=== PATIENT | female | born 1945 | race Caucasian/White ===

== ENCOUNTER → 2016-10-14 | Outpatient (CLI) | payer MEDICARE, OTHER ==
[2016-10-14 10:06] LABS: CHLORIDE,CL 105 mmol/L (98-110); SODIUM,NA 141 mmol/L (136-146)
== END ==
LOC: MW.CHFP 09:18
PROVIDERS: ATTEND Physician Assistant
DX: R10.11 Right upper quadrant pain (principal)
CPT/HCPCS: 36415; 80053; 85025; 85652; 99214

== ENCOUNTER → 2016-11-04 | Outpatient (CLI) | payer MEDICARE, OTHER | LOC: MW.CHFP 08:00 | PROVIDERS: ATTEND Emergency Medicine | DX: I10 Essential (primary) hypertension (principal); I73.9 Peripheral vascular disease, unspecified; F40.01 Agoraphobia with panic disorder; Z23 Encounter for immunization | CPT/HCPCS: 90732; 99214; G0009 ==

== ENCOUNTER → 2016-12-25 | Outpatient (CLI) | payer MEDICARE, OTHER ==
--- NOTE | 2016-12-25 16:50 | XA ---
Exam Date: 12/25/16 Patient's Age: 71 HEIGHT: 61.5 in. WEIGHT: 146.0 lbs. INDICATIONS: History of cancer, hysterectomy, osteopenic. FRACTURES: TREATMENTS: Allopurinol ASSESSMENT: The BMD measured at Femur Neck Mean is 0.643 g/cm2 with a T-score of -2.8. This patient is considered osteoporotic according to World Health Organization ( WHO) criteria. Fracture risk is high. Pharmacological treatment, if not already prescribed, should be started. A followup bone density test is recommended in one year to monitor response to therapy. The BMD measured at Femur Troch Mean is 0.645 g/cm2 with a T-score of -1.8 is considered moderately low. Fracture risk is moderate. Treatment is advised if there are other risk factors. RESULTS: Site Region Age Classification T-Score BMD AP Spine L2-L4 [age] Osteopenia -2.3 0.934 g/cm2 Dual Femur Neck Mean 71.2 Osteoporosis -2.8 0.643 g/cm2 Dual Femur Troch Mean 73.2 N/A -1.8 0.645 g/cm2 Dual Femur Total Mean 73.2 Osteopenia -2.0 0.750 g/cm2 World Health Organization - Criteria for post-menopausal, women: Normal: T-Score at or above -1 SD Osteopenia: T-Score between -1 and -2.5 SD Osteoporosis: T-Score at or below -2.5 SD RECOMMENDATION: Pharmacologic treatment recommendations & Initiate pharmacologic treatment: - In those with hip or vertebral (clinical or asymptomatic) fractures - In those with T -scores <-2.5 at the femoral neck, total hip, or lumbar spine by DXA - In postmenopausal women and men age 50 and older with low bone mass (T-score between -1.0 and -2.5, osteopenia) at the femoral neck, total hip, or lumbar spine by DXA and a 10-year hip fracture probability >3 % or a 10-year major osteoporosis-related fracture probability >20% based on the [place]-adapted WHO absolute fracture risk model (Fracture Risk Algorithm (FRAX); www. NOF.org and www.shef.ac.uk/FRAX) FOLLOW UP: People with diagnosed cases of osteoporosis or at high risk for fracture should have regular bone mineral density tests. For patients eligible for Medicare, routine testing is allowed once every 2 years. The testing frequency can be increased to 1 year for patients who have rapidly progressing disease, those who are reviewing or discontinuing medial therapy to restore bone mass, or have additional risk factors. People with diagnosed cases of osteoporosis or osteopenia should be regularly tested for bone mineral density. For patient eligible for Medicare, routine testing is allowed once every 2 years. The testing frequency can be increased to 1 year for patients who have rapidly progressing disease, or for those who are receiving medial therapy to restore bone mass. [facility] -- CHANA Trotter [phone] - FAX: [phone] CONNIE
--- NOTE | 2016-12-25 16:53 | MY ---
EXAMINATION: Bilateral digital mammography utilizing CAD. HISTORY: Screening exam. Comparison is made to previous studies dated 10/11/2015, 10/04/2014, 014.. FINDINGS: Bilateral fibroglandular densities. There is a two-view asymmetry which is slightly incre asing within the subareolar left breast posterior depth. Otherwise, no suspicious calcifications, m asses or architectural distortions. No pathologic appearing lymph nodes, no abnormal skin thickeni ng or nipple inversion. Other CAD highlighted regions appear normal at this time. IMPRESSION: BI-RADS category 0 - Incomplete study. Left breast diagnostic is needed for further ev aluation. THE FALSE-NEGATIVE RATE OF MAMMOGRAM IS APPROXIMATELY 10%. MANAGEMENT OF A PALPABLE ABNORMALITY MUST BE BASED UPON CLINICAL GROUNDS. SENSITIVITY FOR DETECTION OF ABNORMALITIES IN DENSE BREASTS IS LOW. NOTE: A letter will be sent to the patient regarding findings. [facility] -- [place] [phone] - FAX [phone]
== END ==
LOC: MW.MAM 12:57
PROVIDERS: ATTEND Obstetrics & Gynecology
DX: Z12.31 Encounter for screening mammogram for malignant neoplasm of breast (principal); N95.1 Menopausal and female climacteric states; M85.88 Other specified disorders of bone density and structure, other site
CPT/HCPCS: 77080; G0202

== ENCOUNTER 2017-12-12 13:23 | Emergency (ER) | payer MEDICARE, OTHER ==
--- NOTE | 2017-12-12 14:05 | EDM.PDOC ---
ED HPI GENERAL MEDICAL PROBLEM - General Chief Complaint: General Stated Complaint: WEAKNESS IN LEGS Time Seen by Provider: 12/12/17 14:02 Source of Information: Reports: Patient History Limitations: Reports: No Limitations - History of Present Illness INITIAL COMMENTS - FREE TEXT/NARRATIVE: HISTORY AND PHYSICAL: []72-year-old female presenting with weakness to her legs History of Present Illness: []Patient has history over the last year of having this weakness off and on She saw Dr. Colmenares 2 weeks ago for this concern. Review of Systems: As per history of present illness and below otherwise all systems reviewed and negative. Past medical history: As per history of present illness and as reviewed below otherwise noncontributory. Surgical history: As per history of present illness and as reviewed below otherwise noncontributory. Social history: No reported history of drug or alcohol abuse. Family history: As per history of present illness and as reviewed below otherwise noncontributory. Physical exam: Alert and oriented female answering questions appropriately in full sentences without any shortness of breath. HEENT: Atraumatic, normocehpalic, pupils reactive, negative for conjunctival pallor or scleral icterus, mucous membranes moist, throat clear, neck supple, nontender, trachea midline. Lungs: Clear to auscultation, breath sounds equal bilaterally, chest non tender. Heart: S1S2, regular, negative for clicks, rubs, or JVD. Abdomen: Soft, nondistended, nontender. Negative for masses or hepatossplenmegaly. Negative for costovertebral tenderness. Pelvis: Stable nontender. Genitourinary: Deferred. Rectal: Deferred Extremities: Atraumatic, negative for cords or calf pain. Weakness with trying to raise knees off the chair. Equal strength with flexion less strength with extension Neurovascular unremarkable. Neuro: Awake, alert, oriented. Cranial nerves II through XII unremarkable. Cerebellum unremarkable. Motor and sensory unremarkable throughout. Exam nonfocal. Discussed the results of testing with patient that given her reassurances all her questions answered verbalizes understanding Diagnostics: []Lumbosacral spine x-ray Thoracic spine x-ray Urinalysis Therapeutics: [] Impression: []Leg weakness Plan: []Discharged to home Follow-up with Dr. Colmenares Return to emergency room as needed Definitive disposition and diagnosis as appropriate pending reevaluation and review of above. - Related Data Allergies Allergy/AdvReac Type Severity Reaction Status Date / Time Penicillins Allergy Mild Cannot Verified 12/12/17 13:32 Remember Home Meds: Home Meds LORazepam 0.5 mg PO TID PRN 12/12/17 [History] Metoprolol Succinate [Toprol XL 50mg] 50 mg PO DAILY 12/12/17 [History] Past Medical History Cardiovascular History: Reports: Hypertension Psychiatric History: Reports: Anxiety Oncologic (Cancer) History: Reports: Breast - Infectious Disease History Infectious Disease History: Reports: Chicken Pox, Measles, Mumps - Past Surgical History Oncologic Surgical History: Reports: Biopsy of Breast, Lumpectomy Social & Family History - Family History Family Medical History: Noncontributory - Tobacco Use Smoking Status *Q: Never Smoker - Recreational Drug Use Recreational Drug Use: No ED ROS GENERAL - Review of Systems Review Of Systems: ROS reveals no pertinent complaints other than HPI. ED EXAM, GENERAL - Physical Exam Exam: See Below (see dictation) Course - Vital Signs Last Recorded V/S: Last Vital Signs Temp 36.9 C 12/12/17 13:34 Pulse 102 H 12/12/17 13:34 Resp 18 12/12/17 13:34 BP 193/82 H 12/12/17 13:34 Pulse Ox 92 L 12/12/17 13:34 - Orders/Labs/Meds Orders: Active Orders 24 hr Category Date Time Status Lumbar Spine 2 or 3V [CR] Stat Exams 12/12/17 14:01 Taken Thoracic Spine 3V [CR] Stat Exams 12/12/17 14:01 Taken UA W/MICROSCOPIC [URIN] Stat Lab 12/12/17 14:21 Ordered Labs: Laboratory Tests 12/12/17 12/12/17 12/12/17 Range/Units 14:21 15:15 15:15 WBC 10.74 (4.0-11.0) K/uL RBC 5.12 (4.30-5.90) M/uL Hgb 15.9 (12.0-16.0) g/dL Hct 45.8 (36.0-46.0) % MCV 89.5 (80.0-98.0) fL MCH 31.1 (27.0-32.0) pg MCHC 34.7 (31.0-37.0) g/dL RDW Std Deviation 43.5 (28.0-62.0) fl RDW Coeff of Bo 13 (11.0-15.0) % Plt Count 287 (150-400) K/uL MPV 10.00 (7.40-12.00) fL Neut % (Auto) 57.9 (48.0-80.0) % Lymph % (Auto) 33.1 (16.0-40.0) % [place] % (Auto) 7.4 (0.0-15.0) % Eos % (Auto) 1.3 (0.0-7.0) % Baso % (Auto) 0.3 (0.0-1.5) % Neut # (Auto) 6.2 H (1.4-5.7) K/uL Lymph # (Auto) 3.6 H (0.6-2.4) K/uL [place] # (Auto) 0.8 (0.0-0.8) K/uL Eos # (Auto) 0.1 (0.0-0.7) K/uL Baso # (Auto) 0.0 (0.0-0.1) K/uL Nucleated RBC % 0.0 /100WBC Nucleated RBCs # 0 K/uL Sodium 138 (136-145) mmol/L Potassium 3.8 (3.5-5.1) mmol/L Chloride 103 (98-107) mmol/L Carbon Dioxide 25.0 (21.0-32.0) mmol/L BUN 13 (7.0-18.0) mg/dL Creatinine 0.8 (0.6-1.0) mg/dL Est Cr Clr Drug Dosing 47.67 mL/min Estimated GFR (MDRD) > 60.0 ml/min Glucose 110 H (74-106) mg/dL Calcium 9.2 (8.5-10.1) mg/dL Magnesium 2.1 H (1.5-2.0) mg/dL Total Bilirubin 0.4 (0.2-1.0) mg/dL AST 25 (15-37) IU/L ALT 39 (14-63) IU/L Alkaline Phosphatase 84 (46-116) U/L Total Protein 7.7 (6.4-8.2) g/dL Albumin 3.8 (3.4-5.0) g/dL Globulin 3.9 H (2.0-3.5) g/dL Albumin/Globulin Ratio 1.0 L (1.3-2.8) Urine Color YELLOW Urine Appearance CLEAR Urine pH 5.0 (5.0-8.0) Ur Specific [place] >= 1.030 (1.001-1.035) Urine Protein NEGATIVE (NEGATIVE) mg/dL Urine Glucose (UA) NEGATIVE (NEGATIVE) mg/dL Urine Ketones TRACE H (NEGATIVE) mg/dL Urine Occult Blood TRACE-INTACT (NEGATIVE) Urine Nitrite NEGATIVE (NEGATIVE) Urine Bilirubin NEGATIVE (NEGATIVE) Urine Urobilinogen 0.2 (<2.0) EU/dL Ur Leukocyte Esterase NEGATIVE (NEGATIVE) Urine RBC 0-1 (0-2/HPF) Urine WBC 0-1 (0-5/HPF) Ur Epithelial Cells RARE (NONE-FEW) Urine Bacteria RARE (NEGATIVE) Departure - Departure Time of Disposition: 16:16 Disposition: Home, Self-Care 01 Condition: Good Clinical Impression: Weakness - Discharge Information Instructions: Weakness, Unpi-ny-Swng Forms: ED Department Discharge - My Orders Last 24 Hours: My Active Orders 12/12/17 14:01 Lumbar Spine 2 or 3V [CR] Stat Thoracic Spine 3V [CR] Stat 12/12/17 14:21 UA W/MICROSCOPIC [URIN] Stat - Assessment/Plan Last 24 Hours: My Active Orders 12/12/17 14:01 Lumbar Spine 2 or 3V [CR] Stat Thoracic Spine 3V [CR] Stat 12/12/17 14:21 UA W/MICROSCOPIC [URIN] Stat
[2017-12-12 15:41] LABS: CHLORIDE,CL 103 mmol/L (98-107); SODIUM,NA 138 mmol/L (136-145)
--- NOTE | 2017-12-14 14:11 | CR ---
EXAM DATE: 12/12/17 PATIENT'S AGE: 72 Patient: CHARMAINE SILVERIO Facility: [place], [place] Site . Site : 1945 Study: XRay Spine Lumbar [id number]/28/2018 3:10:16 PM Ordering Physician: Doctor Holloway Final Report: INDICATION: Weakness to legs TECHNIQUE: Lumbar spine radiograph 3 views COMPARISON: None FINDINGS: Bones: No acute fractures or aggressive bone lesions are identified. Alignment is normal. Moderate diffuse osteopenia is noted and likely due to osteoporosis, given the patient`s age. Discs: Prominent endplate osteophytes are present from L2-L5. Mild degenerative disc narrowing with vacuum phenomena seen at L5-S1. Moderate bilateral facet osteoarthritis is present at L4-5 and L5-S1. Soft tissues: Unremarkable. No radiopaque foreign bodies are seen. Calcification of the abdominal aorta noted. IMPRESSION: 1. No acute osseous injuries or abnormalities are noted. Dictated by Júnior Donis MD @ 12/12/2017 3:15:08 PM Dictated by: Júnior Donis MD @ 12/12/2017 15:15:11 (Electronic Signature) Report Signed by Proxy. CONNIE
--- NOTE | 2017-12-14 14:12 | CR ---
EXAM DATE: 12/12/17 PATIENT'S AGE: 72 Patient: CHARMAINE SILVERIO Facility: [place], [place] Site . Site : 1945 Study: XRay Spine Thoracic [id number]/28/2018 3:10:39 PM Ordering Physician: Doctor Holloway Final Report: INDICATION: Weakness to legs TECHNIQUE: Thoracic spine radiograph 3 views COMPARISON: None FINDINGS: Bones: No acute fractures or aggressive bone lesions are identified. Grade 1 retrolisthesis of C4-5 is noted with moderate to severe degenerative disc disease present at C5-6 and C6-7. Discs: Mild diffuse degenerative disc narrowing with endplate osteophytes are present in the mid and lower thoracic spine. The facet joints are unremarkable. Soft tissues: Unremarkable. No radiopaque foreign bodies are seen. IMPRESSION: 1. No acute osseous injuries or abnormalities are noted. 2. Grade 1 retrolisthesis of C4-5 is noted with moderate to severe degenerative disc disease present at C5-6 and C6-7. Dictated by: Júnior Donis MD @ 12/12/2017 15:17:16 (Electronic Signature) Report Signed by Proxy. CONNIE
== END 2017-12-12 16:37 | disposition home or self-care (01) ==
LOC: MW.ED 13:23
DX: R29.91 Unspecified symptoms and signs involving the musculoskeletal system (principal); I10 Essential (primary) hypertension; Z88.0 Allergy status to penicillin; Z79.899 Other long term (current) drug therapy
CPT/HCPCS: 36415; 72072; 72072-26; 72100; 72100-26; 80053; 81001; 83735; 85025; 99283; 99285

== ENCOUNTER 2018-10-17 10:33 | Emergency (ER) | payer MEDICARE, OTHER ==
--- NOTE | 2018-10-17 11:08 | EDM.PDOC ---
ED HPI GENERAL MEDICAL PROBLEM - General Chief Complaint: General Stated Complaint: FEELING OFF Time Seen by Provider: 10/17/18 10:48 Source of Information: Reports: Patient, Family History Limitations: Reports: No Limitations - History of Present Illness INITIAL COMMENTS - FREE TEXT/NARRATIVE: HISTORY AND PHYSICAL: History of present illness: Patient is a 73-year-old female who presents to the ED today with concerns of not being able to sleep and increased anxiety. Patient states she has a history of anxiety but over the past week she's noticed this has increased. She does see Diana El for medication management of this and has an appointment in a week with her. She states she is concerned that she wakes up at about 2 AM for the past 3 nights and cannot get back to sleep. She states that she "feels off" and is not really able to describe this. Patient's significant other expresses that over the past year he has noticed she's had increased anxiety. Denies any change in to her memory but states that the anxiety has changed over the past year. Patient states she was recently diagnosed with myasthenia gravis and states that she has had an increased anxiety over this. She does see Dr. Colmenares as her primary care provider. She denies fever, chills, shortness of breath, difficulties breathing, chest pain, headache, abdominal pain, burning with urination, diarrhea, constipation, dizziness, lightheadedness, syncope, any recent lifestyle changes, or all other GI, , cardiovascular, or respiratory concerns. Patient does have a history of anxiety and depression but denies any other health history at this time. Review of systems: As per history of present illness and below otherwise all systems reviewed and negative. Past medical history: As per history of present illness and as reviewed below otherwise noncontributory. Surgical history: As per history of present illness and as reviewed below otherwise noncontributory. Social history: See social history for further information Family history: As per history of present illness and as reviewed below otherwise noncontributory. Physical exam: General: Patient is alert, oriented, and in no acute distress. She is mildly anxious appearing pacing around the room. Nontoxic appearing. HEENT: Atraumatic, normocephalic, pupils equal and reactive bilaterally, negative for conjunctival pallor or scleral icterus, mucous membranes moist, TMs normal bilaterally, throat clear, neck supple, nontender, trachea midline. No drooling or trismus noted. No meningeal signs. No hot potato voice noted. Lungs: Clear to auscultation, breath sounds equal bilaterally, chest nontender. Heart: S1S2, regular rate and rhythm without overt murmur Abdomen: Soft, nondistended, nontender. Negative for masses or hepatosplenomegaly. Negative for costovertebral tenderness. Pelvis: Stable nontender. Genitourinary: Deferred. Rectal: Deferred. Skin: Intact, warm, dry. No lesions or rashes noted. Extremities: Atraumatic, moves all per self, negative for cords or calf pain. Neurovascular unremarkable. Neuro: Awake, alert, oriented. Cranial nerves II through XII unremarkable. Cerebellum unremarkable. Motor and sensory unremarkable throughout. Exam nonfocal. Notes: Exam today is unremarkable. Vitals are reassuring. On exam patient is anxious appearing and unable to sit for long periods of time. She currently has an appointment with her psychiatrist, Diana El scheduled in a week who manages her anxiety. We'll do lab work today and EKG to assess for other causes of her increase in anxiety and insomnia. Patient had a brain MRI with and without contrast on 09/10/2018 that showed no acute intracranial findings this was reviewed and followed up by Dr. Garrido. Labs today are unremarkable. EKG is unremarkable. Supportive care measures were reviewed and discussed. Voices understanding and is agreeable to plan of care. Discussed the importance to keep her follow-up with Diana El. She denies any further questions or concerns at this time. Diagnostics: CBC, CMP, TSH, UA, EKG Therapeutics: None Prescription: None Impression: 1. Insomnia 2. Anxiety with depression Plan: 1. Keep your appointment with Diana El for follow-up with your medications. Also, follow up with her primary care provider, Dr. Colmenares. 2. You can use your current medications as prescribed for insomnia and anxiety. 3. Return to the ED as needed and as discussed. Definitive disposition and diagnosis as appropriate pending reevaluation and review of above. - Related Data Allergies Allergy/AdvReac Type Severity Reaction Status Date / Time amoxicillin [From Augmentin] Allergy Rash Verified 10/17/18 10:46 clavulanic acid Allergy Rash Verified 10/17/18 10:46 [From Augmentin] escitalopram Allergy Blurred Verified 10/17/18 10:46 Vision Home Meds: Home Meds LORazepam 0.5 mg PO TID PRN 12/12/17 [History] Metoprolol Succinate [Toprol XL 50mg] 50 mg PO DAILY 12/12/17 [History] Past Medical History HEENT History: Reports: Other (See Below) Other HEENT History: wears glasses, top denture bottom partial Cardiovascular History: Reports: Hypertension, Other (See Below) Other Cardiovascular History: was told she had a murmur in the past Respiratory History: Reports: None Gastrointestinal History: Reports: Colon Polyp, GERD Genitourinary History: Reports: None [employer] History: Reports: Musculoskeletal History: Reports: None Neurological History: Reports: Other (See Below) Other Neuro History: recent diagnosis of myasthenia gravis Psychiatric History: Reports: Anxiety, Depression Endocrine/Metabolic History: Reports: Other (See Below) Hematologic History: Reports: Blood Transfusion(s) Other Hematologic History: blood transfusion as an Immunologic History: Reports: Other (See Below) Oncologic (Cancer) History: Reports: Breast Dermatologic History: Reports: None - Infectious Disease History Infectious Disease History: Reports: Chicken Pox, Measles, Mumps - Past Surgical History Head Surgeries/Procedures: Reports: None GI Surgical History: Reports: Appendectomy, Cholecystectomy, Colonoscopy, Hernia , Abdominal Female Surgical History: Reports: Breast Biopsy, D&C, Hysterectomy, Other ( See Below) Other Female Surgeries/Procedures: bladder surgery Endocrine Surgical History: Reports: Other (See Below) Other Endocrine Surgeries/Procedures: lymphnode removal, right axillary Oncologic Surgical History: Reports: Biopsy of Breast, Lumpectomy Social & Family History - Family History Family Medical History: Noncontributory - Tobacco Use Smoking Status *Q: Never Smoker - Recreational Drug Use Recreational Drug Use: No ED ROS GENERAL - Review of Systems Review Of Systems: ROS reveals no pertinent complaints other than HPI. ED EXAM, GENERAL - Physical Exam Exam: See Below (see dictation) Course - Vital Signs Last Recorded V/S: Last Vital Signs Temp 96.2 F 10/17/18 10:43 Pulse 76 10/17/18 12:20 Resp 18 10/17/18 12:20 BP 162/67 H 10/17/18 12:20 Pulse Ox 95 10/17/18 12:20 - Orders/Labs/Meds Orders: Active Orders 24 hr Category Date Time Status EKG 12 Lead [EKG Documentation Completion] [RC] STAT Care 10/17/18 10:56 Active Labs: Laboratory Tests 10/17/18 10/17/18 10/17/18 Range/Units 11:05 11:05 11:20 WBC 9.97 (4.0-11.0) K/uL RBC 5.21 (4.30-5.90) M/uL Hgb 16.0 (12.0-16.0) g/dL Hct 46.7 H (36.0-46.0) % MCV 89.6 (80.0-98.0) fL MCH 30.7 (27.0-32.0) pg MCHC 34.3 (31.0-37.0) g/dL RDW Std Deviation 44.4 (28.0-62.0) fl RDW Coeff of Bo 14 (11.0-15.0) % Plt Count 297 (150-400) K/uL MPV 10.00 (7.40-12.00) fL Neut % (Auto) 39.9 L (48.0-80.0) % Lymph % (Auto) 52.0 H (16.0-40.0) % [place] % (Auto) 6.5 (0.0-15.0) % Eos % (Auto) 1.1 (0.0-7.0) % Baso % (Auto) 0.5 (0.0-1.5) % Neut # (Auto) 4.0 (1.4-5.7) K/uL Lymph # (Auto) 5.2 H (0.6-2.4) K/uL [place] # (Auto) 0.7 (0.0-0.8) K/uL Eos # (Auto) 0.1 (0.0-0.7) K/uL Baso # (Auto) 0.1 (0.0-0.1) K/uL Nucleated RBC % 0.0 /100WBC Nucleated RBCs # 0 K/uL Sodium 139 (136-145) mmol/L Potassium 4.0 (3.5-5.1) mmol/L Chloride 104 (98-107) mmol/L Carbon Dioxide 24.6 (21.0-32.0) mmol/L BUN 11 (7.0-18.0) mg/dL Creatinine 0.7 (0.6-1.0) mg/dL Est Cr Clr Drug Dosing 52.40 mL/min Estimated GFR (MDRD) > 60.0 ml/min Glucose 117 H (74-106) mg/dL Calcium 9.2 (8.5-10.1) mg/dL Total Bilirubin 0.8 (0.2-1.0) mg/dL AST 20 (15-37) IU/L ALT 26 (14-63) IU/L Alkaline Phosphatase 80 (46-116) U/L Total Protein 7.3 (6.4-8.2) g/dL Albumin 3.6 (3.4-5.0) g/dL Globulin 3.7 (2.6-4.0) g/dL Albumin/Globulin Ratio 1.0 (0.9-1.6) TSH 3rd Generation 1.39 (0.36-3.74) uIU/mL Urine Color YELLOW Urine Appearance CLEAR Urine pH 5.5 (5.0-8.0) Ur Specific [place] <= 1.005 (1.001-1.035) Urine Protein NEGATIVE (NEGATIVE) mg/dL Urine Glucose (UA) NEGATIVE (NEGATIVE) mg/dL Urine Ketones NEGATIVE (NEGATIVE) mg/dL Urine Occult Blood TRACE-INTACT H (NEGATIVE) Urine Nitrite NEGATIVE (NEGATIVE) Urine Bilirubin NEGATIVE (NEGATIVE) Urine Urobilinogen 0.2 (<2.0) EU/dL Ur Leukocyte Esterase NEGATIVE (NEGATIVE) Urine RBC 0-2 (0-2/HPF) Urine WBC 0-2 (0-5/HPF) Ur Epithelial Cells RARE (NONE-FEW) Urine Bacteria RARE (NEGATIVE) Departure - Departure Time of Disposition: 11:50 Disposition: Home, Self-Care 01 Clinical Impression: Anxiety Insomnia Qualifiers: Insomnia type: unspecified Qualified Code(s): G47.00 - Insomnia, unspecified - Discharge Information Instructions: Generalized Anxiety Disorder, Adult, Insomnia Referrals: Rico Colmenares MD [Primary Care Provider] - Forms: ED Department Discharge Additional Instructions: The following information is given to patients seen in the emergency department who are being discharged to home. This information is to outline your options for follow-up care. We provide all patients seen in our emergency department with a follow-up referral. The need for follow-up, as well as the timing and circumstances, are variable depending upon the specifics of your emergency department visit. If you don't have a primary care physician on staff, we will provide you with a referral. We always advise you to contact your personal physician following an emergency department visit to inform them of the circumstance of the visit and for follow-up with them and/or the need for any referrals to a consulting specialist. The emergency department will also refer you to a specialist when appropriate. This referral assures that you have the opportunity for follow-up care with a specialist. All of these measure are taken in an effort to provide you with optimal care, which includes your follow-up. Under all circumstances we always encourage you to contact your private physician who remains a resource for coordinating your care. When calling for follow-up care, please make the office aware that this follow-up is from your recent emergency room visit. If for any reason you are refused follow-up, please contact the [facility] Emergency Department at and asked to speak to the emergency department charge nurse. [facility] [address] [place] [address] [place] [address] 1. Keep your appointment with Diana El for follow-up with your medications. Also, follow up with her primary care provider, Dr. Colmenares. 2. You can use your current medications as prescribed for insomnia and anxiety. 3. Return to the ED as needed and as discussed. - My Orders Last 24 Hours: My Active Orders 10/17/18 10:56 EKG 12 Lead [EKG Documentation Completion] [RC] STAT - Assessment/Plan Last 24 Hours: My Active Orders 10/17/18 10:56 EKG 12 Lead [EKG Documentation Completion] [RC] STAT
[2018-10-17 11:42] LABS: CHLORIDE,CL 104 mmol/L (98-107); SODIUM,NA 139 mmol/L (136-145)
== END 2018-10-17 12:20 | disposition home or self-care (01) ==
LOC: MW.ED 10:33
DX: G47.00 Insomnia, unspecified (principal); F41.8 Other specified anxiety disorders; I10 Essential (primary) hypertension; Z79.899 Other long term (current) drug therapy; Z88.1 Allergy status to other antibiotic agents; Z88.8 Allergy status to other drugs, medicaments and biological substances
CPT/HCPCS: 36415; 80053; 81001; 84443; 85025; 93005; 99283; 99283-25

== ENCOUNTER 2020-02-03 16:39 | Observation (INO) | payer MEDICARE, OTHER ==
--- NOTE | 2020-02-03 17:18 | EDM.PDOC ---
ED HPI GENERAL MEDICAL PROBLEM - General Chief Complaint: General Stated Complaint: FALL Time Seen by Provider: 02/03/20 16:41 Source of Information: Reports: Patient History Limitations: Reports: No Limitations - History of Present Illness INITIAL COMMENTS - FREE TEXT/NARRATIVE: HISTORY AND PHYSICAL: History of present illness: Patient is a 74-year-old female who presents to the emergency room after having fallen for unknown reason. She states she was walking using her cane when she suddenly just fell to the ground hitting her left ribs, left hand and her head. She denies any loss of consciousness. Prior to the fall she was asymptomatic and states "I am not sure why I fell... But I have been doing that more a lot lately". Patient denies any fever, chills, headache, change in vision, syncope or near syncope. Denies any chest pain, back pain, shortness of breath or cough. Denies any abdominal pain, nausea, vomiting, diarrhea, constipation or dysuria. Has not noted any blood in urine or stool. Patient has been eating and drinking appropriately. Review of systems: As per history of present illness and below otherwise all systems reviewed and negative. Past medical history: As per history of present illness and as reviewed below otherwise noncontributory. Surgical history: As per history of present illness and as reviewed below otherwise noncontributor y. Social history: See social history for further information Family history: As per history of present illness and as reviewed below otherwise noncontributory. Physical exam: General: Well-developed and well-nourished 74-year-old female. Alert and oriented. Nontoxic-appearing and in no acute distress. HEENT: Nontender with palpation, no obvious injury, no crepitus noted, normocephalic, pupils equal and reactive bilaterally, negative for conjunctival pallor or scleral icterus, mucous membranes moist, TMs normal bilaterally, throat clear, neck supple, nontender, trachea midline. No drooling or trismus noted. No meningeal signs. No hot potato voice noted. Lungs: Clear to auscultation, breath sounds equal bilaterally, pain with palpation to the left lateral lower chest wall. Heart: S1S2, regular rate and rhythm without overt murmur Abdomen: Soft, nondistended, nontender. Negative for masses or hepatosplenomegaly. Negative for costovertebral tenderness. Pelvis: Stable nontender. C-spine/Back: No pinpoint vertebral tenderness upon palpation. No crepitus, step-offs or obvious deformities. Patient is ambulatory into the emergency room without difficulty or deficit -she uses a 4 prong cane. Able to rock back on heels and walk on toes. Denies any urinary or fecal incontinence. Denies any numbness, tingling or saddle paresthesia. No concerns of serious infection, fracture or cord compression, or cauda equina syndrome. Deep tendon reflexes equal bilaterally. Skin: Bruising to left hand, near the 4-5th digits. Healing bruising noted to the left hip (states its from an old fall). Otherwise skin is intact, warm, dry. No lesions or rashes noted. Extremities: Bruising and tenderness to the left hand along the third through fifth digits. Moves all extremities per self without difficulty or deficits, negative for cords or calf pain. Neurovascular unremarkable. Neuro: Awake, alert, oriented. Cranial nerves II through XII unremarkable. Cerebellum unremarkable. Motor and sensory unremarkable throughout. Exam nonfocal. Notes: Hand x-ray shows diffuse degenerative changes with osteopenia. No acute findings are noted. No acute intracranial abnormalities are noted on the head CT. X-ray of the chest shows two definite rib fracture of the 4th and 5th ribs. Mild left midlung atelectasis. Lab work shows no significant findings. Discussed with patient about possible admission versus discharge with close follow-up, she would rather stay overnight for further evaluation and monitoring. Diagnostics: CBC, CMP, Troponin, EKG, CXR with Rib, Hand x-ray, Orthostatic vitals Therapeutics: SL Impression: Rib Fracture, left Unexplained fall Hand contusion, left Plan: Definitive disposition and diagnosis as appropriate pending reevaluation and review of above. left ribs Pain Score (Numeric/FACES): 4 - Related Data Allergies Allergy/AdvReac Type Severity Reaction Status Date / Time amoxicillin [From Augmentin] Allergy Rash Verified 02/03/20 20:23 clavulanic acid Allergy Rash Verified 02/03/20 20:23 [From Augmentin] escitalopram Allergy Blurred Verified 02/03/20 20:23 Vision mirtazapine Allergy Rash Verified 02/03/20 20:24 tape Allergy Rash Uncoded 02/03/20 20:23 Home Meds: Home Meds Metoprolol Succinate [Toprol XL 50mg] 50 mg PO DAILY 12/12/17 [History] Sertraline [Zoloft] 75 mg PO DAILY 02/03/20 [History] Past Medical History HEENT History: Reports: Other (See Below) Other HEENT History: wears glasses, top denture bottom partial Cardiovascular History: Reports: Hypertension, Other (See Below) Other Cardiovascular History: was told she had a murmur in the past Respiratory History: Reports: None Gastrointestinal History: Reports: Colon Polyp, GERD Genitourinary History: Reports: None [employer] History: Reports: Musculoskeletal History: Reports: None Neurological History: Reports: Other (See Below) Other Neuro History: recent diagnosis of myasthenia gravis Psychiatric History: Reports: Anxiety, Depression Endocrine/Metabolic History: Reports: Other (See Below) Hematologic History: Reports: Blood Transfusion(s) Other Hematologic History: blood transfusion as an infant Immunologic History: Reports: Other (See Below) Oncologic (Cancer) History: Reports: Breast Dermatologic History: Reports: None - Infectious Disease History Infectious Disease History: Reports: Chicken Pox, Measles, Mumps - Past Surgical History Head Surgeries/Procedures: Reports: None GI Surgical History: Reports: Appendectomy, Cholecystectomy, Colonoscopy, Hernia, Abdominal Female Surgical History: Reports: Breast Biopsy, D&C, Hysterectomy, Other (See Below) Other Female Surgeries/Procedures: bladder surgery Endocrine Surgical History: Reports: Other (See Below) Other Endocrine Surgeries/Procedures: lymphnode removal, right axillary Oncologic Surgical History: Reports: Biopsy of Breast, Lumpectomy Social & Family History - Family History Family Medical History: Noncontributory ED ROS GENERAL - Review of Systems Review Of Systems: Comprehensive ROS is negative, except as noted in HPI. ED EXAM, GENERAL - Physical Exam Exam: See Below (See dictation) Course - Vital Signs Last Recorded V/S: Last Vital Signs Temp 96.7 F L 02/03/20 17:05 Pulse 81 02/03/20 19:31 Resp 18 02/03/20 17:05 BP 146/58 H 02/03/20 19:31 Pulse Ox 90 L 02/03/20 19:31 - Orders/Labs/Meds Orders: Active Orders 24 hr Category Date Time Status Admission Status [Patient Status] [ADT] Stat ADT 02/03/20 18:22 Active Ambulate [RC] ASDIRECTED Care 02/03/20 18:56 Active Antiembolic Devices [RC] PER UNIT ROUTINE Care 02/03/20 19:01 Active EKG Documentation Completion [RC] STAT Care 02/03/20 17:06 Active Orthostatic Vital Signs [RC] ASDIRECTED Care 02/03/20 17:06 Active Oxygen Therapy [RC] PRN Care 02/03/20 18:56 Active Pulse Oximetry [RC] PRN Care 02/03/20 19:00 Active RT Aerosol Therapy [RC] ASDIRECTED Care 02/03/20 19:03 Active VTE/DVT Education [RC] PER UNIT ROUTINE Care 02/03/20 18:56 Active Vital Signs [RC] Q4H Care 02/03/20 18:56 Active PT Evaluation and Treatment [CONS] Routine Cons 02/03/20 18:56 Active Heart Healthy Diet [DIET] Diet 02/03/20 Dinner Active Acetaminophen [Tylenol] Med 02/03/20 18:56 Active 650 mg PO Q4H PRN Albuterol/Ipratropium [DuoNeb 3.0-0.5 MG/3 ML] Med 02/03/20 18:56 Active 3 ml NEB Q4HRRT PRN Metoprolol Succinate [Toprol XL] Med 02/04/20 09:00 Active 50 mg PO DAILY Sertraline [Zoloft] Med 02/04/20 09:00 Active 70 mg PO DAILY hydrALAZINE [Apresoline] Med 02/03/20 19:04 Active 20 mg IVPUSH Q4H PRN Sequential Compression Device [OM.PC] Per Unit Routine Oth 02/03/20 19:00 Ordered Medication Orders Acetaminophen (Tylenol) 650 mg PO Q4H PRN PRN Reason: Pain (Mild 1-3)/fever Albuterol/Ipratropium (Duoneb 3.0-0.5 Mg/3 Ml) 3 ml NEB Q4HRRT PRN PRN Reason: Shortness Of Breath/wheezing Hydralazine HCl (Apresoline) 20 mg IVPUSH Q4H PRN PRN Reason: Hypertension Metoprolol Succinate (Toprol Xl) 50 mg PO DAILY GAYLE Morphine Sulfate (Morphine) 1 mg IVPUSH Q4H PRN PRN Reason: Pain Sertraline HCl (Zoloft) 70 mg PO DAILY GAYLE Labs: Laboratory Tests 02/03/20 02/03/20 Range/Units 17:42 17:42 WBC 11.10 H (4.0-11.0) K/uL RBC 4.96 (4.30-5.90) M/uL Hgb 14.4 (12.0-16.0) g/dL Hct 44.9 (36.0-46.0) % MCV 90.5 (80.0-98.0) fL MCH 29.0 (27.0-32.0) pg MCHC 32.1 (31.0-37.0) g/dL RDW Std Deviation 45.3 (28.0-62.0) fl RDW Coeff of Bo 14 (11.0-15.0) % Plt Count 273 (150-400) K/uL MPV 9.70 (7.40-12.00) fL Neut % (Auto) 46.4 L (48.0-80.0) % Lymph % (Auto) 44.1 H (16.0-40.0) % [place] % (Auto) 6.8 (0.0-15.0) % Eos % (Auto) 2.2 (0.0-7.0) % Baso % (Auto) 0.5 (0.0-1.5) % Neut # (Auto) 5.2 (1.4-5.7) K/uL Lymph # (Auto) 4.9 H (0.6-2.4) K/uL [place] # (Auto) 0.8 (0.0-0.8) K/uL Eos # (Auto) 0.2 (0.0-0.7) K/uL Baso # (Auto) 0.1 (0.0-0.1) K/uL Nucleated RBC % 0.0 /100WBC Nucleated RBCs # 0 K/uL Sodium 135 L (136-145) mmol/L Potassium 4.0 (3.5-5.1) mmol/L Chloride 101 (98-107) mmol/L Carbon Dioxide 26.7 (21.0-32.0) mmol/L BUN 21 H (7.0-18.0) mg/dL Creatinine 0.8 (0.6-1.0) mg/dL Est Cr Clr Drug Dosing 45.14 mL/min Estimated GFR (MDRD) > 60.0 ml/min Glucose 118 H (74-106) mg/dL Calcium 8.2 L (8.5-10.1) mg/dL Total Bilirubin 0.3 (0.2-1.0) mg/dL AST 17 (15-37) IU/L ALT 18 (14-63) IU/L Alkaline Phosphatase 82 (46-116) U/L Troponin I < 0.050 (0.000-0.056) ng/mL Total Protein 7.4 (6.4-8.2) g/dL Albumin 3.7 (3.4-5.0) g/dL Globulin 3.7 (2.6-4.0) g/dL Albumin/Globulin Ratio 1.0 (0.9-1.6) Meds: Medications Generic Name Dose Route Start Last Admin Trade Name Freq PRN Reason Stop Dose Admin Acetaminophen 650 mg 02/03/20 18:56 Tylenol PO Q4H PRN Pain (Mild 1-3)/fever Albuterol/Ipratropium 3 ml 02/03/20 18:56 Duoneb 3.0-0.5 Mg/3 Ml NEB Q4HRRT PRN Shortness Of Breath/wheezing Hydralazine HCl 20 mg 02/03/20 19:04 Apresoline IVPUSH Q4H PRN Hypertension Metoprolol Succinate 50 mg 02/04/20 09:00 Toprol Xl PO DAILY GAYLE Morphine Sulfate 1 mg 02/03/20 19:22 Morphine IVPUSH Q4H PRN Pain Sertraline HCl 70 mg 02/04/20 09:00 Zoloft PO DAILY GALYE Discontinued Medications Generic Name Dose Route Start Last Admin Trade Name Freq PRN Reason Stop Dose Admin Lactated Ringer's 1,000 mls @ 125 mls/hr 02/03/20 19:00 Ringers, Lactated IV ASDIRECTED [facility] Tramadol HCl 50 mg 02/03/20 18:55 02/03/20 19:38 Ultram PO 02/03/20 18:56 50 mg ONETIME ONE Administration Departure - Departure Time of Disposition: 22:02 Disposition: Refer to Observation Clinical Impression: Ribs, multiple fractures Qualifiers: Encounter type: initial encounter Fracture type: closed Laterality: left Qualified Code(s): S22.42XA - Multiple fractures of ribs, left side, initial encounter for closed fracture Fall Qualifiers: Encounter type: initial encounter Qualified Code(s): W19.XXXA - Unspecified fall, initial encounter - Discharge Information Sepsis Event Note (ED) - Focused Exam Vital Signs: Vital Signs Temp Pulse Resp BP Pulse Ox 02/03/20 17:05 96.7 F L 80 18 183/73 H 93 L - My Orders Last 24 Hours: My Active Orders 02/03/20 17:06 EKG Documentation Completion [RC] STAT Orthostatic Vital Signs [RC] ASDIRECTED 02/03/20 18:22 Admission Status [Patient Status] [ADT] Stat - Assessment/Plan Last 24 Hours: My Active Orders 02/03/20 17:06 EKG Documentation Completion [RC] STAT Orthostatic Vital Signs [RC] ASDIRECTED 02/03/20 18:22 Admission Status [Patient Status] [ADT] Stat
--- NOTE | 2020-02-03 17:34 | CT ---
Head CT Technique: Multiple axial sections through the brain were obtained. Intravenous contrast was not utilized. Comparison: No prior intracranial imaging. Findings: Ventricles along with basal cisterns and sulci over the convexities are mildly prominent. Mild diminished density is noted within portions of the periventricular white matter which is most likely due to small vessel ischemic demyelination change. 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 No other abnormal parenchymal densities are seen. No evidence of intracranial hemorrhage. No midline shift or mass effect is seen. Bone window settings were reviewed. Visualized mastoid sinuses and visualized paranasal sinuses show nothing acute. No acute calvarial abnormality is appreciated. Impression: 1. Senescent change as noted above. 2. No acute intracranial abnormality is appreciated. Diagnostic code #2 Study was dictated in MDT
--- NOTE | 2020-02-03 17:50 | CR ---
Right hand: 3 views right hand were obtained. Comparison: No prior hand exam Mild joint space narrowing is scattered within the wrist. Chondrocalcinosis is noted within the triangular fibrocartilage. Soft tissue calcification is seen slightly proximal to the PIP joint within the third finger presumably dystrophic. Joint space narrowing is scattered throughout the MCP, DIP and PIP joints. Osteopenia is noted. No acute fracture, dislocation or other bony abnormality is seen. Impression: 1. Diffuse degenerative change as described above with osteopenia. 2. Nothing acute is appreciated on 3 view left hand exam. Diagnostic code #2 Study was dictated in MDT
--- NOTE | 2020-02-03 17:57 | CR ---
Chest and left ribs: Frontal view of the chest was obtained as well as 4 views left ribs. Comparison: Prior chest x-ray of 09/20/18 is available. Heart size at the upper limits of normal. Tortuous thoracic aorta is seen. Upper mediastinum is within normal limits. Slight atelectasis is seen within the left midlung. Minimally displaced fractures are seen within the left fourth and fifth ribs. Impression: 1. 2 definite rib fractures within the left fourth and fifth ribs. 2. Mild left midlung atelectasis. 3. No other acute finding is seen. Diagnostic code #3 Study was dictated in MDT
[2020-02-03 18:11] LABS: BLOOD UREA NITROGEN,BUN 21 mg/dL (7.0-18.0); CARBON DIOXIDE,CO2 26.7 mmol/L (21.0-32.0); CHLORIDE,CL 101 mmol/L (98-107); GLUCOSE RANDOM 118 mg/dL (74-106); SODIUM,NA 135 mmol/L (136-145)
[2020-02-03] MEDS ORDERED: traMADol 50 MG Tab PO ONE (18:55)
[2020-02-03] MEDS ORDERED: Albuterol/Ipratropium 3.0-0.5 MG/3 ML Neb Soln NEB PRN (18:56)
[2020-02-03] MEDS ORDERED: Acetaminophen 325 MG Tab PO PRN (18:56)
[2020-02-03] MEDS ORDERED: Lactated Ringers 1,000 ML IV SCH (19:00)
[2020-02-03] MEDS ORDERED: hydrALAZINE 20 MG/ML SDV IVPUSH PRN (19:04)
--- NOTE | 2020-02-03 19:17 | PCM.HP.2 ---
H&P History of Present Illness - General Date of Service: 02/03/20 Admit Problem/Dx: Admission Diagnosis/Problem Admission Diagnosis/Problem Fall - History of Present Illness Initial Comments - Free Text/Narative: Patient is a 74-year-old female with PMH of HTN, GERD, anxiety, depression, frequent falls for past few years being followed by neurology, who presents to the emergency room after having fallen. She states she was walking using her cane when she suddenly just fell to the ground hitting her left ribs, left hand and her head. She denies any loss of consciousness, chest pain, syncope, pre-syncope, palpitations, numbness, tingling, focal weakness. States she has been falling more often lately. Patient denies any fever, chills, headache, change in vision, Denies any chest pain, back pain, shortness of breath or cough. Denies any abdominal pain, nausea, vomiting, diarrhea, constipation or dysuria. Has not noted any blood in urine or stool. Patient has been eating and drinking appropriately. Patient states she has been worked up for Myasthenia Gravis in past which was negative, her PCP thinks she might have early signs of parkinsonian disease but its all tentative, nothing has been confirm yet. She follows with Dr Garrido on Outpatient basis. In the ER patient was found to have fractured left 4 and 5th rib. Patient was admitted for pain control for the fracture and ambulatory dysfunction. left ribs Pain Score (Numeric/FACES): 4 - Related Data Allergies/Adverse Reactions: Allergies Allergy/AdvReac Type Severity Reaction Status Date / Time amoxicillin [From Augmentin] Allergy Rash Verified 02/03/20 20:23 clavulanic acid Allergy Rash Verified 02/03/20 20:23 [From Augmentin] escitalopram Allergy Blurred Verified 02/03/20 20:23 Vision mirtazapine Allergy Rash Verified 02/03/20 20:24 tape Allergy Rash Uncoded 02/03/20 20:23 Home Medications: Home Meds Metoprolol Succinate [Toprol XL 50mg] 50 mg PO DAILY 12/12/17 [History] Sertraline [Zoloft] 75 mg PO DAILY 02/03/20 [History] Past Medical History HEENT History: Reports: Other (See Below) Other HEENT History: wears glasses, top denture bottom partial Cardiovascular History: Reports: Hypertension, Other (See Below) Other Cardiovascular History: was told she had a murmur in the past Respiratory History: Reports: None Gastrointestinal History: Reports: Colon Polyp, GERD Genitourinary History: Reports: None [employer] History: Reports: Musculoskeletal History: Reports: None Neurological History: Reports: Other (See Below) Other Neuro History: recent diagnosis of myasthenia gravis Psychiatric History: Reports: Anxiety, Depression Endocrine/Metabolic History: Reports: Other (See Below) Hematologic History: Reports: Blood Transfusion(s) Other Hematologic History: blood transfusion as an Immunologic History: Reports: Other (See Below) Oncologic (Cancer) History: Reports: Breast Dermatologic History: Reports: None - Infectious Disease History Infectious Disease History: Reports: Chicken Pox, Measles, Mumps - Past Surgical History Head Surgeries/Procedures: Reports: None GI Surgical History: Reports: Appendectomy, Cholecystectomy, Colonoscopy, Hernia, Abdominal Female Surgical History: Reports: Breast Biopsy, D&C, Hysterectomy, Other (See Below) Other Female Surgeries/Procedures: bladder surgery Endocrine Surgical History: Reports: Other (See Below) Other Endocrine Surgeries/Procedures: lymphnode removal, right axillary Oncologic Surgical History: Reports: Biopsy of Breast, Lumpectomy Social & Family History - Family History Family Medical History: Noncontributory - Tobacco Use Smoking Status *Q: Never Smoker - Recreational Drug Use Recreational Drug Use: No H&P Review of Systems - Review of Systems: Review Of Systems: See Below General: Denies: Fever, Chills, Malaise HEENT: Denies: Dysphasia, Ear Pain Pulmonary: Denies: Shortness of Breath, Wheezing, Pleuritic Chest Pain Cardiovascular: Denies: Chest Pain, Palpitations, Dyspnea on Exertion Gastrointestinal: Denies: Abdominal Pain, Anorexia, Black Stool Genitourinary: Denies: Dysuria, Frequency, Burning Musculoskeletal: Denies: Neck Pain, Shoulder Pain Skin: Denies: Cyanosis, Jaundice, Mottled Psychiatric: Denies: Confusion, Depression, Mood Lability Neurological: Denies: Confusion, Dizziness, Headache Hematologic/Lymphatic: Denies: Anemia, Easy Bleeding, Easy Bruising Immunologic: Denies: Anaphylaxis, Food Allergy, Environmental Allergy Exam - Exam Exam: See Below - Vital Signs Vital Signs: Last Vital Signs Temp 35.9 C L 02/03/20 17:05 Pulse 80 02/03/20 17:05 Resp 18 02/03/20 17:05 BP 183/73 H 02/03/20 17:05 Pulse Ox 93 L 02/03/20 17:05 Weight: 67.585 kg - Exam General: Alert, Oriented, Cooperative Neck: Supple, Trachea Midline Lungs: Clear to Auscultation, Normal Respiratory Effort Cardiovascular: Regular Rate, Regular Rhythm, Normal S1, Normal S2 Back Exam: Normal Inspection. No: CVA Tenderness (L), CVA Tenderness (R), Vertebral Tenderness Extremities: Normal Inspection, Normal Range of Motion, Non-Tender Neuro Extensive - Mental Status: Alert, Oriented x3, Normal Mood/Affect, Normal Cognition, Memory Intact. No: Disorientation to Person, Disorientation to Place, Inattentive, Memory Loss-Remote Events Neuro Extensive - Motor, Sensory, Reflexes: CN II-XII Intact, Normal Reflexes. No: Abnormal Reflexes, Hemeplagia (R), Hemeplagia (L), Pronator Drift (R), Pronator Drift (L) Physical Exam Comments:: left chest wall tenderness - Patient Data Lab Results Last 24 hrs: Laboratory Results - last 24 hr 02/03/20 02/03/20 Range/Units 17:42 17:42 WBC 11.10 H (4.0-11.0) K/uL RBC 4.96 (4.30-5.90) M/uL Hgb 14.4 (12.0-16.0) g/dL Hct 44.9 (36.0-46.0) % MCV 90.5 (80.0-98.0) fL MCH 29.0 (27.0-32.0) pg MCHC 32.1 (31.0-37.0) g/dL RDW Std Deviation 45.3 (28.0-62.0) fl RDW Coeff of Bo 14 (11.0-15.0) % Plt Count 273 (150-400) K/uL MPV 9.70 (7.40-12.00) fL Neut % (Auto) 46.4 L (48.0-80.0) % Lymph % (Auto) 44.1 H (16.0-40.0) % [place] % (Auto) 6.8 (0.0-15.0) % Eos % (Auto) 2.2 (0.0-7.0) % Baso % (Auto) 0.5 (0.0-1.5) % Neut # (Auto) 5.2 (1.4-5.7) K/uL Lymph # (Auto) 4.9 H (0.6-2.4) K/uL [place] # (Auto) 0.8 (0.0-0.8) K/uL Eos # (Auto) 0.2 (0.0-0.7) K/uL Baso # (Auto) 0.1 (0.0-0.1) K/uL Nucleated RBC % 0.0 /100WBC Nucleated RBCs # 0 K/uL Sodium 135 L (136-145) mmol/L Potassium 4.0 (3.5-5.1) mmol/L Chloride 101 (98-107) mmol/L Carbon Dioxide 26.7 (21.0-32.0) mmol/L BUN 21 H (7.0-18.0) mg/dL Creatinine 0.8 (0.6-1.0) mg/dL Est Cr Clr Drug Dosing 45.14 mL/min Estimated GFR (MDRD) > 60.0 ml/min Glucose 118 H (74-106) mg/dL Calcium 8.2 L (8.5-10.1) mg/dL Total Bilirubin 0.3 (0.2-1.0) mg/dL AST 17 (15-37) IU/L ALT 18 (14-63) IU/L Alkaline Phosphatase 82 (46-116) U/L Troponin I < 0.050 (0.000-0.056) ng/mL Total Protein 7.4 (6.4-8.2) g/dL Albumin 3.7 (3.4-5.0) g/dL Globulin 3.7 (2.6-4.0) g/dL Albumin/Globulin Ratio 1.0 (0.9-1.6) Result Diagrams: 02/03/20 17:42 02/03/20 17:42 Sepsis Event Note - Evaluation Sepsis Screening Result: No Definite Risk - Focused Exam Vital Signs: Vital Signs Temp Pulse Resp BP Pulse Ox 02/03/20 17:05 35.9 C L 80 18 183/73 H 93 L Date Exam was Performed: 02/03/20 Time Exam was Performed: 23:26 - Problem List (1) Fall SNOMED Code(s): 5325511, 713771369 ICD Code: W19.XXXA - UNSPECIFIED FALL, INITIAL ENCOUNTER Status: Acute Current Visit: Yes Qualifiers: Encounter type: initial encounter Qualified Code(s): W19.XXXA - Unspecified fall, initial encounter (2) Ribs, multiple fractures SNOMED Code(s): 1753025 ICD Code: S22.49XA - MULTIPLE FRACTURES OF RIBS, UNSP SIDE, INIT FOR CLOS FX Status: Acute Current Visit: Yes Qualifiers: Encounter type: initial encounter Fracture type: closed Laterality: left Qualified Code(s): S22.42XA - Multiple fractures of ribs, left side, initial encounter for closed fracture (3) Anxiety SNOMED Code(s): 38494709 ICD Code: F41.9 - ANXIETY DISORDER, UNSPECIFIED Status: Acute Current Visit: No (4) Insomnia SNOMED Code(s): 549534116 ICD Code: G47.00 - INSOMNIA, UNSPECIFIED Status: Acute Current Visit: No Qualifiers: Insomnia type: unspecified Qualified Code(s): G47.00 - Insomnia, unspecified (5) HTN (hypertension) SNOMED Code(s): 05700046 ICD Code: I10 - ESSENTIAL (PRIMARY) HYPERTENSION Status: Acute Current Visit: Yes Problem List Initiated/Reviewed/Updated: Yes Orders Last 24hrs: Active Orders 24 hr Category Date Time Status Admission Status [Patient Status] [ADT] Stat ADT 02/03/20 18:22 Active Ambulate [RC] ASDIRECTED Care 02/03/20 18:56 Active Antiembolic Devices [RC] PER UNIT ROUTINE Care 02/03/20 19:01 Active EKG Documentation Completion [RC] STAT Care 02/03/20 17:06 Active Orthostatic Vital Signs [RC] ASDIRECTED Care 02/03/20 17:06 Active Oxygen Therapy [RC] PRN Care 02/03/20 18:56 Active Pulse Oximetry [RC] PRN Care 02/03/20 19:00 Active RT Aerosol Therapy [RC] ASDIRECTED Care 02/03/20 19:03 Active VTE/DVT Education [RC] PER UNIT ROUTINE Care 02/03/20 18:56 Active Vital Signs [RC] Q4H Care 02/03/20 18:56 Active PT Evaluation and Treatment [CONS] Routine Cons 02/03/20 18:56 Active Heart Healthy Diet [DIET] Diet 02/03/20 Dinner Active CV Carotid Duplex Comp [US] Routine Exams 02/03/20 19:13 Ordered Echo Comp wo Cont [US] Routine Exams 02/03/20 19:12 Ordered TROPONIN I [CHEM] Routine Lab 02/03/20 21:00 Ordered UA W/MICROSCOPIC [URIN] Stat Lab 02/03/20 19:09 Ordered Acetaminophen [Tylenol] Med 02/03/20 18:56 Active 650 mg PO Q4H PRN Albuterol/Ipratropium [DuoNeb 3.0-0.5 MG/3 ML] Med 02/03/20 18:56 Active 3 ml NEB Q4HRRT PRN Metoprolol Succinate [Toprol XL] Med 02/04/20 09:00 Active 50 mg PO DAILY Sertraline [Zoloft] Med 02/04/20 09:00 Active 70 mg PO DAILY hydrALAZINE [Apresoline] Med 02/03/20 19:04 Active 20 mg IVPUSH Q4H PRN Sequential Compression Device [OM.PC] Per Unit Routine Oth 02/03/20 19:00 Ordered Medication Orders Acetaminophen (Tylenol) 650 mg PO Q4H PRN PRN Reason: Pain (Mild 1-3)/fever Albuterol/Ipratropium (Duoneb 3.0-0.5 Mg/3 Ml) 3 ml NEB Q4HRRT PRN PRN Reason: Shortness Of Breath/wheezing Hydralazine HCl (Apresoline) 20 mg IVPUSH Q4H PRN PRN Reason: Hypertension Metoprolol Succinate (Toprol Xl) 50 mg PO DAILY [facility] Sertraline HCl (Zoloft) 70 mg PO DAILY [facility] Assessment/Plan Comment:: 74 y/o F admitted for ambulatory dysfunction, multiple falls, fractured ribs Last MRI in 2019 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
[2020-02-03] MEDS ORDERED: Morphine 4 MG/ML Syringe IVPUSH PRN (19:22)
[2020-02-04] MEDS: Morphine 2 MG/ML Syringe IVPUSH PRN ×2 (05:03→09:36)
[2020-02-04 06:23] LABS: BLOOD UREA NITROGEN,BUN 18 mg/dL (7.0-18.0); CARBON DIOXIDE,CO2 28.6 mmol/L (21.0-32.0); CHLORIDE,CL 102 mmol/L (98-107); GLUCOSE RANDOM 107 mg/dL (74-106); SODIUM,NA 139 mmol/L (136-145)
[2020-02-04] MEDS ORDERED: Sertraline 50 MG Tab PO SCH (09:00)
[2020-02-04] MEDS ORDERED: Metoprolol Succinate 50 MG Tab.ER PO SCH (09:00)
[2020-02-04] MEDS ORDERED: oxyCODONE 5 MG Tab PO PRN (10:44)
[2020-02-04] MEDS ORDERED: Ketorolac 15 MG/ML SDV IVPUSH PRN (10:45)
[2020-02-04] MEDS ORDERED: cefTRIAXone 1 GM in Premix Bag 1 BAG IV ONE (10:47)
--- NOTE | 2020-02-04 11:45 | PCM.PN ---
- General Info Date of Service: 02/04/20 - Patient Data Vitals - Most Recent: Last Vital Signs Temp 98.2 F 02/04/20 08:00 Pulse 77 02/04/20 09:34 Resp 18 02/04/20 08:00 BP 145/64 H 02/04/20 09:34 Pulse Ox 95 02/04/20 08:00 Weight - Most Recent: 67.585 kg I&O - Last 24 Hours: Intake & Output 02/03/20 02/04/20 02/04/20 22:59 06:59 14:59 Intake Total 250 Output Total 1000 Balance -750 Lab Results Last 24 Hours: Laboratory Results - last 24 hr 02/03/20 02/03/20 02/03/20 Range/Units 17:42 17:42 21:02 WBC 11.10 H (4.0-11.0) K/uL RBC 4.96 (4.30-5.90) M/uL Hgb 14.4 (12.0-16.0) g/dL Hct 44.9 (36.0-46.0) % MCV 90.5 (80.0-98.0) fL MCH 29.0 (27.0-32.0) pg MCHC 32.1 (31.0-37.0) g/dL RDW Std Deviation 45.3 (28.0-62.0) fl RDW Coeff of Bo 14 (11.0-15.0) % Plt Count 273 (150-400) K/uL MPV 9.70 (7.40-12.00) fL Neut % (Auto) 46.4 L (48.0-80.0) % Lymph % (Auto) 44.1 H (16.0-40.0) % [place] % (Auto) 6.8 (0.0-15.0) % Eos % (Auto) 2.2 (0.0-7.0) % Baso % (Auto) 0.5 (0.0-1.5) % Neut # (Auto) 5.2 (1.4-5.7) K/uL Lymph # (Auto) 4.9 H (0.6-2.4) K/uL [place] # (Auto) 0.8 (0.0-0.8) K/uL Eos # (Auto) 0.2 (0.0-0.7) K/uL Baso # (Auto) 0.1 (0.0-0.1) K/uL Nucleated RBC % 0.0 /100WBC Nucleated RBCs # 0 K/uL Sodium 135 L (136-145) mmol/L Potassium 4.0 (3.5-5.1) mmol/L Chloride 101 (98-107) mmol/L Carbon Dioxide 26.7 (21.0-32.0) mmol/L BUN 21 H (7.0-18.0) mg/dL Creatinine 0.8 (0.6-1.0) mg/dL Est Cr Clr Drug Dosing 45.14 mL/min Estimated GFR (MDRD) > 60.0 ml/min Glucose 118 H (74-106) mg/dL Calcium 8.2 L (8.5-10.1) mg/dL Magnesium (1.8-2.4) mg/dL Total Bilirubin 0.3 (0.2-1.0) mg/dL AST 17 (15-37) IU/L ALT 18 (14-63) IU/L Alkaline Phosphatase 82 (46-116) U/L Troponin I < 0.050 <0.050 (0.000-0.056) ng/mL Total Protein 7.4 (6.4-8.2) g/dL Albumin 3.7 (3.4-5.0) g/dL Globulin 3.7 (2.6-4.0) g/dL Albumin/Globulin Ratio 1.0 (0.9-1.6) Urine Color Urine Appearance Urine pH (5.0-8.0) Ur Specific [place] (1.001-1.035) Urine Protein (NEGATIVE) mg/dL Urine Glucose (UA) (NEGATIVE) mg/dL Urine Ketones (NEGATIVE) mg/dL Urine Occult Blood (NEGATIVE) Urine Nitrite (NEGATIVE) Urine Bilirubin (NEGATIVE) Urine Urobilinogen (<2.0) EU/dL Ur Leukocyte Esterase (NEGATIVE) Urine RBC (0-2/HPF) Urine WBC (0-5/HPF) Ur Epithelial Cells (NONE-FEW) Urine Bacteria (NEGATIVE) 02/03/20 02/03/20 02/04/20 Range/Units 21:02 23:00 05:55 WBC 10.47 (4.0-11.0) K/uL RBC 4.72 (4.30-5.90) M/uL Hgb 13.6 (12.0-16.0) g/dL Hct 42.2 (36.0-46.0) % MCV 89.4 (80.0-98.0) fL MCH 28.8 (27.0-32.0) pg MCHC 32.2 (31.0-37.0) g/dL RDW Std Deviation 44.5 (28.0-62.0) fl RDW Coeff of Bo 14 (11.0-15.0) % Plt Count 237 (150-400) K/uL MPV 10.10 (7.40-12.00) fL Neut % (Auto) 58.2 (48.0-80.0) % Lymph % (Auto) 30.9 (16.0-40.0) % [place] % (Auto) 9.5 (0.0-15.0) % Eos % (Auto) 0.9 (0.0-7.0) % Baso % (Auto) 0.5 (0.0-1.5) % Neut # (Auto) 6.1 H (1.4-5.7) K/uL Lymph # (Auto) 3.2 H (0.6-2.4) K/uL [place] # (Auto) 1.0 H (0.0-0.8) K/uL Eos # (Auto) 0.1 (0.0-0.7) K/uL Baso # (Auto) 0.1 (0.0-0.1) K/uL Nucleated RBC % 0.0 /100WBC Nucleated RBCs # 0 K/uL Sodium (136-145) mmol/L Potassium (3.5-5.1) mmol/L Chloride (98-107) mmol/L Carbon Dioxide (21.0-32.0) mmol/L BUN (7.0-18.0) mg/dL Creatinine (0.6-1.0) mg/dL Est Cr Clr Drug Dosing mL/min Estimated GFR (MDRD) ml/min Glucose (74-106) mg/dL Calcium (8.5-10.1) mg/dL Magnesium 2.1 (1.8-2.4) mg/dL Total Bilirubin (0.2-1.0) mg/dL AST (15-37) IU/L ALT (14-63) IU/L Alkaline Phosphatase (46-116) U/L Troponin I (0.000-0.056) ng/mL Total Protein (6.4-8.2) g/dL Albumin (3.4-5.0) g/dL Globulin (2.6-4.0) g/dL Albumin/Globulin Ratio (0.9-1.6) Urine Color YELLOW Urine Appearance CLEAR Urine pH 5.5 (5.0-8.0) Ur Specific [place] 1.015 (1.001-1.035) Urine Protein NEGATIVE (NEGATIVE) mg/dL Urine Glucose (UA) NEGATIVE (NEGATIVE) mg/dL Urine Ketones NEGATIVE (NEGATIVE) mg/dL Urine Occult Blood SMALL H (NEGATIVE) Urine Nitrite NEGATIVE (NEGATIVE) Urine Bilirubin NEGATIVE (NEGATIVE) Urine Urobilinogen 0.2 (<2.0) EU/dL Ur Leukocyte Esterase TRACE H (NEGATIVE) Urine RBC 0-2 (0-2/HPF) Urine WBC 1-3 (0-5/HPF) Ur Epithelial Cells RARE (NONE-FEW) Urine Bacteria RARE (NEGATIVE) 02/04/20 Range/Units 05:55 WBC (4.0-11.0) K/uL RBC (4.30-5.90) M/uL Hgb (12.0-16.0) g/dL Hct (36.0-46.0) % MCV (80.0-98.0) fL MCH (27.0-32.0) pg MCHC (31.0-37.0) g/dL RDW Std Deviation (28.0-62.0) fl RDW Coeff of Bo (11.0-15.0) % Plt Count (150-400) K/uL MPV (7.40-12.00) fL Neut % (Auto) (48.0-80.0) % Lymph % (Auto) (16.0-40.0) % [place] % (Auto) (0.0-15.0) % Eos % (Auto) (0.0-7.0) % Baso % (Auto) (0.0-1.5) % Neut # (Auto) (1.4-5.7) K/uL Lymph # (Auto) (0.6-2.4) K/uL [place] # (Auto) (0.0-0.8) K/uL Eos # (Auto) (0.0-0.7) K/uL Baso # (Auto) (0.0-0.1) K/uL Nucleated RBC % /100WBC Nucleated RBCs # K/uL Sodium 139 (136-145) mmol/L Potassium 4.0 (3.5-5.1) mmol/L Chloride 102 (98-107) mmol/L Carbon Dioxide 28.6 (21.0-32.0) mmol/L BUN 18 (7.0-18.0) mg/dL Creatinine 0.8 (0.6-1.0) mg/dL Est Cr Clr Drug Dosing 46.23 mL/min Estimated GFR (MDRD) > 60.0 ml/min Glucose 107 H (74-106) mg/dL Calcium 8.5 (8.5-10.1) mg/dL Magnesium (1.8-2.4) mg/dL Total Bilirubin (0.2-1.0) mg/dL AST (15-37) IU/L ALT (14-63) IU/L Alkaline Phosphatase (46-116) U/L Troponin I (0.000-0.056) ng/mL Total Protein (6.4-8.2) g/dL Albumin (3.4-5.0) g/dL Globulin (2.6-4.0) g/dL Albumin/Globulin Ratio (0.9-1.6) Urine Color Urine Appearance Urine pH (5.0-8.0) Ur Specific [place] (1.001-1.035) Urine Protein (NEGATIVE) mg/dL Urine Glucose (UA) (NEGATIVE) mg/dL Urine Ketones (NEGATIVE) mg/dL Urine Occult Blood (NEGATIVE) Urine Nitrite (NEGATIVE) Urine Bilirubin (NEGATIVE) Urine Urobilinogen (<2.0) EU/dL Ur Leukocyte Esterase (NEGATIVE) Urine RBC (0-2/HPF) Urine WBC (0-5/HPF) Ur Epithelial Cells (NONE-FEW) Urine Bacteria (NEGATIVE) Med Orders - Current: Current Medications Acetaminophen (Tylenol) 650 mg PO Q4H PRN PRN Reason: Pain (Mild 1-3)/fever Albuterol/Ipratropium (Duoneb 3.0-0.5 Mg/3 Ml) 3 ml NEB Q4HRRT PRN PRN Reason: Shortness Of Breath/wheezing Hydralazine HCl (Apresoline) 20 mg IVPUSH Q4H PRN PRN Reason: Hypertension Ketorolac Tromethamine (Toradol) 15 mg IVPUSH Q6H PRN PRN Reason: Pain Stop: 02/09/20 10:45 Metoprolol Succinate (Toprol Xl) 50 mg PO DAILY [facility] Last Admin: 02/04/20 09:34 Dose: 50 mg Documented by: Oxycodone HCl (Oxycodone) 5 mg PO Q8H PRN PRN Reason: Pain Sertraline HCl (Zoloft) 70 mg PO DAILY [facility] Last Admin: 02/04/20 09:35 Dose: 70 mg Documented by: Discontinued Medications Lactated Ringer's (Ringers, Lactated) 1,000 mls @ 125 mls/hr IV ASDIRECTED [facility] Ceftriaxone Sodium/Dextrose 1 (gm/ Premix) 50 mls @ 100 mls/hr IV ONETIME ONE Stop: 02/04/20 11:16 Last Admin: 02/04/20 11:31 Dose: 100 mls/hr Documented by: Morphine Sulfate (Morphine) 1 mg IVPUSH Q4H PRN PRN Reason: Pain Last Admin: 02/04/20 00:23 Dose: 1 mg Documented by: Morphine Sulfate (Morphine) 1 mg IVPUSH Q4H PRN PRN Reason: Pain Last Admin: 02/04/20 09:36 Dose: 1 mg Documented by: Tramadol HCl (Ultram) 50 mg PO ONETIME ONE Stop: 02/03/20 18:56 Last Admin: 02/03/20 19:38 Dose: 50 mg Documented by: - Exam Quality Assessment: Supplemental Oxygen General: Alert, Oriented Lungs: Clear to Auscultation, Normal Respiratory Effort Cardiovascular: Regular Rate, Regular Rhythm GI/Abdominal Exam: Soft Sepsis Event Note - Evaluation Sepsis Screening Result: No Definite Risk - Focused Exam Vital Signs: Vital Signs Temp Pulse Pulse Resp BP BP Pulse Ox 02/04/20 09:34 77 145/64 H 02/04/20 08:00 98.2 F 77 18 145/64 H 95 02/04/20 04:00 98.7 F 79 19 131/62 95 02/04/20 00:41 95 02/04/20 00:00 98.8 F 85 18 123/65 90 L Date Exam was Performed: 02/04/20 Time Exam was Performed: 11:42 - Problem List Review Problem List Initiated/Reviewed/Updated: Yes - My Orders Last 24 Hours: My Active Orders 02/03/20 23:00 CULTURE URINE [RM] Stat 02/04/20 10:44 oxyCODONE 5 mg PO Q8H PRN 02/04/20 10:45 Ketorolac [Toradol] 15 mg IVPUSH Q6H PRN - Plan Plan:: 74 y/o F admitted for ambulatory dysfunction, multiple falls, fractured ribs Concern for UTI: ordered culture; 1 gram Rocephin; adjust per cultures 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
--- NOTE | 2020-02-04 15:00 | US ---
Carotid ultrasound: Duplex and color flow imaging was obtained of the carotid arteries. Comparison: No prior carotid imaging Plaque: Mild amount of scattered plaque is seen showing irregular surface margins. Right side: CCA has a peak systolic velocity of 0.83 m/sec. ICA has a peak systolic velocity of 0.76 m/sec and peak end-diastolic velocity of 0.24 m/sec. ECA has a peak systolic velocity of 0.78 m/sec. ICA/CCA ratio is 1.21. Vertebral artery has a peak systolic velocity of 0.43. Left side: CCA has a peak systolic velocity of 0.95 m/sec. ICA has a peak systolic velocity of 0.94 m/sec and peak end-diastolic velocity of 0.18 m/sec. ECA has a peak systolic velocity of 1.32 m/sec. ICA/CCA ratio is 0.99. Vertebral artery has a peak systolic velocity of 0.16. Impression: 1. Mild amount of scattered plaque showing irregular surface margins. 2. Velocity measurements within both internal carotid arteries correspond to stenosis in the range of 1-49%. Diagnostic code #2 Study was dictated in [facility]
--- NOTE | 2020-02-04 17:09 | PCM.DCSUM1 ---
Discharge Summary - Hospital Course Free Text/Narrative:: Patient is a 74-year-old female with a significant past medical history of hypertension, GERD, anxiety, depression and history of frequent falls followed by neurology; presented to the ED after having fallen. Patient at home had fallen hitting the ground: Hitting her left ribs, her left hand, and her head. Patient however denied any loss of consciousness, chest pain, syncope, presyncope, palpitations, numbness tingling focal weakness. Mentions she has been falling more all often lately. ER course: Chest x-ray significant for fractured left fourth and fifth rib. Patient was admitted for pain control and ambulatory dysfunction. Hospital course: Vitals stable. EKG stable. Head CT negative for acute intracranial bleed. Labs CBC and CMP unremarkable. UA positive however for trace esterase and trace blood. Urine sent for cultures. 1 dose of ceftriaxone given in the hospital. Patient will be discharged on ciprofloxacin 250 twice daily x5 days. Day of discharge patient worked with physical therapy; confident with patient's ambulation with walker. Advised patient to use four-point walker at home and to continue antibiotics for UTI. Imaging: Head CT negative Carotid ultrasound showed atherosclerotic plaque; however no major stenosis; oth erwise normal. Outpatient MRI prescription given. Echocardiogram could not be performed in inpatient setting; prescription provided to patient. Discussed benefits of incentive spirometry to help avoid pneumonia. Patient requesting discharge; patient was stable at discharge. Home medications: We will add on oxycodone for pain control, ciprofloxacin for UTI, albuterol for as needed wheezing, encourage incentive spirometry Advised to follow-up with PCP and outpatient surgery secondary to trauma code for patient. - Discharge Data Discharge Date: 02/04/20 Discharge Disposition: Home, Self-Care 01 Condition: Good - Referral to Home Health Primary Care Physician: Rico Colmenares MD - Patient Summary/Data Consults: Consultations 02/03/20 18:56 PT Evaluation and Treatment [CONS] Routine - Patient Instructions Diet: Heart Healthy Diet Notify Provider of: Fever, Increased Pain Other/Special Instructions: PLEASE USE A 4-POINT WALKER AT ALL TIMES TO AVOID FALLING. PLEASE USE YOUR INCENTIVE SPIROMETRY EVERY HOUR TO HELP KEEP YOUR LUNGS STRONG AND PREVENT PNEUMONIA. FOLLOW UP WITH YOUR PCP. AN OUTPATIENT ECHOCARDIOGRAM PRESCRIPTION WILL BE GIVEN TO YOU AT DISCHARGE; FOLLOW UP TO MAKE AN APPOINTMENT - Discharge Plan Prescriptions/Med Rec: Ciprofloxacin HCl [Cipro] 250 mg PO BID 5 Days #10 tablet oxyCODONE 5 mg PO BID PRN 5 Days #10 tablet PRN Reason: Pain Albuterol Sulfate [Proair Hfa] 8.5 gm IH Q8HR PRN 10 Days #1 hfa.aer.ad PRN Reason: Wheezing Home Medications: Home Meds Metoprolol Succinate [Toprol XL 50mg] 50 mg PO DAILY 12/12/17 [History] Sertraline [Zoloft] 75 mg PO DAILY 02/03/20 [History] Acetaminophen [Tylenol] 650 mg PO Q4H PRN tablet 02/04/20 [Rx] Albuterol Sulfate [Proair Hfa] 8.5 gm IH Q8HR PRN 10 Days #1 hfa.aer.ad 02/04/20 [Rx] Ciprofloxacin HCl [Cipro] 250 mg PO BID 5 Days #10 tablet 02/04/20 [Rx] oxyCODONE 5 mg PO BID PRN 5 Days #10 tablet 02/04/20 [Rx] Referrals: Rico Colmenares MD [Primary Care Provider] - ([facility] will call you to set up an appointment for your outpatient echocardiogram. ) - Discharge Summary/Plan Comment DC Time >30 min.: No - Patient Data Vitals - Most Recent: Last Vital Signs Temp 98.4 F 02/04/20 12:00 Pulse 72 02/04/20 12:00 Resp 18 02/04/20 12:00 BP 118/48 L 02/04/20 12:00 Pulse Ox 94 L 02/04/20 12:00 Weight - Most Recent: 67.585 kg I&O - Last 24 hours: Intake & Output 02/04/20 02/04/20 02/04/20 06:59 14:59 22:59 Intake Total 250 Output Total 1000 Balance -750 Lab Results - Last 24 hrs: Laboratory Results - last 24 hr 02/03/20 02/03/20 02/03/20 Range/Units 17:42 17:42 21:02 WBC 11.10 H (4.0-11.0) K/uL RBC 4.96 (4.30-5.90) M/uL Hgb 14.4 (12.0-16.0) g/dL Hct 44.9 (36.0-46.0) % MCV 90.5 (80.0-98.0) fL MCH 29.0 (27.0-32.0) pg MCHC 32.1 (31.0-37.0) g/dL RDW Std Deviation 45.3 (28.0-62.0) fl RDW Coeff of Bo 14 (11.0-15.0) % Plt Count 273 (150-400) K/uL MPV 9.70 (7.40-12.00) fL Neut % (Auto) 46.4 L (48.0-80.0) % Lymph % (Auto) 44.1 H (16.0-40.0) % Day % (Auto) 6.8 (0.0-15.0) % Eos % (Auto) 2.2 (0.0-7.0) % Baso % (Auto) 0.5 (0.0-1.5) % Neut # (Auto) 5.2 (1.4-5.7) K/uL Lymph # (Auto) 4.9 H (0.6-2.4) K/uL Day # (Auto) 0.8 (0.0-0.8) K/uL Eos # (Auto) 0.2 (0.0-0.7) K/uL Baso # (Auto) 0.1 (0.0-0.1) K/uL Nucleated RBC % 0.0 /100WBC Nucleated RBCs # 0 K/uL Sodium 135 L (136-145) mmol/L Potassium 4.0 (3.5-5.1) mmol/L Chloride 101 (98-107) mmol/L Carbon Dioxide 26.7 (21.0-32.0) mmol/L BUN 21 H (7.0-18.0) mg/dL Creatinine 0.8 (0.6-1.0) mg/dL Est Cr Clr Drug Dosing 45.14 mL/min Estimated GFR (MDRD) > 60.0 ml/min Glucose 118 H (74-106) mg/dL Calcium 8.2 L (8.5-10.1) mg/dL Magnesium (1.8-2.4) mg/dL Total Bilirubin 0.3 (0.2-1.0) mg/dL AST 17 (15-37) IU/L ALT 18 (14-63) IU/L Alkaline Phosphatase 82 (46-116) U/L Troponin I < 0.050 <0.050 (0.000-0.056) ng/mL Total Protein 7.4 (6.4-8.2) g/dL Albumin 3.7 (3.4-5.0) g/dL Globulin 3.7 (2.6-4.0) g/dL Albumin/Globulin Ratio 1.0 (0.9-1.6) Urine Color Urine Appearance Urine pH (5.0-8.0) Ur Specific [place] (1.001-1.035) Urine Protein (NEGATIVE) mg/dL Urine Glucose (UA) (NEGATIVE) mg/dL Urine Ketones (NEGATIVE) mg/dL Urine Occult Blood (NEGATIVE) Urine Nitrite (NEGATIVE) Urine Bilirubin (NEGATIVE) Urine Urobilinogen (<2.0) EU/dL Ur Leukocyte Esterase (NEGATIVE) Urine RBC (0-2/HPF) Urine WBC (0-5/HPF) Ur Epithelial Cells (NONE-FEW) Urine Bacteria (NEGATIVE) 02/03/20 02/03/20 02/04/20 Range/Units 21:02 23:00 05:55 WBC 10.47 (4.0-11.0) K/uL RBC 4.72 (4.30-5.90) M/uL Hgb 13.6 (12.0-16.0) g/dL Hct 42.2 (36.0-46.0) % MCV 89.4 (80.0-98.0) fL MCH 28.8 (27.0-32.0) pg MCHC 32.2 (31.0-37.0) g/dL RDW Std Deviation 44.5 (28.0-62.0) fl RDW Coeff of Bo 14 (11.0-15.0) % Plt Count 237 (150-400) K/uL MPV 10.10 (7.40-12.00) fL Neut % (Auto) 58.2 (48.0-80.0) % Lymph % (Auto) 30.9 (16.0-40.0) % Day % (Auto) 9.5 (0.0-15.0) % Eos % (Auto) 0.9 (0.0-7.0) % Baso % (Auto) 0.5 (0.0-1.5) % Neut # (Auto) 6.1 H (1.4-5.7) K/uL Lymph # (Auto) 3.2 H (0.6-2.4) K/uL Day # (Auto) 1.0 H (0.0-0.8) K/uL Eos # (Auto) 0.1 (0.0-0.7) K/uL Baso # (Auto) 0.1 (0.0-0.1) K/uL Nucleated RBC % 0.0 /100WBC Nucleated RBCs # 0 K/uL Sodium (136-145) mmol/L Potassium (3.5-5.1) mmol/L Chloride (98-107) mmol/L Carbon Dioxide (21.0-32.0) mmol/L BUN (7.0-18.0) mg/dL Creatinine (0.6-1.0) mg/dL Est Cr Clr Drug Dosing mL/min Estimated GFR (MDRD) ml/min Glucose (74-106) mg/dL Calcium (8.5-10.1) mg/dL Magnesium 2.1 (1.8-2.4) mg/dL Total Bilirubin (0.2-1.0) mg/dL AST (15-37) IU/L ALT (14-63) IU/L Alkaline Phosphatase (46-116) U/L Troponin I (0.000-0.056) ng/mL Total Protein (6.4-8.2) g/dL Albumin (3.4-5.0) g/dL Globulin (2.6-4.0) g/dL Albumin/Globulin Ratio (0.9-1.6) Urine Color YELLOW Urine Appearance CLEAR Urine pH 5.5 (5.0-8.0) Ur Specific [place] 1.015 (1.001-1.035) Urine Protein NEGATIVE (NEGATIVE) mg/dL Urine Glucose (UA) NEGATIVE (NEGATIVE) mg/dL Urine Ketones NEGATIVE (NEGATIVE) mg/dL Urine Occult Blood SMALL H (NEGATIVE) Urine Nitrite NEGATIVE (NEGATIVE) Urine Bilirubin NEGATIVE (NEGATIVE) Urine Urobilinogen 0.2 (<2.0) EU/dL Ur Leukocyte Esterase TRACE H (NEGATIVE) Urine RBC 0-2 (0-2/HPF) Urine WBC 1-3 (0-5/HPF) Ur Epithelial Cells RARE (NONE-FEW) Urine Bacteria RARE (NEGATIVE) 02/04/20 Range/Units 05:55 WBC (4.0-11.0) K/uL RBC (4.30-5.90) M/uL Hgb (12.0-16.0) g/dL Hct (36.0-46.0) % MCV (80.0-98.0) fL MCH (27.0-32.0) pg MCHC (31.0-37.0) g/dL RDW Std Deviation (28.0-62.0) fl RDW Coeff of Bo (11.0-15.0) % Plt Count (150-400) K/uL MPV (7.40-12.00) fL Neut % (Auto) (48.0-80.0) % Lymph % (Auto) (16.0-40.0) % Day % (Auto) (0.0-15.0) % Eos % (Auto) (0.0-7.0) % Baso % (Auto) (0.0-1.5) % Neut # (Auto) (1.4-5.7) K/uL Lymph # (Auto) (0.6-2.4) K/uL Day # (Auto) (0.0-0.8) K/uL Eos # (Auto) (0.0-0.7) K/uL Baso # (Auto) (0.0-0.1) K/uL Nucleated RBC % /100WBC Nucleated RBCs # K/uL Sodium 139 (136-145) mmol/L Potassium 4.0 (3.5-5.1) mmol/L Chloride 102 (98-107) mmol/L Carbon Dioxide 28.6 (21.0-32.0) mmol/L BUN 18 (7.0-18.0) mg/dL Creatinine 0.8 (0.6-1.0) mg/dL Est Cr Clr Drug Dosing 46.23 mL/min Estimated GFR (MDRD) > 60.0 ml/min Glucose 107 H (74-106) mg/dL Calcium 8.5 (8.5-10.1) mg/dL Magnesium (1.8-2.4) mg/dL Total Bilirubin (0.2-1.0) mg/dL AST (15-37) IU/L ALT (14-63) IU/L Alkaline Phosphatase (46-116) U/L Troponin I (0.000-0.056) ng/mL Total Protein (6.4-8.2) g/dL Albumin (3.4-5.0) g/dL Globulin (2.6-4.0) g/dL Albumin/Globulin Ratio (0.9-1.6) Urine Color Urine Appearance Urine pH (5.0-8.0) Ur Specific [place] (1.001-1.035) Urine Protein (NEGATIVE) mg/dL Urine Glucose (UA) (NEGATIVE) mg/dL Urine Ketones (NEGATIVE) mg/dL Urine Occult Blood (NEGATIVE) Urine Nitrite (NEGATIVE) Urine Bilirubin (NEGATIVE) Urine Urobilinogen (<2.0) EU/dL Ur Leukocyte Esterase (NEGATIVE) Urine RBC (0-2/HPF) Urine WBC (0-5/HPF) Ur Epithelial Cells (NONE-FEW) Urine Bacteria (NEGATIVE) Med Orders - Current: Current Medications Acetaminophen (Tylenol) 650 mg PO Q4H PRN PRN Reason: Pain (Mild 1-3)/fever Albuterol/Ipratropium (Duoneb 3.0-0.5 Mg/3 Ml) 3 ml NEB Q4HRRT PRN PRN Reason: Shortness Of Breath/wheezing Hydralazine HCl (Apresoline) 20 mg IVPUSH Q4H PRN PRN Reason: Hypertension Ketorolac Tromethamine (Toradol) 15 mg IVPUSH Q6H PRN PRN Reason: Pain Stop: 02/09/20 10:45 Metoprolol Succinate (Toprol Xl) 50 mg PO DAILY [facility] Last Admin: 02/04/20 09:34 Dose: 50 mg Documented by: Oxycodone HCl (Oxycodone) 5 mg PO Q8H PRN PRN Reason: Pain Last Admin: 02/04/20 14:50 Dose: 5 mg Documented by: Sertraline HCl (Zoloft) 70 mg PO DAILY [facility] Last Admin: 02/04/20 09:35 Dose: 70 mg Documented by: Discontinued Medications Lactated Ringer's (Ringers, Lactated) 1,000 mls @ 125 mls/hr IV ASDIRECTED [facility] Ceftriaxone Sodium/Dextrose 1 (gm/ Premix) 50 mls @ 100 mls/hr IV ONETIME ONE Stop: 02/04/20 11:16 Last Admin: 02/04/20 11:31 Dose: 100 mls/hr Documented by: Morphine Sulfate (Morphine) 1 mg IVPUSH Q4H PRN PRN Reason: Pain Last Admin: 02/04/20 00:23 Dose: 1 mg Documented by: Morphine Sulfate (Morphine) 1 mg IVPUSH Q4H PRN PRN Reason: Pain Last Admin: 02/04/20 09:36 Dose: 1 mg Documented by: Tramadol HCl (Ultram) 50 mg PO ONETIME ONE Stop: 02/03/20 18:56 Last Admin: 02/03/20 19:38 Dose: 50 mg Documented by:
== END 2020-02-04 06:55 | disposition home or self-care (01) ==
LOC: MW.ED 16:39 → MW.MS 19:08
PROVIDERS: ADMIT Student in an Organized Health Care Education/Training Program; ATTEND Student in an Organized Health Care Education/Training Program
DX: S22.42XA Multiple fractures of ribs, left side, initial encounter for closed fracture (principal); S60.222A Contusion of left hand, initial encounter; I10 Essential (primary) hypertension; F41.9 Anxiety disorder, unspecified; F32.9 Major depressive disorder, single episode, unspecified; G47.00 Insomnia, unspecified; R29.6 Repeated falls; K21.9 Gastro-esophageal reflux disease without esophagitis; Z88.0 Allergy status to penicillin; Z88.1 Allergy status to other antibiotic agents; Z88.8 Allergy status to other drugs, medicaments and biological substances; Z79.899 Other long term (current) drug therapy; W01.198A Fall on same level from slipping, tripping and stumbling with subsequent striking against other object, initial encounter; Y92.009 Unspecified place in unspecified non-institutional (private) residence as the place of occurrence of the external cause
CPT/HCPCS: 36415; 70450; 70450-26; 71101-26-LT; 71101-LT; 73130-26-LT; 73130-LT; 80048; 80053; 81001; 83735; 84484; 85025; 87086; 93005; 93880; 93880-26; 96374; 96375; 96376; 97161-GP; 99284; 99285-25; A9270-GY; G0378; J0696; J2270

== ENCOUNTER 2020-06-09 14:15 | Inpatient (IN) | payer MEDICARE, OTHER ==
[2020-06-09] MEDS ORDERED: Albuterol/Ipratropium 3.0-0.5 MG/3 ML Neb Soln NEB ONE (14:40)
--- NOTE | 2020-06-09 14:59 | EDM.PDOC ---
ED HPI GENERAL MEDICAL PROBLEM - General Chief Complaint: Respiratory Problem Stated Complaint: LOW OXYGEN LEVEL,PNEUMONIA Time Seen by Provider: 06/09/20 14:25 Source of Information: Reports: Patient, Family History Limitations: Reports: No Limitations - History of Present Illness INITIAL COMMENTS - FREE TEXT/NARRATIVE: /Presents with her daughter. Reports that she saw her primary care at the respiratory clinic yesterday 06/08/2020 for cough and shortness of breath. X- ray revealed pneumonia. Covid test pending. Labs within normal limits except potassium 3.0. Oxygen saturations and respiratory rates within normal limits. Was placed on potassium p.o. and Levaquin 500 daily which she has been taking. This morning she has had progressive shortness of breath along with cough. Her daughter was alarmed when her oxygen saturations were in the upper 70s and thus presents. She has been afebrile and without chest pain, nausea, vomiting, abdominal pain or dysuria. She has a history of Parkinson's disease, depression, obesity, GERD, heart murmur. She does not smoke. - Related Data Allergies Allergy/AdvReac Type Severity Reaction Status Date / Time amoxicillin [From Augmentin] Allergy Rash Verified 06/09/20 14:22 clavulanic acid Allergy Rash Verified 06/09/20 14:22 [From Augmentin] escitalopram Allergy Blurred Verified 06/09/20 14:22 Vision mirtazapine Allergy Rash Verified 06/09/20 14:22 tape Allergy Rash Uncoded 06/09/20 14:22 Home Meds: Home Meds Metoprolol Succinate [Toprol XL 50mg] 50 mg PO DAILY 12/12/17 [History] Sertraline [Zoloft] 75 mg PO DAILY 02/03/20 [History] Acetaminophen [Tylenol] 650 mg PO Q4H PRN tablet 02/04/20 [Rx] Albuterol Sulfate [Proair Hfa] 8.5 gm IH Q8HR PRN 10 Days #1 hfa.aer.ad 02/04/20 [Rx] Carbidopa/Levodopa [Carbidopa-Levo 25-100 MG ODT] 1 tab PO TID 06/09/20 [History] Levofloxacin 500 mg PO DAILY 06/09/20 [History] Potassium Chloride 20 meq PO DAILY 06/09/20 [History] Past Medical History HEENT History: Reports: Other (See Below) Other HEENT History: wears glasses, top denture bottom partial Cardiovascular History: Reports: Hypertension, Other (See Below) Other Cardiovascular History: was told she had a murmur in the past Respiratory History: Reports: None Gastrointestinal History: Reports: Colon Polyp, GERD Genitourinary History: Reports: None [employer]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: Musculoskeletal History: Reports: None Other Musculoskeletal History: Fx right ribs from recent fall Neurological History: Reports: Other (See Below) Other Neuro History: recent diagnosis of myasthenia gravis Psychiatric History: Reports: Anxiety, Depression Endocrine/Metabolic History: Reports: Other (See Below) Hematologic History: Reports: Blood Transfusion(s) Other Hematologic History: blood transfusion as an Immunologic History: Reports: Other (See Below) Oncologic (Cancer) History: Reports: Breast Dermatologic History: Reports: None - Infectious Disease History Infectious Disease History: Reports: Chicken Pox, Measles, Mumps - Past Surgical History Head Surgeries/Procedures: Reports: None GI Surgical History: Reports: Appendectomy, Cholecystectomy, Colonoscopy, Hernia, Abdominal Female Surgical History: Reports: Breast Biopsy, D&C, Hysterectomy, Other (See Below) Other Female Surgeries/Procedures: bladder surgery Endocrine Surgical History: Reports: Other (See Below) Other Endocrine Surgeries/Procedures: lymphnode removal, right axillary Oncologic Surgical History: Reports: Biopsy of Breast, Lumpectomy Social & Family History - Family History Family Medical History: Noncontributory - Tobacco Use Second Hand Smoke Exposure: No - Recreational Drug Use Recreational Drug Use: No ED ROS GENERAL - Review of Systems Review Of Systems: Comprehensive ROS is negative, except as noted in HPI. ED EXAM, GENERAL - Physical Exam Exam: See Below Exam Limited By: No Limitations General Appearance: Alert, No Apparent Distress Ears: Normal External Exam Nose: Normal Inspection Throat/Mouth: Normal Inspection Head: Atraumatic, Normocephalic Neck: Normal Inspection, Supple, Full Range of Motion Respiratory/Chest: Rhonchi (Left lower lobe), Other (Mildly tachypneic) Cardiovascular: Normal Peripheral Pulses, Regular Rate, Rhythm, No Edema, Tachycardia GI/Abdominal: Soft, No Distention Back Exam: Normal Inspection Extremities: Normal Inspection, Normal Range of Motion Neurological: Alert, Oriented Psychiatric: Normal Affect, Normal Mood Skin Exam: Warm, Dry, Intact, Normal Color, No Rash Lymphatic: No Adenopathy Course - Vital Signs Last Recorded V/S: Last Vital Signs Temp 36.8 C 06/09/20 14:23 Pulse 101 H 06/09/20 16:52 Resp 22 H 06/09/20 16:52 BP 152/58 H 06/09/20 16:52 Pulse Ox 94 L 06/09/20 16:52 - Orders/Labs/Meds Orders: Active Orders 24 hr Category Date Time Status EKG 12 Lead [EKG Documentation Completion] [RC] STAT Care 06/09/20 14:43 Ordered Oxygen Therapy, ED [RC] ASDIRECTED Care 06/09/20 14:45 Ordered CXR [Chest 1V Frontal] [CR] Stat Exams 06/09/20 16:53 Ordered CULTURE BLOOD [BC] Stat Lab 06/09/20 14:43 Ordered CULTURE BLOOD [BC] Stat Lab 06/09/20 14:43 Ordered URINALYSIS W/MICROSCOPIC [UA W/MICROSCOPIC] [URIN] Stat Lab 06/09/20 14:45 Ordered Blood Culture x2 Reflex Set [OM.PC] Stat Oth 06/09/20 14:42 Ordered Labs: Laboratory Tests 06/09/20 06/09/20 06/09/20 Range/Units 14:27 14:27 15:00 WBC 9.25 (4.0-11.0) K/uL RBC 4.78 (4.30-5.90) M/uL Hgb 14.2 (12.0-16.0) g/dL Hct 43.1 (36.0-46.0) % MCV 90.2 (80.0-98.0) fL MCH 29.7 (27.0-32.0) pg MCHC 32.9 (31.0-37.0) g/dL RDW Std Deviation 47.6 (28.0-62.0) fl RDW Coeff of Bo 14 (11.0-15.0) % Plt Count 268 (150-400) K/uL MPV 9.80 (7.40-12.00) fL Neut % (Auto) 70.8 (48.0-80.0) % Lymph % (Auto) 22.1 (16.0-40.0) % [place] % (Auto) 7.0 (0.0-15.0) % Eos % (Auto) 0.0 (0.0-7.0) % Baso % (Auto) 0.1 (0.0-1.5) % Neut # (Auto) 6.6 H (1.4-5.7) K/uL Lymph # (Auto) 2.0 (0.6-2.4) K/uL [place] # (Auto) 0.7 (0.0-0.8) K/uL Eos # (Auto) 0.0 (0.0-0.7) K/uL Baso # (Auto) 0.0 (0.0-0.1) K/uL Nucleated RBC % 0.0 /100WBC Nucleated RBCs # 0 K/uL Sodium 138 (136-145) mmol/L Potassium 3.4 L (3.5-5.1) mmol/L Chloride 100 (98-107) mmol/L Carbon Dioxide 27.7 (21.0-32.0) mmol/L BUN 18 (7.0-18.0) mg/dL Creatinine 0.7 (0.6-1.0) mg/dL Est Cr Clr Drug Dosing 51.59 mL/min Estimated GFR (MDRD) > 60.0 ml/min Glucose 137 H (74-106) mg/dL Calcium 8.7 (8.5-10.1) mg/dL Troponin I < 0.050 (0.000-0.056) ng/mL SARS-CoV-2 RNA (ODETTE) POSITIVE H (NEGATIVE) Meds: Medications Discontinued Medications Generic Name Dose Route Start Last Admin Trade Name Freq PRN Reason Stop Dose Admin Albuterol/Ipratropium 3 ml 06/09/20 14:40 06/09/20 14:52 Duoneb 3.0-0.5 Mg/3 Ml NEB 06/09/20 14:41 3 ml ONETIME ONE Administration - Re-Assessments/Exams Free Text/Narrative Re-Assessment/Exam: 06/09/20 16:57 Trial off oxygen: within 15 minutes the patient's O2sat decreased to the low 80%. NOS Discussion Dr. Joesluis Fritz, hospitalist. Discussion regarding history, clinical course, lab and x-ray findings. Patient will be admitted for hypoxemia related to COVID-19 pneumonia. Departure - Departure Time of Disposition: 17:02 Disposition: Admitted As Inpatient 64 Condition: Fair Clinical Impression: COVID-19, Hypoxemia Pneumonia Qualifiers: Pneumonia type: due to unspecified organism - Discharge Information *PRESCRIPTION DRUG MONITORING PROGRAM REVIEWED*: Not Applicable *COPY OF PRESCRIPTION DRUG MONITORING REPORT IN PATIENT ALEX: Not Applicable Referrals: Rico Colmenares MD [Primary Care Provider] - Forms: ED Department Discharge Sepsis Event Note (ED) - Evaluation Sepsis Screening Result: No Definite Risk - Focused Exam Vital Signs: Vital Signs Temp Pulse Resp BP Pulse Ox Pulse Ox 06/09/20 16:52 101 H 22 H 152/58 H 94 L 06/09/20 16:32 102 H 22 H 158/62 H 83 L 06/09/20 16:00 107 H 22 H 95 06/09/20 14:46 94 L 06/09/20 14:30 107 H 22 H 93 L 06/09/20 14:23 36.8 C 113 H 26 H 185/75 H 80 L - My Orders Last 24 Hours: My Active Orders 06/09/20 14:42 Blood Culture x2 Reflex Set [OM.PC] Stat 06/09/20 14:43 EKG 12 Lead [EKG Documentation Completion] [RC] STAT CULTURE BLOOD [BC] Stat CULTURE BLOOD [BC] Stat 06/09/20 14:45 Oxygen Therapy, ED [RC] ASDIRECTED URINALYSIS W/MICROSCOPIC [UA W/MICROSCOPIC] [URIN] Stat - Assessment/Plan Last 24 Hours: My Active Orders 06/09/20 14:42 Blood Culture x2 Reflex Set [OM.PC] Stat 06/09/20 14:43 EKG 12 Lead [EKG Documentation Completion] [RC] STAT CULTURE BLOOD [BC] Stat CULTURE BLOOD [BC] Stat 06/09/20 14:45 Oxygen Therapy, ED [RC] ASDIRECTED URINALYSIS W/MICROSCOPIC [UA W/MICROSCOPIC] [URIN] Stat
[2020-06-09 15:09] LABS: BLOOD UREA NITROGEN,BUN 18 mg/dL (7.0-18.0); CARBON DIOXIDE,CO2 27.7 mmol/L (21.0-32.0); CHLORIDE,CL 100 mmol/L (98-107); GLUCOSE RANDOM 137 mg/dL (74-106); POTASSIUM,K 3.4 mmol/L (3.5-5.1); SODIUM,NA 138 mmol/L (136-145)
--- NOTE | 2020-06-09 17:39 | CR ---
Indication: COVID positive with dyspnea. Technique: Chest 1 view Comparison: June 08, 2020. Findings/Impression: Cardiovascular and mediastinum: Heart size and vasculature are normal in caliber and appearance. Lungs and pleural space: Ill-defined infiltrates predominantly in the lower lobes bilaterally consistent with pneumonitis may have slightly worsened. No significant effusion and no pneumothorax. No other change from yesterday`s exam. Bones and soft tissues: No acute findings. Dictated by Kamron Gupta MD @ Jun 09 2020 5:36PM Signed by Dr. Kamron Gupta @ Jun 09 2020 5:37PM
[2020-06-09] MEDS ORDERED: Albuterol 6.7 GM Inhaler INH PRN (17:47)
[2020-06-09] MEDS ORDERED: Acetaminophen 325 MG Tab PO PRN (17:47)
--- NOTE | 2020-06-09 17:57 | PCM.HP.2 ---
H&P History of Present Illness - General Date of Service: 06/09/20 Admit Problem/Dx: Admission Diagnosis/Problem Admission Diagnosis/Problem Pneumonia - History of Present Illness Initial Comments - Free Text/Narative: 74 yo female with pmh of parkinson's who presented with several day history of fevers, malaise, cough and shortness of breath. She was seen in the ED yesterday and treated for a pneumonia. She presents to the ED again today with worsening symptoms. She tested positive for COVID today. - Related Data Allergies/Adverse Reactions: Allergies Allergy/AdvReac Type Severity Reaction Status Date / Time amoxicillin [From Augmentin] Allergy Rash Verified 06/09/20 20:55 clavulanic acid Allergy Rash Verified 06/09/20 20:55 [From Augmentin] escitalopram Allergy Blurred Verified 06/09/20 20:55 Vision mirtazapine Allergy Rash Verified 06/09/20 20:55 tape Allergy Rash Uncoded 06/09/20 20:55 Home Medications: Home Meds Metoprolol Succinate [Toprol XL 50mg] 50 mg PO DAILY 12/12/17 [History] Sertraline [Zoloft] 100 mg PO DAILY 02/03/20 [History] Acetaminophen [Tylenol] 650 mg PO Q4H PRN tablet 02/04/20 [Rx] Carbidopa/Levodopa [Carbidopa-Levo 25-100 MG ODT] 1 tab PO TID 06/09/20 [History] Fluorometholone [Fluorometholone 0.1% Ophth Susp] 1 drop EYERT TID 06/09/20 [History] Levofloxacin 500 mg PO DAILY 06/09/20 [History] Potassium Chloride 20 meq PO DAILY 06/09/20 [History] Past Medical History HEENT History: Reports: Other (See Below) Other HEENT History: wears glasses, top denture bottom partial Cardiovascular History: Reports: Hypertension, Other (See Below) Other Cardiovascular History: was told she had a murmur in the past Respiratory History: Reports: None Gastrointestinal History: Reports: Colon Polyp, GERD Genitourinary History: Reports: None [employer] History: Reports: Musculoskeletal History: Reports: None Other Musculoskeletal History: Fx right ribs from recent fall Neurological History: Reports: Other (See Below) Other Neuro History: recent diagnosis of myasthenia gravis Psychiatric History: Reports: Anxiety, Depression Endocrine/Metabolic History: Reports: Other (See Below) Hematologic History: Reports: Blood Transfusion(s) Other Hematologic History: blood transfusion as an infant Immunologic History: Reports: Other (See Below) Oncologic (Cancer) History: Reports: Breast Dermatologic History: Reports: None - Infectious Disease History Infectious Disease History: Reports: Chicken Pox, Measles, Mumps - Past Surgical History Head Surgeries/Procedures: Reports: None GI Surgical History: Reports: Appendectomy, Cholecystectomy, Colonoscopy, Hernia, Abdominal Female Surgical History: Reports: Breast Biopsy, D&C, Hysterectomy, Other (See Below) Other Female Surgeries/Procedures: bladder surgery Endocrine Surgical History: Reports: Other (See Below) Other Endocrine Surgeries/Procedures: lymphnode removal, right axillary Oncologic Surgical History: Reports: Biopsy of Breast, Lumpectomy Social & Family History - Family History Family Medical History: Noncontributory - Tobacco Use Second Hand Smoke Exposure: No - Recreational Drug Use Recreational Drug Use: No H&P Review of Systems - Review of Systems: Review Of Systems: Comprehensive ROS is negative, except as noted in HPI. Exam - Exam Exam: See Below - Vital Signs Vital Signs: Last Vital Signs Temp 36.8 C 06/09/20 14:23 Pulse 101 H 06/09/20 16:52 Resp 22 H 06/09/20 16:52 BP 152/58 H 06/09/20 16:52 Pulse Ox 94 L 06/09/20 16:52 Weight: 49.895 kg - Exam General: Alert, Oriented HEENT: Mucosa Moist & [place] Lungs: Clear to Auscultation, Normal Respiratory Effort Cardiovascular: Regular Rate, Regular Rhythm GI/Abdominal Exam: Soft, Non-Tender, No Distention Extremities: Non-Tender, No Pedal Edema Skin: Warm, Dry, Intact - Patient Data Lab Results Last 24 hrs: Laboratory Results - last 24 hr 06/09/20 06/09/20 06/09/20 Range/Units 14:27 14:27 15:00 WBC 9.25 (4.0-11.0) K/uL RBC 4.78 (4.30-5.90) M/uL Hgb 14.2 (12.0-16.0) g/dL Hct 43.1 (36.0-46.0) % MCV 90.2 (80.0-98.0) fL MCH 29.7 (27.0-32.0) pg MCHC 32.9 (31.0-37.0) g/dL RDW Std Deviation 47.6 (28.0-62.0) fl RDW Coeff of Bo 14 (11.0-15.0) % Plt Count 268 (150-400) K/uL MPV 9.80 (7.40-12.00) fL Neut % (Auto) 70.8 (48.0-80.0) % Lymph % (Auto) 22.1 (16.0-40.0) % [place] % (Auto) 7.0 (0.0-15.0) % Eos % (Auto) 0.0 (0.0-7.0) % Baso % (Auto) 0.1 (0.0-1.5) % Neut # (Auto) 6.6 H (1.4-5.7) K/uL Lymph # (Auto) 2.0 (0.6-2.4) K/uL [place] # (Auto) 0.7 (0.0-0.8) K/uL Eos # (Auto) 0.0 (0.0-0.7) K/uL Baso # (Auto) 0.0 (0.0-0.1) K/uL Nucleated RBC % 0.0 /100WBC Nucleated RBCs # 0 K/uL Sodium 138 (136-145) mmol/L Potassium 3.4 L (3.5-5.1) mmol/L Chloride 100 (98-107) mmol/L Carbon Dioxide 27.7 (21.0-32.0) mmol/L BUN 18 (7.0-18.0) mg/dL Creatinine 0.7 (0.6-1.0) mg/dL Est Cr Clr Drug Dosing 51.59 mL/min Estimated GFR (MDRD) > 60.0 ml/min Glucose 137 H (74-106) mg/dL Calcium 8.7 (8.5-10.1) mg/dL Troponin I < 0.050 (0.000-0.056) ng/mL SARS-CoV-2 RNA (ODETTE) POSITIVE H (NEGATIVE) Result Diagrams: 06/10/20 06:03 06/10/20 06:03 Chay Results Last 24 hrs: Microbiology 06/09/20 15:12 Anaerobic Blood Culture - Final Blood - Venous - Lab Draw Sepsis Event Note - Evaluation Sepsis Screening Result: No Definite Risk - Focused Exam Vital Signs: Vital Signs Temp Pulse Resp BP Pulse Ox Pulse Ox 06/09/20 16:52 101 H 22 H 152/58 H 94 L 06/09/20 16:32 102 H 22 H 158/62 H 83 L 06/09/20 16:00 107 H 22 H 95 06/09/20 14:46 94 L 06/09/20 14:30 107 H 22 H 93 L 06/09/20 14:23 36.8 C 113 H 26 H 185/75 H 80 L Problem List Initiated/Reviewed/Updated: Yes Orders Last 24hrs: Active Orders 24 hr Category Date Time Status Patient Status [ADT] Stat ADT 06/09/20 16:59 Active Antiembolic Devices [RC] PER UNIT ROUTINE Care 06/09/20 17:50 Ordered EKG 12 Lead [EKG Documentation Completion] [RC] STAT Care 06/09/20 14:43 Active Oxygen Therapy [RC] PRN Care 06/09/20 17:49 Ordered Oxygen Therapy, ED [RC] ASDIRECTED Care 06/09/20 14:45 Active RT Post Treatment Assessment [RC] Click to Edit Care 06/09/20 17:48 Ordered RT Pre-Treatment Assessment [RC] Click to Edit Care 06/09/20 17:48 Ordered Up ad Vivi [RC] ASDIRECTED Care 06/09/20 17:49 Ordered VTE/DVT Education [RC] PER UNIT ROUTINE Care 06/09/20 17:49 Ordered Vital Signs [RC] Q4H Care 06/09/20 17:49 Ordered Regular Diet [DIET] Diet 06/09/20 Breakfast Ordered CBC WITH AUTO DIFF [HEME] AM Lab 06/10/20 05:11 Ordered CBC WITH AUTO DIFF [HEME] AM Lab 06/11/20 05:11 Ordered COMPREHENSIVE METABOLIC PN,CMP [CHEM] AM Lab 06/10/20 05:11 Ordered COMPREHENSIVE METABOLIC PN,CMP [CHEM] AM Lab 06/11/20 05:11 Ordered CULTURE BLOOD [BC] Stat Lab 06/09/20 14:27 Received CULTURE BLOOD [BC] Stat Lab 06/09/20 15:12 Results URINALYSIS W/MICROSCOPIC [UA W/MICROSCOPIC] [URIN] Stat Lab 06/09/20 14:45 Ordered Acetaminophen [TylenoL] Med 06/09/20 17:47 Ordered 650 mg PO Q4H PRN Albuterol [Proventil HFA] Med 06/09/20 17:47 Ordered 8.5 gm INH Q8HR PRN Carbidopa/Levodopa [Carbidopa-Levo 25-100 MG ODT] Med 06/09/20 22:00 Ordered 1 tab PO TID Enoxaparin [Lovenox] Med 06/09/20 18:00 Ordered 40 mg SUBCUT Q24H Metoprolol Succinate [Toprol XL] Med 06/10/20 09:00 Ordered 50 mg PO DAILY Remdesivir (Eua) [Remdesivir (EUA)] 100 mg Med 06/10/20 18:00 Ordered Sodium Chloride 0.9% [Normal Saline] 100 ml IV Q24H Sertraline [Zoloft] Med 06/10/20 09:00 Ordered 75 mg PO DAILY dexAMETHasone [Dexamethasone] Med 06/09/20 18:00 Ordered 6 mg IVPUSH Q24H levoFLOXacin [Levaquin] Med 06/10/20 09:00 Ordered 500 mg PO DAILY Blood Culture x2 Reflex Set [OM.PC] Stat Oth 06/09/20 14:42 Ordered Sequential Compression Device [OM.PC] Per Unit Routine Oth 06/09/20 17:49 Ordered Resuscitation Status Routine Resus Stat 06/09/20 17:49 Ordered Medication Orders Acetaminophen (Tylenol) 650 mg PO Q4H PRN PRN Reason: Pain (Mild 1-3)/fever Albuterol (Proventil Hfa) 8.5 gm INH Q8HR PRN PRN Reason: Wheezing Dexamethasone (Dexamethasone) 6 mg IVPUSH Q24H [facility] Enoxaparin Sodium (Lovenox) 40 mg SUBCUT Q24H [facility] Remdesivir 100 mg/ Sodium (Chloride) 100 mls @ 100 mls/hr IV Q24H [facility] Stop: 06/13/20 18:59 Levofloxacin (Levaquin) 500 mg PO DAILY [facility] Metoprolol Succinate (Toprol Xl) 50 mg PO DAILY [facility] Non-Formulary Medication (Carbidopa/Levodopa [Carbidopa-Levo 25-100 Mg Odt]) 1 tab PO TID [facility] Sertraline HCl (Zoloft) 75 mg PO DAILY [facility] Assessment/Plan Comment:: 74 yo female admitted for COVID-19. We will treat with Remdesivir, dexamethasone, and supplemental oxygen. Patient was given fact sheet on Remdesivir FDA EUA. Patient was explained risk vs benefit of remdesivir and consented to its use.
[2020-06-09] MEDS: Dexamethasone 10 MG/ML SDV IVPUSH SCH (18:45)
[2020-06-09] MEDS: Enoxaparin 40 MG/0.4 ML Syringe SUBCUT SCH (18:47)
[2020-06-09] MEDS: LEVODOPA PO SCH (23:02)
[2020-06-09] MEDS: [UNRECOGNIZED DRUG - OTHER] PO SCH (23:02)
[2020-06-09] MEDS: CARBIDOPA PO SCH (23:02)
[2020-06-10 06:35] LABS: BLOOD UREA NITROGEN,BUN 18 mg/dL (7.0-18.0); CARBON DIOXIDE,CO2 28.2 mmol/L (21.0-32.0); CHLORIDE,CL 103 mmol/L (98-107); GLUCOSE RANDOM 140 mg/dL (74-106); POTASSIUM,K 3.3 mmol/L (3.5-5.1); SODIUM,NA 140 mmol/L (136-145)
[2020-06-10] MEDS ORDERED: Carbidopa/Levodopa 25-100 MG Tab PO SCH (08:32)
[2020-06-10] MEDS: Metoprolol Succinate 50 MG Tab.ER PO SCH (08:52)
[2020-06-10] MEDS: Carbidopa/Levodopa 25-100 MG Tab PO SCH ×3 (08:52→21:55)
[2020-06-10] MEDS: Levofloxacin 500 MG Tab PO SCH (08:52)
[2020-06-10] MEDS: Sertraline 50 MG Tab PO SCH (08:53)
[2020-06-10] MEDS: FLUOROMETHOLONE 0.1% EYERT SCH ×3 (09:59→22:02)
[2020-06-10] MEDS ORDERED: Potassium Chloride 20 MEQ Tab.ER PO ONE (10:34)
--- NOTE | 2020-06-10 10:42 | PCM.PN ---
- General Info Date of Service: 06/10/20 - Review of Systems Systems Review Comment:: feels short of breath when walking to bathroom and at rest, denies any fevers, chest pain, diarrhea. - Patient Data Vitals - Most Recent: Last Vital Signs Temp 36.6 C 06/10/20 09:04 Pulse 85 06/10/20 09:04 Resp 20 06/10/20 10:01 BP 135/60 06/10/20 09:04 Pulse Ox 92 L 06/10/20 10:01 Weight - Most Recent: 49.895 kg I&O - Last 24 Hours: Intake & Output 06/09/20 06/10/20 06/10/20 22:59 06:59 14:59 Intake Total 150 Output Total 350 Balance -200 Lab Results Last 24 Hours: Laboratory Results - last 24 hr 06/09/20 06/09/20 06/09/20 Range/Units 14:27 14:27 15:00 WBC 9.25 (4.0-11.0) K/uL RBC 4.78 (4.30-5.90) M/uL Hgb 14.2 (12.0-16.0) g/dL Hct 43.1 (36.0-46.0) % MCV 90.2 (80.0-98.0) fL MCH 29.7 (27.0-32.0) pg MCHC 32.9 (31.0-37.0) g/dL RDW Std Deviation 47.6 (28.0-62.0) fl RDW Coeff of Bo 14 (11.0-15.0) % Plt Count 268 (150-400) K/uL MPV 9.80 (7.40-12.00) fL Neut % (Auto) 70.8 (48.0-80.0) % Lymph % (Auto) 22.1 (16.0-40.0) % [place] % (Auto) 7.0 (0.0-15.0) % Eos % (Auto) 0.0 (0.0-7.0) % Baso % (Auto) 0.1 (0.0-1.5) % Neut # (Auto) 6.6 H (1.4-5.7) K/uL Lymph # (Auto) 2.0 (0.6-2.4) K/uL [place] # (Auto) 0.7 (0.0-0.8) K/uL Eos # (Auto) 0.0 (0.0-0.7) K/uL Baso # (Auto) 0.0 (0.0-0.1) K/uL Nucleated RBC % 0.0 /100WBC Nucleated RBCs # 0 K/uL Sodium 138 (136-145) mmol/L Potassium 3.4 L (3.5-5.1) mmol/L Chloride 100 (98-107) mmol/L Carbon Dioxide 27.7 (21.0-32.0) mmol/L BUN 18 (7.0-18.0) mg/dL Creatinine 0.7 (0.6-1.0) mg/dL Est Cr Clr Drug Dosing 51.59 mL/min Estimated GFR (MDRD) > 60.0 ml/min Glucose 137 H (74-106) mg/dL Calcium 8.7 (8.5-10.1) mg/dL Total Bilirubin (0.2-1.0) mg/dL AST (15-37) IU/L ALT (14-63) IU/L Alkaline Phosphatase (46-116) U/L Troponin I < 0.050 (0.000-0.056) ng/mL Total Protein (6.4-8.2) g/dL Albumin (3.4-5.0) g/dL Globulin (2.6-4.0) g/dL Albumin/Globulin Ratio (0.9-1.6) Urine Color Urine Appearance Urine pH (5.0-8.0) Ur Specific [place] (1.001-1.035) Urine Protein (NEGATIVE) mg/dL Urine Glucose (UA) (NEGATIVE) mg/dL Urine Ketones (NEGATIVE) mg/dL Urine Occult Blood (NEGATIVE) Urine Nitrite (NEGATIVE) Urine Bilirubin (NEGATIVE) Urine Urobilinogen (<2.0) EU/dL Ur Leukocyte Esterase (NEGATIVE) Urine RBC (0-2/HPF) Urine WBC (0-5/HPF) Ur Epithelial Cells (NONE-FEW) Urine Bacteria (NEGATIVE) Urine Mucus (NONE-MOD) SARS-CoV-2 RNA (ODETTE) POSITIVE H (NEGATIVE) 06/09/20 06/10/20 06/10/20 Range/Units 17:50 06:03 06:03 WBC 5.66 (4.0-11.0) K/uL RBC 4.63 (4.30-5.90) M/uL Hgb 13.5 (12.0-16.0) g/dL Hct 42.1 (36.0-46.0) % MCV 90.9 (80.0-98.0) fL MCH 29.2 (27.0-32.0) pg MCHC 32.1 (31.0-37.0) g/dL RDW Std Deviation 48.7 (28.0-62.0) fl RDW Coeff of Bo 15 (11.0-15.0) % Plt Count 265 (150-400) K/uL MPV 10.10 (7.40-12.00) fL Neut % (Auto) 71.7 (48.0-80.0) % Lymph % (Auto) 24.2 (16.0-40.0) % [place] % (Auto) 4.1 (0.0-15.0) % Eos % (Auto) 0.0 (0.0-7.0) % Baso % (Auto) 0.0 (0.0-1.5) % Neut # (Auto) 4.1 (1.4-5.7) K/uL Lymph # (Auto) 1.4 (0.6-2.4) K/uL [place] # (Auto) 0.2 (0.0-0.8) K/uL Eos # (Auto) 0.0 (0.0-0.7) K/uL Baso # (Auto) 0.0 (0.0-0.1) K/uL Nucleated RBC % 0.0 /100WBC Nucleated RBCs # 0 K/uL Sodium 140 (136-145) mmol/L Potassium 3.3 L (3.5-5.1) mmol/L Chloride 103 (98-107) mmol/L Carbon Dioxide 28.2 (21.0-32.0) mmol/L BUN 18 (7.0-18.0) mg/dL Creatinine 0.7 (0.6-1.0) mg/dL Est Cr Clr Drug Dosing 52.83 mL/min Estimated GFR (MDRD) > 60.0 ml/min Glucose 140 H (74-106) mg/dL Calcium 8.3 L (8.5-10.1) mg/dL Total Bilirubin 0.5 (0.2-1.0) mg/dL AST 22 (15-37) IU/L ALT 14 (14-63) IU/L Alkaline Phosphatase 78 (46-116) U/L Troponin I (0.000-0.056) ng/mL Total Protein 6.8 (6.4-8.2) g/dL Albumin 2.8 L (3.4-5.0) g/dL Globulin 4.0 (2.6-4.0) g/dL Albumin/Globulin Ratio 0.7 L (0.9-1.6) Urine Color YELLOW Urine Appearance SLT CLOUDY Urine pH 5.5 (5.0-8.0) Ur Specific [place] >= 1.030 (1.001-1.035) Urine Protein 100 H (NEGATIVE) mg/dL Urine Glucose (UA) NEGATIVE (NEGATIVE) mg/dL Urine Ketones 15 H (NEGATIVE) mg/dL Urine Occult Blood TRACE-INTACT H (NEGATIVE) Urine Nitrite NEGATIVE (NEGATIVE) Urine Bilirubin NEGATIVE (NEGATIVE) Urine Urobilinogen 0.2 (<2.0) EU/dL Ur Leukocyte Esterase NEGATIVE (NEGATIVE) Urine RBC 0-2 (0-2/HPF) Urine WBC 0-3 (0-5/HPF) Ur Epithelial Cells FEW (NONE-FEW) Urine Bacteria FEW (NEGATIVE) Urine Mucus LIGHT (NONE-MOD) SARS-CoV-2 RNA (ODETTE) (NEGATIVE) Chay Results Last 24 Hours: Microbiology 06/09/20 15:12 Anaerobic Blood Culture - Final Blood - Venous - Lab Draw Med Orders - Current: Current Medications Acetaminophen (Tylenol) 650 mg PO Q4H PRN PRN Reason: Pain (Mild 1-3)/fever Albuterol (Proventil Hfa) 8.5 gm INH Q8HR PRN PRN Reason: Wheezing Carbidopa/Levodopa (Sinemet 25-100 Mg) 1 tab PO TID [facility] Last Admin: 06/10/20 08:52 Dose: 1 tab Documented by: Dexamethasone (Dexamethasone) 6 mg IVPUSH Q24H [facility] Last Admin: 06/09/20 18:45 Dose: 6 mg Documented by: Enoxaparin Sodium (Lovenox) 40 mg SUBCUT Q24H [facility] Last Admin: 06/09/20 18:47 Dose: 40 mg Documented by: Remdesivir 100 mg/ Sodium (Chloride) 100 mls @ 100 mls/hr IV Q24H [facility] Stop: 06/13/20 18:59 Levofloxacin (Levaquin) 500 mg PO DAILY [facility] Last Admin: 06/10/20 08:52 Dose: 500 mg Documented by: Metoprolol Succinate (Toprol Xl) 50 mg PO DAILY [facility] Last Admin: 06/10/20 08:52 Dose: 50 mg Documented by: Fluorometholone 0.1% Ophth Soln 10 Ml Bottle 1 each EYERT TID [facility] Last Admin: 06/10/20 09:59 Dose: 1 each Documented by: Potassium Chloride (Klor-Con M20) 40 meq PO ONETIME ONE Stop: 06/10/20 10:35 Sertraline HCl (Zoloft) 75 mg PO DAILY [facility] Last Admin: 06/10/20 08:53 Dose: 75 mg Documented by: Discontinued Medications Albuterol/Ipratropium (Duoneb 3.0-0.5 Mg/3 Ml) 3 ml NEB ONETIME ONE Stop: 06/09/20 14:41 Last Admin: 06/09/20 14:52 Dose: 3 ml Documented by: Remdesivir 200 mg/ Sodium (Chloride) 250 mls @ 250 mls/hr IV ONETIME ONE Stop: 06/09/20 17:50 Last Admin: 06/09/20 20:09 Dose: 250 mls/hr Documented by: Non-Formulary Medication (Carbidopa/Levodopa [Carbidopa-Levo 25-100 Mg Odt]) 1 tab PO TID [facility] Last Admin: 06/09/20 23:02 Dose: Not Given Documented by: - Exam General: Alert, Oriented Lungs: Clear to Auscultation, Normal Respiratory Effort Cardiovascular: Regular Rate, Regular Rhythm GI/Abdominal Exam: Soft, Non-Tender, No Distention Neurological: No New Focal Deficit Sepsis Event Note - Evaluation Sepsis Screening Result: No Definite Risk - Focused Exam Vital Signs: Vital Signs Temp Pulse Pulse Resp BP BP Pulse Ox 06/10/20 10:01 20 92 L 06/10/20 09:04 36.6 C 85 20 135/60 89 L 06/10/20 08:52 85 135/60 06/10/20 04:00 36.4 C 14 168/72 H 92 L 06/09/20 23:55 35.9 C L 72 16 137/61 92 L - Problem List Review Problem List Initiated/Reviewed/Updated: Yes - My Orders Last 24 Hours: My Active Orders 06/09/20 17:47 Acetaminophen [TylenoL] 650 mg PO Q4H PRN Albuterol [Proventil HFA] 8.5 gm INH Q8HR PRN 06/09/20 17:48 RT Post Treatment Assessment [RC] Click to Edit RT Pre-Treatment Assessment [RC] Click to Edit 06/09/20 17:49 Oxygen Therapy [RC] PRN Up ad Vivi [RC] ASDIRECTED VTE/DVT Education [RC] PER UNIT ROUTINE Vital Signs [RC] Q4H Sequential Compression Device [OM.PC] Per Unit Routine Resuscitation Status Routine 06/09/20 17:50 Antiembolic Devices [RC] PER UNIT ROUTINE 06/09/20 18:00 Enoxaparin [Lovenox] 40 mg SUBCUT Q24H dexAMETHasone [Dexamethasone] 6 mg IVPUSH Q24H 06/10/20 09:00 Carbidopa/Levodopa [Sinemet 25-100 mg] 1 tab PO TID Metoprolol Succinate [Toprol XL] 50 mg PO DAILY Patient's Own Medication [Ptom] 1 each EYERT TID Sertraline [Zoloft] 75 mg PO DAILY levoFLOXacin [Levaquin] 500 mg PO DAILY 06/10/20 10:33 ABO/RH TYPE [BBK] Routine FRESH FROZEN PLASMA [BBK] Routine INR,PT,PROTHROMBIN TIME [COAG] Routine PTT,PARTIAL THROMBOPLSTIN TIME [COAG] Routine Transfuse Fresh Frozen Plasma [COMM] Routine 06/10/20 10:34 Potassium Chloride [Klor-Con M20] 40 meq PO ONETIME ONE 06/10/20 18:00 Remdesivir (Eua) [Remdesivir (EUA)] 100 mg Sodium Chloride 0.9% [Normal Saline] 100 ml IV Q24H 06/11/20 05:11 CBC WITH AUTO DIFF [HEME] AM COMPREHENSIVE METABOLIC PN,CMP [CHEM] AM - Plan Plan:: 74 yo female admitted for COVID-19 and acute hypoxic respiratory failure. Oxygen requirement is increasing. Now on 7 liters HFNC Continue remdesivir, dexamethasone, levaquin and ppx lovenox I gave patient fact sheet on convalescent plasma and explained its EUA. The benefit and risks were explained including risk of making infection worse or susceptible to reinfection were explained. She has conseneted to ccp use.
[2020-06-10] MEDS: LEVODOPA PO SCH (11:01)
[2020-06-10] MEDS: [UNRECOGNIZED DRUG - OTHER] PO SCH (11:01)
[2020-06-10] MEDS: CARBIDOPA PO SCH (11:01)
[2020-06-10] MEDS: REMDESIVIR (EUA) 100 MG in Sodium Chloride 0.9% 100 ML IV SCH (18:34)
[2020-06-10] MEDS: Enoxaparin 40 MG/0.4 ML Syringe SUBCUT SCH (18:35)
[2020-06-10] MEDS: Dexamethasone 10 MG/ML SDV IVPUSH SCH (18:35)
[2020-06-11] MEDS: Carbidopa/Levodopa 25-100 MG Tab PO SCH ×3 (05:43→21:42)
[2020-06-11] MEDS: FLUOROMETHOLONE 0.1% EYERT SCH ×3 (05:43→21:42)
[2020-06-11 06:35] LABS: BLOOD UREA NITROGEN,BUN 26 mg/dL (7.0-18.0); CARBON DIOXIDE,CO2 28.1 mmol/L (21.0-32.0); CHLORIDE,CL 106 mmol/L (98-107); GLUCOSE RANDOM 119 mg/dL (74-106); SODIUM,NA 140 mmol/L (136-145)
--- NOTE | 2020-06-11 09:05 | PCM.PN ---
- General Info Date of Service: 06/11/20 Subjective Update: Reports cough and shortness of breath has improved a bit. She is having bowel movements and tolerating oral diet. - Patient Data Vitals - Most Recent: Last Vital Signs Temp 36.4 C 06/11/20 04:00 Pulse 64 06/11/20 04:00 Resp 16 06/11/20 04:00 BP 150/67 H 06/11/20 04:00 Pulse Ox 95 06/11/20 04:00 Weight - Most Recent: 49.895 kg I&O - Last 24 Hours: Intake & Output 06/10/20 06/11/20 06/11/20 22:59 06:59 14:59 Intake Total 791 100 Output Total 450 200 Balance 341 -100 Lab Results Last 24 Hours: Laboratory Results - last 24 hr 06/10/20 06/10/20 06/11/20 Range/Units 11:25 11:25 05:43 WBC 7.46 (4.0-11.0) K/uL RBC 4.47 (4.30-5.90) M/uL Hgb 13.2 (12.0-16.0) g/dL Hct 40.9 (36.0-46.0) % MCV 91.5 (80.0-98.0) fL MCH 29.5 (27.0-32.0) pg MCHC 32.3 (31.0-37.0) g/dL RDW Std Deviation 48.8 (28.0-62.0) fl RDW Coeff of Bo 15 (11.0-15.0) % Plt Count 344 (150-400) K/uL MPV 10.10 (7.40-12.00) fL Neut % (Auto) 70.7 (48.0-80.0) % Lymph % (Auto) 20.5 (16.0-40.0) % Noble % (Auto) 8.8 (0.0-15.0) % Eos % (Auto) 0.0 (0.0-7.0) % Baso % (Auto) 0.0 (0.0-1.5) % Neut # (Auto) 5.3 (1.4-5.7) K/uL Lymph # (Auto) 1.5 (0.6-2.4) K/uL Noble # (Auto) 0.7 (0.0-0.8) K/uL Eos # (Auto) 0.0 (0.0-0.7) K/uL Baso # (Auto) 0.0 (0.0-0.1) K/uL Nucleated RBC % 0.0 /100WBC Nucleated RBCs # 0 K/uL INR 1.07 APTT 28.4 (18.6-31.3) SEC Sodium (136-145) mmol/L Potassium (3.5-5.1) mmol/L Chloride (98-107) mmol/L Carbon Dioxide (21.0-32.0) mmol/L BUN (7.0-18.0) mg/dL Creatinine (0.6-1.0) mg/dL Est Cr Clr Drug Dosing mL/min Estimated GFR (MDRD) ml/min Glucose (74-106) mg/dL Calcium (8.5-10.1) mg/dL Total Bilirubin (0.2-1.0) mg/dL AST (15-37) IU/L ALT (14-63) IU/L Alkaline Phosphatase (46-116) U/L Total Protein (6.4-8.2) g/dL Albumin (3.4-5.0) g/dL Globulin (2.6-4.0) g/dL Albumin/Globulin Ratio (0.9-1.6) Blood Type A POSITIVE 06/11/20 Range/Units 05:43 WBC (4.0-11.0) K/uL RBC (4.30-5.90) M/uL Hgb (12.0-16.0) g/dL Hct (36.0-46.0) % MCV (80.0-98.0) fL MCH (27.0-32.0) pg MCHC (31.0-37.0) g/dL RDW Std Deviation (28.0-62.0) fl RDW Coeff of Bo (11.0-15.0) % Plt Count (150-400) K/uL MPV (7.40-12.00) fL Neut % (Auto) (48.0-80.0) % Lymph % (Auto) (16.0-40.0) % Noble % (Auto) (0.0-15.0) % Eos % (Auto) (0.0-7.0) % Baso % (Auto) (0.0-1.5) % Neut # (Auto) (1.4-5.7) K/uL Lymph # (Auto) (0.6-2.4) K/uL Noble # (Auto) (0.0-0.8) K/uL Eos # (Auto) (0.0-0.7) K/uL Baso # (Auto) (0.0-0.1) K/uL Nucleated RBC % /100WBC Nucleated RBCs # K/uL INR APTT (18.6-31.3) SEC Sodium 140 (136-145) mmol/L Potassium 4.0 (3.5-5.1) mmol/L Chloride 106 (98-107) mmol/L Carbon Dioxide 28.1 (21.0-32.0) mmol/L BUN 26 H (7.0-18.0) mg/dL Creatinine 0.6 (0.6-1.0) mg/dL Est Cr Clr Drug Dosing 61.64 mL/min Estimated GFR (MDRD) > 60.0 ml/min Glucose 119 H (74-106) mg/dL Calcium 8.4 L (8.5-10.1) mg/dL Total Bilirubin 0.5 (0.2-1.0) mg/dL AST 21 (15-37) IU/L ALT 16 (14-63) IU/L Alkaline Phosphatase 73 (46-116) U/L Total Protein 6.5 (6.4-8.2) g/dL Albumin 2.7 L (3.4-5.0) g/dL Globulin 3.8 (2.6-4.0) g/dL Albumin/Globulin Ratio 0.7 L (0.9-1.6) Blood Type Chay Results Last 24 Hours: Microbiology 06/09/20 15:12 Aerobic Blood Culture - Preliminary Blood - Venous - Lab Draw NO GROWTH AFTER 1 DAY Anaerobic Blood Culture - Final 06/09/20 14:27 Aerobic Blood Culture - Preliminary Blood - Venous NO GROWTH AFTER 1 DAY Anaerobic Blood Culture - Preliminary NO GROWTH AFTER 1 DAY Med Orders - Current: Current Medications Acetaminophen (Tylenol) 650 mg PO Q4H PRN PRN Reason: Pain (Mild 1-3)/fever Albuterol (Proventil Hfa) 8.5 gm INH Q8HR PRN PRN Reason: Wheezing Carbidopa/Levodopa (Sinemet 25-100 Mg) 1 tab PO TID [facility] Last Admin: 06/11/20 05:43 Dose: 1 tab Documented by: Dexamethasone (Dexamethasone) 6 mg IVPUSH Q24H [facility] Last Admin: 06/10/20 18:35 Dose: 6 mg Documented by: Enoxaparin Sodium (Lovenox) 40 mg SUBCUT Q24H [facility] Last Admin: 06/10/20 18:35 Dose: 40 mg Documented by: Remdesivir 100 mg/ Sodium (Chloride) 100 mls @ 100 mls/hr IV Q24H [facility] Stop: 06/13/20 18:59 Last Admin: 06/10/20 18:34 Dose: 100 mls/hr Documented by: Levofloxacin (Levaquin) 500 mg PO DAILY [facility] Last Admin: 06/10/20 08:52 Dose: 500 mg Documented by: Metoprolol Succinate (Toprol Xl) 50 mg PO DAILY [facility] Last Admin: 06/10/20 08:52 Dose: 50 mg Documented by: Fluorometholone 0.1% Ophth Soln 10 Ml Bottle 1 each EYERT TID [facility] Last Admin: 06/11/20 05:43 Dose: 1 each Documented by: Sertraline HCl (Zoloft) 75 mg PO DAILY [facility] Last Admin: 06/10/20 08:53 Dose: 75 mg Documented by: Discontinued Medications Albuterol/Ipratropium (Duoneb 3.0-0.5 Mg/3 Ml) 3 ml NEB ONETIME ONE Stop: 06/09/20 14:41 Last Admin: 06/09/20 14:52 Dose: 3 ml Documented by: Remdesivir 200 mg/ Sodium (Chloride) 250 mls @ 250 mls/hr IV ONETIME ONE Stop: 06/09/20 17:50 Last Admin: 06/09/20 20:09 Dose: 250 mls/hr Documented by: Non-Formulary Medication (Carbidopa/Levodopa [Carbidopa-Levo 25-100 Mg Odt]) 1 tab PO TID [facility] Last Admin: 06/10/20 11:01 Dose: Not Given Documented by: Potassium Chloride (Klor-Con M20) 40 meq PO ONETIME ONE Stop: 06/10/20 10:35 Last Admin: 10/25/20 11:46 Dose: 40 meq Documented by: - Exam General: Alert, Oriented, Cooperative, No Acute Distress Lungs: Clear to Auscultation, Normal Respiratory Effort Cardiovascular: Regular Rate, Regular Rhythm GI/Abdominal Exam: Normal Bowel Sounds, Soft, Non-Tender, No Distention Extremities: Normal Inspection, No Pedal Edema Sepsis Event Note - Evaluation Sepsis Screening Result: No Definite Risk - Focused Exam Vital Signs: Vital Signs Temp Pulse Resp BP Pulse Ox 06/11/20 04:00 36.4 C 64 16 150/67 H 95 06/11/20 00:00 35.8 C L 68 14 131/58 L 95 - Problem List & Annotations (1) Hypoxemia SNOMED Code(s): 919062346 Code(s): R09.02 - HYPOXEMIA Status: Acute Current Visit: Yes (2) COVID-19 SNOMED Code(s): 072806838 Code(s): U07.1 - COVID-19 Status: Acute Current Visit: Yes (3) Parkinson disease SNOMED Code(s): 47786959 Code(s): G20 - PARKINSON'S DISEASE Status: Acute Current Visit: Yes (4) HTN (hypertension) SNOMED Code(s): 15470723 Code(s): I10 - ESSENTIAL (PRIMARY) HYPERTENSION Status: Acute Current Visit: No - Problem List Review Problem List Initiated/Reviewed/Updated: No - Plan Plan:: Assessment and Plan: 1. Acute hypoxic respiratory failure secondary to COVID19: - Continue supplemental oxygen PRN. Patient currently on 6 L. Continue treatment with Remdesivir, dexamethasone, levaquin and albuterol prn. Patient received 1 unit of convalescent plasma. Will transfuse 2nd unit of convalescent plasma today. - Patient given fact sheets on convalescent plasma and remdesivir and explained their EUA. Benefits and risks were explained to patient and she consented for treatment. 2. DVT prophylaxis: - Lovenox 40 mg subcut qd. 3. Past medical history of HTN and Parkinson's disease: - Will continue home medications.
[2020-06-11] MEDS: Levofloxacin 500 MG Tab PO SCH (09:32)
[2020-06-11] MEDS: Pantoprazole 40 MG Tab.CR PO SCH (09:32)
[2020-06-11] MEDS: Metoprolol Succinate 50 MG Tab.ER PO SCH (09:32)
[2020-06-11] MEDS: Sertraline 50 MG Tab PO SCH (09:33)
[2020-06-11] MEDS: Dexamethasone 10 MG/ML SDV IVPUSH SCH (17:50)
[2020-06-11] MEDS: Enoxaparin 40 MG/0.4 ML Syringe SUBCUT SCH (17:51)
[2020-06-11] MEDS: REMDESIVIR (EUA) 100 MG in Sodium Chloride 0.9% 100 ML IV SCH (17:52)
[2020-06-11] MEDS: Albuterol HFA 18 Gm Inhaler INH PRN (21:59)
[2020-06-12] MEDS: Carbidopa/Levodopa 25-100 MG Tab PO SCH ×3 (05:34→21:59)
[2020-06-12] MEDS: FLUOROMETHOLONE 0.1% EYERT SCH ×3 (05:35→22:00)
[2020-06-12 07:22] LABS: BLOOD UREA NITROGEN,BUN 23 mg/dL (7.0-18.0); CARBON DIOXIDE,CO2 25.8 mmol/L (21.0-32.0); CHLORIDE,CL 104 mmol/L (98-107); GLUCOSE RANDOM 110 mg/dL (74-106); POTASSIUM,K 4.4 mmol/L (3.5-5.1); SODIUM,NA 139 mmol/L (136-145)
[2020-06-12] MEDS: Sertraline 50 MG Tab PO SCH (09:12)
[2020-06-12] MEDS: Pantoprazole 40 MG Tab.CR PO SCH (09:12)
[2020-06-12] MEDS: Metoprolol Succinate 50 MG Tab.ER PO SCH (09:13)
[2020-06-12] MEDS: Levofloxacin 500 MG Tab PO SCH (09:14)
--- NOTE | 2020-06-12 16:53 | PCM.PN ---
<Jai Perkins - Last Filed: 06/12/20 16:51> - General Info Date of Service: 06/12/20 Subjective Update: Reports shortness of breath improved. Still complains of mild cough. Has been ambulating. - Patient Data Vitals - Most Recent: Last Vital Signs Temp 36.3 C 06/12/20 16:04 Pulse 65 06/12/20 16:04 Resp 20 06/12/20 16:04 BP 127/51 L 06/12/20 16:04 Pulse Ox 91 L 06/12/20 16:04 Weight - Most Recent: 49.895 kg I&O - Last 24 Hours: Intake & Output 06/12/20 06/12/20 06/12/20 06:59 14:59 22:59 Intake Total 300 440 Output Total 300 700 Balance 0 -260 Lab Results Last 24 Hours: Laboratory Results - last 24 hr 06/12/20 06/12/20 Range/Units 06:42 06:42 WBC 6.43 (4.0-11.0) K/uL RBC 4.42 (4.30-5.90) M/uL Hgb 12.9 (12.0-16.0) g/dL Hct 40.5 (36.0-46.0) % MCV 91.6 (80.0-98.0) fL MCH 29.2 (27.0-32.0) pg MCHC 31.9 (31.0-37.0) g/dL RDW Std Deviation 49.2 (28.0-62.0) fl RDW Coeff of Bo 14 (11.0-15.0) % Plt Count 354 (150-400) K/uL MPV 10.10 (7.40-12.00) fL Neut % (Auto) 65.1 (48.0-80.0) % Lymph % (Auto) 23.3 (16.0-40.0) % Hill % (Auto) 11.4 (0.0-15.0) % Eos % (Auto) 0.0 (0.0-7.0) % Baso % (Auto) 0.2 (0.0-1.5) % Neut # (Auto) 4.2 (1.4-5.7) K/uL Lymph # (Auto) 1.5 (0.6-2.4) K/uL Hill # (Auto) 0.7 (0.0-0.8) K/uL Eos # (Auto) 0.0 (0.0-0.7) K/uL Baso # (Auto) 0.0 (0.0-0.1) K/uL Nucleated RBC % 0.0 /100WBC Nucleated RBCs # 0 K/uL Sodium 139 (136-145) mmol/L Potassium 4.4 (3.5-5.1) mmol/L Chloride 104 (98-107) mmol/L Carbon Dioxide 25.8 (21.0-32.0) mmol/L BUN 23 H (7.0-18.0) mg/dL Creatinine 0.5 L (0.6-1.0) mg/dL Est Cr Clr Drug Dosing 73.97 mL/min Estimated GFR (MDRD) > 60.0 ml/min Glucose 110 H (74-106) mg/dL Calcium 8.1 L (8.5-10.1) mg/dL Total Bilirubin 0.4 (0.2-1.0) mg/dL AST 20 (15-37) IU/L ALT 8 L (14-63) IU/L Alkaline Phosphatase 70 (46-116) U/L Total Protein 5.6 L (6.4-8.2) g/dL Albumin 2.4 L (3.4-5.0) g/dL Globulin 3.2 (2.6-4.0) g/dL Albumin/Globulin Ratio 0.8 L (0.9-1.6) Chay Results Last 24 Hours: Microbiology 06/09/20 15:12 Aerobic Blood Culture - Preliminary Blood - Venous - Lab Draw NO GROWTH AFTER 3 DAYS Anaerobic Blood Culture - Final 06/09/20 14:27 Aerobic Blood Culture - Preliminary Blood - Venous NO GROWTH AFTER 3 DAYS Anaerobic Blood Culture - Preliminary NO GROWTH AFTER 3 DAYS Med Orders - Current: Current Medications Acetaminophen (Tylenol) 650 mg PO Q4H PRN PRN Reason: Pain (Mild 1-3)/fever Albuterol (Ventolin Hfa) 8.5 gm INH Q8H PRN PRN Reason: Wheezing Last Admin: 06/11/20 21:59 Dose: 1 puff Documented by: Carbidopa/Levodopa (Sinemet 25-100 Mg) 1 tab PO TID [facility] Last Admin: 06/12/20 14:12 Dose: 1 tab Documented by: Dexamethasone (Dexamethasone) 6 mg IVPUSH Q24H [facility] Last Admin: 06/11/20 17:50 Dose: 6 mg Documented by: Enoxaparin Sodium (Lovenox) 40 mg SUBCUT Q24H [facility] Last Admin: 06/11/20 17:51 Dose: 40 mg Documented by: Remdesivir 100 mg/ Sodium (Chloride) 100 mls @ 100 mls/hr IV Q24H [facility] Stop: 06/13/20 18:59 Last Admin: 06/11/20 17:52 Dose: 100 mls/hr Documented by: Levofloxacin (Levaquin) 500 mg PO DAILY [facility] Last Admin: 06/12/20 09:14 Dose: 500 mg Documented by: Metoprolol Succinate (Toprol Xl) 50 mg PO DAILY [facility] Last Admin: 06/12/20 09:13 Dose: 50 mg Documented by: Pantoprazole Sodium (Protonix) 40 mg PO DAILY [facility] Last Admin: 06/12/20 09:12 Dose: 40 mg Documented by: Fluorometholone 0.1% Ophth Soln 10 Ml Bottle 1 each EYERT TID [facility] Last Admin: 06/12/20 14:12 Dose: 1 each Documented by: Sertraline HCl (Zoloft) 75 mg PO DAILY [facility] Last Admin: 06/12/20 09:12 Dose: 75 mg Documented by: Discontinued Medications Albuterol (Proventil Hfa) 8.5 gm INH Q8HR PRN PRN Reason: Wheezing Albuterol/Ipratropium (Duoneb 3.0-0.5 Mg/3 Ml) 3 ml NEB ONETIME ONE Stop: 06/09/20 14:41 Last Admin: 06/09/20 14:52 Dose: 3 ml Documented by: Remdesivir 200 mg/ Sodium (Chloride) 250 mls @ 250 mls/hr IV ONETIME ONE Stop: 06/09/20 17:50 Last Admin: 06/09/20 20:09 Dose: 250 mls/hr Documented by: Non-Formulary Medication (Carbidopa/Levodopa [Carbidopa-Levo 25-100 Mg Odt]) 1 tab PO TID [facility] Last Admin: 06/10/20 11:01 Dose: Not Given Documented by: Potassium Chloride (Klor-Con M20) 40 meq PO ONETIME ONE Stop: 06/10/20 10:35 Last Admin: 06/10/20 11:46 Dose: 40 meq Documented by: - Exam General: Alert, Oriented, Cooperative, No Acute Distress Lungs: Clear to Auscultation, Normal Respiratory Effort Cardiovascular: Regular Rate, Regular Rhythm GI/Abdominal Exam: Normal Bowel Sounds, Soft, Non-Tender, No Distention Extremities: Normal Inspection, No Pedal Edema Sepsis Event Note - Evaluation Sepsis Screening Result: No Definite Risk - Focused Exam Vital Signs: Vital Signs Temp Pulse Pulse Resp BP BP Pulse Ox 06/12/20 16:04 36.3 C 65 20 127/51 L 91 L 06/12/20 11:44 36.4 C 68 20 148/57 H 92 L 06/12/20 09:13 66 135/48 L 06/12/20 08:58 36.7 C 66 20 135/48 L 92 L 06/12/20 07:00 Pulse Ox 06/12/20 16:04 06/12/20 11:44 06/12/20 09:13 06/12/20 08:58 06/12/20 07:00 98 - Problem List & Annotations (1) Hypoxemia SNOMED Code(s): 309002702 Code(s): R09.02 - HYPOXEMIA Status: Acute Current Visit: Yes (2) COVID-19 SNOMED Code(s): 468577952 Code(s): U07.1 - COVID-19 Status: Acute Current Visit: Yes (3) Parkinson disease SNOMED Code(s): 54235257 Code(s): G20 - PARKINSON'S DISEASE Status: Acute Current Visit: Yes (4) HTN (hypertension) SNOMED Code(s): 96502515 Code(s): I10 - ESSENTIAL (PRIMARY) HYPERTENSION Status: Acute Current Visit: No - Problem List Review Problem List Initiated/Reviewed/Updated: Yes - Plan Plan:: Assessment and Plan: 1. Acute hypoxic respiratory failure secondary to COVID19: - Patient on 4 L of oxygen this AM. Continue supplemental oxygen PRN. Continue treatment with Remdesivir, dexamethasone, levaquin and albuterol prn. Patient has received 2 units of convalescent plasma. - Patient given fact sheets on convalescent plasma and remdesivir and explained their EUA. Benefits and risks were explained to patient and she consented for treatment. 2. DVT prophylaxis: - Lovenox 40 mg subcut qd. 3. Past medical history of HTN and Parkinson's disease: - Will continue home medications. <OzzyOmarwayne - Last Filed: 06/14/20 12:58> - Patient Data Vitals - Most Recent: Last Vital Signs Temp 36.3 C 06/14/20 12:24 Pulse 69 06/14/20 12:24 Resp 16 06/14/20 12:24 BP 109/50 L 06/14/20 12:24 Pulse Ox 93 L 06/14/20 12:24 I&O - Last 24 Hours: Intake & Output 06/13/20 06/14/20 06/14/20 22:59 06:59 14:59 Intake Total 360 100 Output Total 800 325 Balance -440 -225 Lab Results Last 24 Hours: Laboratory Results - last 24 hr 06/14/20 06/14/20 Range/Units 06:40 06:40 WBC 7.03 (4.0-11.0) K/uL RBC 4.65 (4.30-5.90) M/uL Hgb 13.6 (12.0-16.0) g/dL Hct 42.0 (36.0-46.0) % MCV 90.3 (80.0-98.0) fL MCH 29.2 (27.0-32.0) pg MCHC 32.4 (31.0-37.0) g/dL RDW Std Deviation 46.8 (28.0-62.0) fl RDW Coeff of Bo 14 (11.0-15.0) % Plt Count 407 H (150-400) K/uL MPV 10.10 (7.40-12.00) fL Neut % (Auto) 62.9 (48.0-80.0) % Lymph % (Auto) 29.2 (16.0-40.0) % Hill % (Auto) 7.8 (0.0-15.0) % Eos % (Auto) 0.1 (0.0-7.0) % Baso % (Auto) 0.0 (0.0-1.5) % Neut # (Auto) 4.4 (1.4-5.7) K/uL Lymph # (Auto) 2.1 (0.6-2.4) K/uL Hill # (Auto) 0.6 (0.0-0.8) K/uL Eos # (Auto) 0.0 (0.0-0.7) K/uL Baso # (Auto) 0.0 (0.0-0.1) K/uL Nucleated RBC % 0.0 /100WBC Nucleated RBCs # 0 K/uL Sodium 137 (136-145) mmol/L Potassium 4.2 (3.5-5.1) mmol/L Chloride 103 (98-107) mmol/L Carbon Dioxide 28.2 (21.0-32.0) mmol/L BUN 22 H (7.0-18.0) mg/dL Creatinine 0.6 (0.6-1.0) mg/dL Est Cr Clr Drug Dosing 61.64 mL/min Estimated GFR (MDRD) > 60.0 ml/min Glucose 107 H (74-106) mg/dL Calcium 8.3 L (8.5-10.1) mg/dL Total Bilirubin 0.5 (0.2-1.0) mg/dL AST 14 L (15-37) IU/L ALT 14 (14-63) IU/L Alkaline Phosphatase 71 (46-116) U/L Total Protein 6.1 L (6.4-8.2) g/dL Albumin 2.5 L (3.4-5.0) g/dL Globulin 3.6 (2.6-4.0) g/dL Albumin/Globulin Ratio 0.7 L (0.9-1.6) Chay Results Last 24 Hours: Microbiology 06/09/20 15:12 Aerobic Blood Culture - Preliminary Blood - Venous - Lab Draw NO GROWTH AFTER 4 DAYS Anaerobic Blood Culture - Final 06/09/20 14:27 Aerobic Blood Culture - Preliminary Blood - Venous NO GROWTH AFTER 4 DAYS Anaerobic Blood Culture - Preliminary NO GROWTH AFTER 4 DAYS Med Orders - Current: Current Medications Acetaminophen (Tylenol) 650 mg PO Q4H PRN PRN Reason: Pain (Mild 1-3)/fever Albuterol (Ventolin Hfa) 8.5 gm INH Q8H PRN PRN Reason: Wheezing Last Admin: 06/13/20 05:48 Dose: 1 puff Documented by: Carbidopa/Levodopa (Sinemet 25-100 Mg) 1 tab PO TID [facility] Last Admin: 06/14/20 06:32 Dose: 1 tab Documented by: Dexamethasone (Dexamethasone) 6 mg PO DAILY@1800 [facility] Enoxaparin Sodium (Lovenox) 40 mg SUBCUT Q24H [facility] Last Admin: 06/13/20 18:08 Dose: 40 mg Documented by: Levofloxacin (Levaquin) 500 mg PO DAILY [facility] Last Admin: 06/14/20 09:28 Dose: 500 mg Documented by: Metoprolol Succinate (Toprol Xl) 50 mg PO DAILY [facility] Last Admin: 06/14/20 09:29 Dose: 50 mg Documented by: Pantoprazole Sodium (Protonix) 40 mg PO DAILY [facility] Last Admin: 06/14/20 09:28 Dose: 40 mg Documented by: Fluorometholone 0.1% Ophth Soln 10 Ml Bottle 1 each EYERT TID [facility] Last Admin: 06/14/20 06:32 Dose: 1 each Documented by: Sertraline HCl (Zoloft) 75 mg PO DAILY [facility] Last Admin: 06/14/20 09:28 Dose: 75 mg Documented by: Discontinued Medications Albuterol (Proventil Hfa) 8.5 gm INH Q8HR PRN PRN Reason: Wheezing Albuterol/Ipratropium (Duoneb 3.0-0.5 Mg/3 Ml) 3 ml NEB ONETIME ONE Stop: 06/09/20 14:41 Last Admin: 06/09/20 14:52 Dose: 3 ml Documented by: Dexamethasone (Dexamethasone) 6 mg IVPUSH Q24H [facility] Last Admin: 06/13/20 17:46 Dose: 6 mg Documented by: Remdesivir 100 mg/ Sodium (Chloride) 100 mls @ 100 mls/hr IV Q24H [facility] Stop: 06/13/20 18:59 Last Admin: 06/13/20 17:44 Dose: 100 mls/hr Documented by: Remdesivir 200 mg/ Sodium (Chloride) 250 mls @ 250 mls/hr IV ONETIME ONE Stop: 06/09/20 17:50 Last Admin: 06/09/20 20:09 Dose: 250 mls/hr Documented by: Non-Formulary Medication (Carbidopa/Levodopa [Carbidopa-Levo 25-100 Mg Odt]) 1 tab PO TID [facility] Last Admin: 06/10/20 11:01 Dose: Not Given Documented by: Potassium Chloride (Klor-Con M20) 40 meq PO ONETIME ONE Stop: 06/10/20 10:35 Last Admin: 06/10/20 11:46 Dose: 40 meq Documented by: Sepsis Event Note - Focused Exam Vital Signs: Vital Signs Temp Pulse Pulse Resp BP BP Pulse Ox 06/14/20 12:24 36.3 C 69 16 109/50 L 93 L 06/14/20 09:29 64 137/64 06/14/20 09:21 36.6 C 64 18 137/64 95 06/14/20 07:00 06/14/20 03:35 36.6 C 60 14 133/63 95 Pulse Ox 06/14/20 12:24 06/14/20 09:29 06/14/20 09:21 06/14/20 07:00 95 06/14/20 03:35 - My Orders Last 24 Hours: My Active Orders 06/14/20 18:00 dexAMETHasone 6 mg PO DAILY@1800 - Plan Plan:: I have seen and evaluated the patient and agree with the residents note unless specified in my note
[2020-06-12] MEDS: Dexamethasone 10 MG/ML SDV IVPUSH SCH (17:26)
[2020-06-12] MEDS: Enoxaparin 40 MG/0.4 ML Syringe SUBCUT SCH (17:26)
[2020-06-12] MEDS: REMDESIVIR (EUA) 100 MG in Sodium Chloride 0.9% 100 ML IV SCH (17:30)
[2020-06-13] MEDS: Carbidopa/Levodopa 25-100 MG Tab PO SCH ×3 (05:31→22:16)
[2020-06-13] MEDS: FLUOROMETHOLONE 0.1% EYERT SCH ×3 (05:31→22:16)
[2020-06-13] MEDS: Albuterol HFA 18 Gm Inhaler INH PRN (05:48)
[2020-06-13 07:08] LABS: BLOOD UREA NITROGEN,BUN 21 mg/dL (7.0-18.0); CHLORIDE,CL 102 mmol/L (98-107); GLUCOSE RANDOM 115 mg/dL (74-106); POTASSIUM,K 4.4 mmol/L (3.5-5.1); SODIUM,NA 136 mmol/L (136-145)
[2020-06-13] MEDS: Levofloxacin 500 MG Tab PO SCH (08:25)
[2020-06-13] MEDS: Metoprolol Succinate 50 MG Tab.ER PO SCH (08:25)
[2020-06-13] MEDS: Pantoprazole 40 MG Tab.CR PO SCH (08:26)
[2020-06-13] MEDS: Sertraline 50 MG Tab PO SCH (08:26)
--- NOTE | 2020-06-13 08:32 | PCM.SN.2 ---
#1 Interpretation EKG Date: 06/09/20 Time: 14:30 Rhythm: Other (Sinus tachycardia) Rate (Beats/Min): 106 [place]: Normal P-Wave: Present QRS: Normal (QRS <120 m[address]) [address]-T: Normal EKG Interpretation Comments: Suboptimal tracing - significant wandering baseline limits interpretation. No obvious acute ischemic pattern. This ECG was presented for my interpretation retrospectively by the hospital HIM/medical records department, and was not presented for my review in real-time by the treating mid-level provider.
--- NOTE | 2020-06-13 14:14 | PCM.PN ---
<Jai Perkins - Last Filed: 06/13/20 14:13> - General Info Date of Service: 06/13/20 Subjective Update: Patient on 3.5 L this morning. Reports SOB improved and minimal cough. - Patient Data Vitals - Most Recent: Last Vital Signs Temp 36.1 C 06/13/20 11:51 Pulse 68 06/13/20 11:51 Resp 18 06/13/20 11:51 BP 120/50 L 06/13/20 11:51 Pulse Ox 92 L 06/13/20 11:51 Weight - Most Recent: 49.895 kg I&O - Last 24 Hours: Intake & Output 06/12/20 06/13/20 06/13/20 22:59 06:59 14:59 Intake Total 540 500 Output Total 700 400 Balance -160 100 Lab Results Last 24 Hours: Laboratory Results - last 24 hr 06/13/20 06/13/20 Range/Units 05:55 05:55 WBC 7.07 (4.0-11.0) K/uL RBC 4.76 (4.30-5.90) M/uL Hgb 13.9 (12.0-16.0) g/dL Hct 43.3 (36.0-46.0) % MCV 91.0 (80.0-98.0) fL MCH 29.2 (27.0-32.0) pg MCHC 32.1 (31.0-37.0) g/dL RDW Std Deviation 47.4 (28.0-62.0) fl RDW Coeff of Bo 14 (11.0-15.0) % Plt Count 419 H (150-400) K/uL MPV 10.20 (7.40-12.00) fL Neut % (Auto) 56.9 (48.0-80.0) % Lymph % (Auto) 33.2 (16.0-40.0) % [place] % (Auto) 9.8 (0.0-15.0) % Eos % (Auto) 0.0 (0.0-7.0) % Baso % (Auto) 0.1 (0.0-1.5) % Neut # (Auto) 4.0 (1.4-5.7) K/uL Lymph # (Auto) 2.4 (0.6-2.4) K/uL [place] # (Auto) 0.7 (0.0-0.8) K/uL Eos # (Auto) 0.0 (0.0-0.7) K/uL Baso # (Auto) 0.0 (0.0-0.1) K/uL Nucleated RBC % 0.0 /100WBC Nucleated RBCs # 0 K/uL Sodium 136 (136-145) mmol/L Potassium 4.4 (3.5-5.1) mmol/L Chloride 102 (98-107) mmol/L Carbon Dioxide 29.0 (21.0-32.0) mmol/L BUN 21 H (7.0-18.0) mg/dL Creatinine 0.6 (0.6-1.0) mg/dL Est Cr Clr Drug Dosing 61.64 mL/min Estimated GFR (MDRD) > 60.0 ml/min Glucose 115 H (74-106) mg/dL Calcium 8.2 L (8.5-10.1) mg/dL Total Bilirubin 0.5 (0.2-1.0) mg/dL AST 16 (15-37) IU/L ALT 14 (14-63) IU/L Alkaline Phosphatase 75 (46-116) U/L Total Protein 6.3 L (6.4-8.2) g/dL Albumin 2.7 L (3.4-5.0) g/dL Globulin 3.6 (2.6-4.0) g/dL Albumin/Globulin Ratio 0.8 L (0.9-1.6) Chay Results Last 24 Hours: Microbiology 06/09/20 15:12 Aerobic Blood Culture - Preliminary Blood - Venous - Lab Draw NO GROWTH AFTER 3 DAYS Anaerobic Blood Culture - Final 06/09/20 14:27 Aerobic Blood Culture - Preliminary Blood - Venous NO GROWTH AFTER 3 DAYS Anaerobic Blood Culture - Preliminary NO GROWTH AFTER 3 DAYS Med Orders - Current: Current Medications Acetaminophen (Tylenol) 650 mg PO Q4H PRN PRN Reason: Pain (Mild 1-3)/fever Albuterol (Ventolin Hfa) 8.5 gm INH Q8H PRN PRN Reason: Wheezing Last Admin: 06/13/20 05:48 Dose: 1 puff Documented by: Carbidopa/Levodopa (Sinemet 25-100 Mg) 1 tab PO TID [facility] Last Admin: 06/13/20 13:54 Dose: 1 tab Documented by: Dexamethasone (Dexamethasone) 6 mg IVPUSH Q24H [facility] Last Admin: 06/12/20 17:26 Dose: 6 mg Documented by: Enoxaparin Sodium (Lovenox) 40 mg SUBCUT Q24H [facility] Last Admin: 06/12/20 17:26 Dose: 40 mg Documented by: Remdesivir 100 mg/ Sodium (Chloride) 100 mls @ 100 mls/hr IV Q24H [facility] Stop: 06/13/20 18:59 Last Admin: 06/12/20 17:30 Dose: 100 mls/hr Documented by: Levofloxacin (Levaquin) 500 mg PO DAILY [facility] Last Admin: 06/13/20 08:25 Dose: 500 mg Documented by: Metoprolol Succinate (Toprol Xl) 50 mg PO DAILY [facility] Last Admin: 06/13/20 08:25 Dose: 50 mg Documented by: Pantoprazole Sodium (Protonix) 40 mg PO DAILY [facility] Last Admin: 06/13/20 08:26 Dose: 40 mg Documented by: Fluorometholone 0.1% Ophth Soln 10 Ml Bottle 1 each EYERT TID [facility] Last Admin: 06/13/20 13:54 Dose: 1 each Documented by: Sertraline HCl (Zoloft) 75 mg PO DAILY [facility] Last Admin: 06/13/20 08:26 Dose: 75 mg Documented by: Discontinued Medications Albuterol (Proventil Hfa) 8.5 gm INH Q8HR PRN PRN Reason: Wheezing Albuterol/Ipratropium (Duoneb 3.0-0.5 Mg/3 Ml) 3 ml NEB ONETIME ONE Stop: 06/09/20 14:41 Last Admin: 06/09/20 14:52 Dose: 3 ml Documented by: Remdesivir 200 mg/ Sodium (Chloride) 250 mls @ 250 mls/hr IV ONETIME ONE Stop: 06/09/20 17:50 Last Admin: 06/09/20 20:09 Dose: 250 mls/hr Documented by: Non-Formulary Medication (Carbidopa/Levodopa [Carbidopa-Levo 25-100 Mg Odt]) 1 tab PO TID [facility] Last Admin: 06/10/20 11:01 Dose: Not Given Documented by: Potassium Chloride (Klor-Con M20) 40 meq PO ONETIME ONE Stop: 06/10/20 10:35 Last Admin: 06/10/20 11:46 Dose: 40 meq Documented by: - Exam General: Alert, Oriented, Cooperative, No Acute Distress Lungs: Clear to Auscultation, Normal Respiratory Effort Cardiovascular: Regular Rate, Regular Rhythm GI/Abdominal Exam: Normal Bowel Sounds, Soft, Non-Tender, No Distention Extremities: Normal Inspection, No Pedal Edema Sepsis Event Note - Evaluation Sepsis Screening Result: No Definite Risk - Focused Exam Vital Signs: Vital Signs Temp Pulse Pulse Resp BP BP Pulse Ox 06/13/20 11:51 36.1 C 68 18 120/50 L 92 L 06/13/20 08:25 65 147/62 H 06/13/20 08:22 36.2 C 65 19 147/62 H 94 L 06/13/20 03:09 36.1 C 60 18 134/50 L 95 - Problem List & Annotations (1) Hypoxemia SNOMED Code(s): 722579939 Code(s): R09.02 - HYPOXEMIA Status: Acute Current Visit: Yes (2) COVID-19 SNOMED Code(s): 872516985 Code(s): U07.1 - COVID-19 Status: Acute Current Visit: Yes (3) Parkinson disease SNOMED Code(s): 47493107 Code(s): G20 - PARKINSON'S DISEASE Status: Acute Current Visit: Yes (4) HTN (hypertension) SNOMED Code(s): 21864776 Code(s): I10 - ESSENTIAL (PRIMARY) HYPERTENSION Status: Acute Current Visit: No - Problem List Review Problem List Initiated/Reviewed/Updated: Yes - My Orders Last 24 Hours: My Active Orders 06/14/20 05:11 CBC WITH AUTO DIFF [HEME] AM CMP [COMPREHENSIVE METABOLIC PN,CMP] [CHEM] AM - Plan Plan:: Assessment and Plan: 1. Acute hypoxic respiratory failure secondary to COVID19: - Patient on 3.5 L of oxygen this AM, will continue to wean oxygen. Continue treatment with Remdesivir, dexamethasone, levaquin and albuterol prn. Patient has received 2 units of convalescent plasma. - Patient given fact sheets on convalescent plasma and remdesivir and explained their EUA. Benefits and risks were explained to patient and she consented for treatment. 2. DVT prophylaxis: - Lovenox 40 mg subcut qd. 3. Past medical history of HTN and Parkinson's disease: - Will continue home medications. <Promise Preciado - Last Filed: 06/14/20 13:22> - Patient Data Vitals - Most Recent: Last Vital Signs Temp 36.3 C 06/14/20 12:24 Pulse 69 06/14/20 12:24 Resp 16 06/14/20 12:24 BP 109/50 L 06/14/20 12:24 Pulse Ox 93 L 06/14/20 12:24 I&O - Last 24 Hours: Intake & Output 06/13/20 06/14/20 06/14/20 22:59 06:59 14:59 Intake Total 360 100 Output Total 800 325 Balance -440 -225 Lab Results Last 24 Hours: Laboratory Results - last 24 hr 06/14/20 06/14/20 Range/Units 06:40 06:40 WBC 7.03 (4.0-11.0) K/uL RBC 4.65 (4.30-5.90) M/uL Hgb 13.6 (12.0-16.0) g/dL Hct 42.0 (36.0-46.0) % MCV 90.3 (80.0-98.0) fL MCH 29.2 (27.0-32.0) pg MCHC 32.4 (31.0-37.0) g/dL RDW Std Deviation 46.8 (28.0-62.0) fl RDW Coeff of Bo 14 (11.0-15.0) % Plt Count 407 H (150-400) K/uL MPV 10.10 (7.40-12.00) fL Neut % (Auto) 62.9 (48.0-80.0) % Lymph % (Auto) 29.2 (16.0-40.0) % [place] % (Auto) 7.8 (0.0-15.0) % Eos % (Auto) 0.1 (0.0-7.0) % Baso % (Auto) 0.0 (0.0-1.5) % Neut # (Auto) 4.4 (1.4-5.7) K/uL Lymph # (Auto) 2.1 (0.6-2.4) K/uL [place] # (Auto) 0.6 (0.0-0.8) K/uL Eos # (Auto) 0.0 (0.0-0.7) K/uL Baso # (Auto) 0.0 (0.0-0.1) K/uL Nucleated RBC % 0.0 /100WBC Nucleated RBCs # 0 K/uL Sodium 137 (136-145) mmol/L Potassium 4.2 (3.5-5.1) mmol/L Chloride 103 (98-107) mmol/L Carbon Dioxide 28.2 (21.0-32.0) mmol/L BUN 22 H (7.0-18.0) mg/dL Creatinine 0.6 (0.6-1.0) mg/dL Est Cr Clr Drug Dosing 61.64 mL/min Estimated GFR (MDRD) > 60.0 ml/min Glucose 107 H (74-106) mg/dL Calcium 8.3 L (8.5-10.1) mg/dL Total Bilirubin 0.5 (0.2-1.0) mg/dL AST 14 L (15-37) IU/L ALT 14 (14-63) IU/L Alkaline Phosphatase 71 (46-116) U/L Total Protein 6.1 L (6.4-8.2) g/dL Albumin 2.5 L (3.4-5.0) g/dL Globulin 3.6 (2.6-4.0) g/dL Albumin/Globulin Ratio 0.7 L (0.9-1.6) Chay Results Last 24 Hours: Microbiology 06/09/20 15:12 Aerobic Blood Culture - Preliminary Blood - Venous - Lab Draw NO GROWTH AFTER 4 DAYS Anaerobic Blood Culture - Final 06/09/20 14:27 Aerobic Blood Culture - Preliminary Blood - Venous NO GROWTH AFTER 4 DAYS Anaerobic Blood Culture - Preliminary NO GROWTH AFTER 4 DAYS Med Orders - Current: Current Medications Acetaminophen (Tylenol) 650 mg PO Q4H PRN PRN Reason: Pain (Mild 1-3)/fever Albuterol (Ventolin Hfa) 8.5 gm INH Q8H PRN PRN Reason: Wheezing Last Admin: 06/13/20 05:48 Dose: 1 puff Documented by: Carbidopa/Levodopa (Sinemet 25-100 Mg) 1 tab PO TID [facility] Last Admin: 06/14/20 06:32 Dose: 1 tab Documented by: Dexamethasone (Dexamethasone) 6 mg PO DAILY@1800 [facility] Enoxaparin Sodium (Lovenox) 40 mg SUBCUT Q24H [facility] Last Admin: 06/13/20 18:08 Dose: 40 mg Documented by: Levofloxacin (Levaquin) 500 mg PO DAILY [facility] Last Admin: 06/14/20 09:28 Dose: 500 mg Documented by: Metoprolol Succinate (Toprol Xl) 50 mg PO DAILY [facility] Last Admin: 06/14/20 09:29 Dose: 50 mg Documented by: Pantoprazole Sodium (Protonix) 40 mg PO DAILY [facility] Last Admin: 06/14/20 09:28 Dose: 40 mg Documented by: Fluorometholone 0.1% Ophth Soln 10 Ml Bottle 1 each EYERT TID [facility] Last Admin: 06/14/20 06:32 Dose: 1 each Documented by: Sertraline HCl (Zoloft) 75 mg PO DAILY [facility] Last Admin: 06/14/20 09:28 Dose: 75 mg Documented by: Discontinued Medications Albuterol (Proventil Hfa) 8.5 gm INH Q8HR PRN PRN Reason: Wheezing Albuterol/Ipratropium (Duoneb 3.0-0.5 Mg/3 Ml) 3 ml NEB ONETIME ONE Stop: 06/09/20 14:41 Last Admin: 06/09/20 14:52 Dose: 3 ml Documented by: Dexamethasone (Dexamethasone) 6 mg IVPUSH Q24H [facility] Last Admin: 06/13/20 17:46 Dose: 6 mg Documented by: Remdesivir 100 mg/ Sodium (Chloride) 100 mls @ 100 mls/hr IV Q24H [facility] Stop: 06/13/20 18:59 Last Admin: 06/13/20 17:44 Dose: 100 mls/hr Documented by: Remdesivir 200 mg/ Sodium (Chloride) 250 mls @ 250 mls/hr IV ONETIME ONE Stop: 06/09/20 17:50 Last Admin: 06/09/20 20:09 Dose: 250 mls/hr Documented by: Non-Formulary Medication (Carbidopa/Levodopa [Carbidopa-Levo 25-100 Mg Odt]) 1 tab PO TID [facility] Last Admin: 06/10/20 11:01 Dose: Not Given Documented by: Potassium Chloride (Klor-Con M20) 40 meq PO ONETIME ONE Stop: 06/10/20 10:35 Last Admin: 06/10/20 11:46 Dose: 40 meq Documented by: Sepsis Event Note - Focused Exam Vital Signs: Vital Signs Temp Pulse Pulse Resp BP BP Pulse Ox 06/14/20 12:24 36.3 C 69 16 109/50 L 93 L 06/14/20 09:29 64 137/64 06/14/20 09:21 36.6 C 64 18 137/64 95 06/14/20 07:00 06/14/20 03:35 36.6 C 60 14 133/63 95 Pulse Ox 06/14/20 12:24 06/14/20 09:29 06/14/20 09:21 06/14/20 07:00 95 06/14/20 03:35 - My Orders Last 24 Hours: My Active Orders 06/14/20 18:00 dexAMETHasone 6 mg PO DAILY@1800 - Plan Plan:: I have seen and evaluated the patient and agree with the residents note unless specified in my note
[2020-06-13] MEDS: REMDESIVIR (EUA) 100 MG in Sodium Chloride 0.9% 100 ML IV SCH (17:44)
[2020-06-13] MEDS: Dexamethasone 10 MG/ML SDV IVPUSH SCH (17:46)
[2020-06-13] MEDS: Enoxaparin 40 MG/0.4 ML Syringe SUBCUT SCH (18:08)
[2020-06-14] MEDS: Carbidopa/Levodopa 25-100 MG Tab PO SCH ×2 (06:32→13:57)
[2020-06-14] MEDS: FLUOROMETHOLONE 0.1% EYERT SCH ×2 (06:32→13:57)
[2020-06-14 07:38] LABS: BLOOD UREA NITROGEN,BUN 22 mg/dL (7.0-18.0); CARBON DIOXIDE,CO2 28.2 mmol/L (21.0-32.0); CHLORIDE,CL 103 mmol/L (98-107); GLUCOSE RANDOM 107 mg/dL (74-106); POTASSIUM,K 4.2 mmol/L (3.5-5.1); SODIUM,NA 137 mmol/L (136-145)
[2020-06-14] MEDS: Levofloxacin 500 MG Tab PO SCH (09:28)
[2020-06-14] MEDS: Pantoprazole 40 MG Tab.CR PO SCH (09:28)
[2020-06-14] MEDS: Sertraline 50 MG Tab PO SCH (09:28)
[2020-06-14] MEDS: Metoprolol Succinate 50 MG Tab.ER PO SCH (09:29)
--- NOTE | 2020-06-14 12:46 | PCM.PN ---
<Jai Perkins - Last Filed: 06/14/20 12:44> - General Info Date of Service: 06/14/20 Subjective Update: Reports SOB and cough improving. Denies any fevers or chills overnight. Tolerating oral diet. - Patient Data Vitals - Most Recent: Last Vital Signs Temp 36.3 C 06/14/20 12:24 Pulse 69 06/14/20 12:24 Resp 16 06/14/20 12:24 BP 109/50 L 06/14/20 12:24 Pulse Ox 93 L 06/14/20 12:24 Weight - Most Recent: 49.895 kg I&O - Last 24 Hours: Intake & Output 06/13/20 06/14/20 06/14/20 22:59 06:59 14:59 Intake Total 360 100 Output Total 800 325 Balance -440 -225 Lab Results Last 24 Hours: Laboratory Results - last 24 hr 06/14/20 06/14/20 Range/Units 06:40 06:40 WBC 7.03 (4.0-11.0) K/uL RBC 4.65 (4.30-5.90) M/uL Hgb 13.6 (12.0-16.0) g/dL Hct 42.0 (36.0-46.0) % MCV 90.3 (80.0-98.0) fL MCH 29.2 (27.0-32.0) pg MCHC 32.4 (31.0-37.0) g/dL RDW Std Deviation 46.8 (28.0-62.0) fl RDW Coeff of Bo 14 (11.0-15.0) % Plt Count 407 H (150-400) K/uL MPV 10.10 (7.40-12.00) fL Neut % (Auto) 62.9 (48.0-80.0) % Lymph % (Auto) 29.2 (16.0-40.0) % [place] % (Auto) 7.8 (0.0-15.0) % Eos % (Auto) 0.1 (0.0-7.0) % Baso % (Auto) 0.0 (0.0-1.5) % Neut # (Auto) 4.4 (1.4-5.7) K/uL Lymph # (Auto) 2.1 (0.6-2.4) K/uL [place] # (Auto) 0.6 (0.0-0.8) K/uL Eos # (Auto) 0.0 (0.0-0.7) K/uL Baso # (Auto) 0.0 (0.0-0.1) K/uL Nucleated RBC % 0.0 /100WBC Nucleated RBCs # 0 K/uL Sodium 137 (136-145) mmol/L Potassium 4.2 (3.5-5.1) mmol/L Chloride 103 (98-107) mmol/L Carbon Dioxide 28.2 (21.0-32.0) mmol/L BUN 22 H (7.0-18.0) mg/dL Creatinine 0.6 (0.6-1.0) mg/dL Est Cr Clr Drug Dosing 61.64 mL/min Estimated GFR (MDRD) > 60.0 ml/min Glucose 107 H (74-106) mg/dL Calcium 8.3 L (8.5-10.1) mg/dL Total Bilirubin 0.5 (0.2-1.0) mg/dL AST 14 L (15-37) IU/L ALT 14 (14-63) IU/L Alkaline Phosphatase 71 (46-116) U/L Total Protein 6.1 L (6.4-8.2) g/dL Albumin 2.5 L (3.4-5.0) g/dL Globulin 3.6 (2.6-4.0) g/dL Albumin/Globulin Ratio 0.7 L (0.9-1.6) Chay Results Last 24 Hours: Microbiology 06/09/20 15:12 Aerobic Blood Culture - Preliminary Blood - Venous - Lab Draw NO GROWTH AFTER 4 DAYS Anaerobic Blood Culture - Final 06/09/20 14:27 Aerobic Blood Culture - Preliminary Blood - Venous NO GROWTH AFTER 4 DAYS Anaerobic Blood Culture - Preliminary NO GROWTH AFTER 4 DAYS Med Orders - Current: Current Medications Acetaminophen (Tylenol) 650 mg PO Q4H PRN PRN Reason: Pain (Mild 1-3)/fever Albuterol (Ventolin Hfa) 8.5 gm INH Q8H PRN PRN Reason: Wheezing Last Admin: 06/13/20 05:48 Dose: 1 puff Documented by: Carbidopa/Levodopa (Sinemet 25-100 Mg) 1 tab PO TID [facility] Last Admin: 06/14/20 06:32 Dose: 1 tab Documented by: Dexamethasone (Dexamethasone) 6 mg PO DAILY@1800 [facility] Enoxaparin Sodium (Lovenox) 40 mg SUBCUT Q24H [facility] Last Admin: 06/13/20 18:08 Dose: 40 mg Documented by: Levofloxacin (Levaquin) 500 mg PO DAILY [facility] Last Admin: 06/14/20 09:28 Dose: 500 mg Documented by: Metoprolol Succinate (Toprol Xl) 50 mg PO DAILY [facility] Last Admin: 06/14/20 09:29 Dose: 50 mg Documented by: Pantoprazole Sodium (Protonix) 40 mg PO DAILY [facility] Last Admin: 06/14/20 09:28 Dose: 40 mg Documented by: Fluorometholone 0.1% Ophth Soln 10 Ml Bottle 1 each EYERT TID [facility] Last Admin: 06/14/20 06:32 Dose: 1 each Documented by: Sertraline HCl (Zoloft) 75 mg PO DAILY [facility] Last Admin: 06/14/20 09:28 Dose: 75 mg Documented by: Discontinued Medications Albuterol (Proventil Hfa) 8.5 gm INH Q8HR PRN PRN Reason: Wheezing Albuterol/Ipratropium (Duoneb 3.0-0.5 Mg/3 Ml) 3 ml NEB ONETIME ONE Stop: 06/09/20 14:41 Last Admin: 06/09/20 14:52 Dose: 3 ml Documented by: Dexamethasone (Dexamethasone) 6 mg IVPUSH Q24H [facility] Last Admin: 06/13/20 17:46 Dose: 6 mg Documented by: Remdesivir 100 mg/ Sodium (Chloride) 100 mls @ 100 mls/hr IV Q24H [facility] Stop: 06/13/20 18:59 Last Admin: 06/13/20 17:44 Dose: 100 mls/hr Documented by: Remdesivir 200 mg/ Sodium (Chloride) 250 mls @ 250 mls/hr IV ONETIME ONE Stop: 06/09/20 17:50 Last Admin: 06/09/20 20:09 Dose: 250 mls/hr Documented by: Non-Formulary Medication (Carbidopa/Levodopa [Carbidopa-Levo 25-100 Mg Odt]) 1 tab PO TID [facility] Last Admin: 06/10/20 11:01 Dose: Not Given Documented by: Potassium Chloride (Klor-Con M20) 40 meq PO ONETIME ONE Stop: 06/10/20 10:35 Last Admin: 06/10/20 11:46 Dose: 40 meq Documented by: - Exam General: Alert, Oriented, Cooperative, No Acute Distress Lungs: Clear to Auscultation, Normal Respiratory Effort Cardiovascular: Regular Rate, Regular Rhythm GI/Abdominal Exam: Normal Bowel Sounds, Soft, Non-Tender, No Distention Extremities: Normal Inspection, No Pedal Edema Sepsis Event Note - Evaluation Sepsis Screening Result: No Definite Risk - Focused Exam Vital Signs: Vital Signs Temp Pulse Pulse Resp BP BP Pulse Ox 06/14/20 12:24 36.3 C 69 16 109/50 L 93 L 06/14/20 09:29 64 137/64 06/14/20 09:21 36.6 C 64 18 137/64 95 06/14/20 07:00 06/14/20 03:35 36.6 C 60 14 133/63 95 Pulse Ox 06/14/20 12:24 06/14/20 09:29 06/14/20 09:21 06/14/20 07:00 95 06/14/20 03:35 - Problem List & Annotations (1) Hypoxemia SNOMED Code(s): 834428880 Code(s): R09.02 - HYPOXEMIA Status: Acute Current Visit: Yes (2) COVID-19 SNOMED Code(s): 342507272 Code(s): U07.1 - COVID-19 Status: Acute Current Visit: Yes (3) Parkinson disease SNOMED Code(s): 72259988 Code(s): G20 - PARKINSON'S DISEASE Status: Acute Current Visit: Yes (4) HTN (hypertension) SNOMED Code(s): 46614968 Code(s): I10 - ESSENTIAL (PRIMARY) HYPERTENSION Status: Acute Current Visit: No - Problem List Review Problem List Initiated/Reviewed/Updated: Yes - My Orders Last 24 Hours: My Active Orders 06/14/20 11:56 Consult to Physical Therapy [PT Evaluation and Treatment] [CONS] Routine - Plan Plan:: Assessment and Plan: 1. Acute hypoxic respiratory failure secondary to COVID19: - Patient on 2 L of oxygen this AM, will continue to wean oxygen today as tolerated. Patient completed 5-day course of Remdesivir and Levaquin. Continue dexamethasone and albuterol prn. Patient has received 2 units of convalescent plasma. - Patient given fact sheets on convalescent plasma and remdesivir and explained their EUA. Benefits and risks were explained to patient and she consented for treatment. - Will consult PT today for ambulation. 2. DVT prophylaxis: - Lovenox 40 mg subcut qd. 3. Past medical history of HTN and Parkinson's disease: - Will continue home medications. <Promise Preciado - Last Filed: 06/14/20 13:10> - Patient Data Vitals - Most Recent: Last Vital Signs Temp 36.3 C 06/14/20 12:24 Pulse 69 06/14/20 12:24 Resp 16 06/14/20 12:24 BP 109/50 L 06/14/20 12:24 Pulse Ox 93 L 06/14/20 12:24 I&O - Last 24 Hours: Intake & Output 06/13/20 06/14/20 06/14/20 22:59 06:59 14:59 Intake Total 360 100 Output Total 800 325 Balance -440 -225 Lab Results Last 24 Hours: Laboratory Results - last 24 hr 06/14/20 06/14/20 Range/Units 06:40 06:40 WBC 7.03 (4.0-11.0) K/uL RBC 4.65 (4.30-5.90) M/uL Hgb 13.6 (12.0-16.0) g/dL Hct 42.0 (36.0-46.0) % MCV 90.3 (80.0-98.0) fL MCH 29.2 (27.0-32.0) pg MCHC 32.4 (31.0-37.0) g/dL RDW Std Deviation 46.8 (28.0-62.0) fl RDW Coeff of Bo 14 (11.0-15.0) % Plt Count 407 H (150-400) K/uL MPV 10.10 (7.40-12.00) fL Neut % (Auto) 62.9 (48.0-80.0) % Lymph % (Auto) 29.2 (16.0-40.0) % [place] % (Auto) 7.8 (0.0-15.0) % Eos % (Auto) 0.1 (0.0-7.0) % Baso % (Auto) 0.0 (0.0-1.5) % Neut # (Auto) 4.4 (1.4-5.7) K/uL Lymph # (Auto) 2.1 (0.6-2.4) K/uL [place] # (Auto) 0.6 (0.0-0.8) K/uL Eos # (Auto) 0.0 (0.0-0.7) K/uL Baso # (Auto) 0.0 (0.0-0.1) K/uL Nucleated RBC % 0.0 /100WBC Nucleated RBCs # 0 K/uL Sodium 137 (136-145) mmol/L Potassium 4.2 (3.5-5.1) mmol/L Chloride 103 (98-107) mmol/L Carbon Dioxide 28.2 (21.0-32.0) mmol/L BUN 22 H (7.0-18.0) mg/dL Creatinine 0.6 (0.6-1.0) mg/dL Est Cr Clr Drug Dosing 61.64 mL/min Estimated GFR (MDRD) > 60.0 ml/min Glucose 107 H (74-106) mg/dL Calcium 8.3 L (8.5-10.1) mg/dL Total Bilirubin 0.5 (0.2-1.0) mg/dL AST 14 L (15-37) IU/L ALT 14 (14-63) IU/L Alkaline Phosphatase 71 (46-116) U/L Total Protein 6.1 L (6.4-8.2) g/dL Albumin 2.5 L (3.4-5.0) g/dL Globulin 3.6 (2.6-4.0) g/dL Albumin/Globulin Ratio 0.7 L (0.9-1.6) Chay Results Last 24 Hours: Microbiology 06/09/20 15:12 Aerobic Blood Culture - Preliminary Blood - Venous - Lab Draw NO GROWTH AFTER 4 DAYS Anaerobic Blood Culture - Final 06/09/20 14:27 Aerobic Blood Culture - Preliminary Blood - Venous NO GROWTH AFTER 4 DAYS Anaerobic Blood Culture - Preliminary NO GROWTH AFTER 4 DAYS Med Orders - Current: Current Medications Acetaminophen (Tylenol) 650 mg PO Q4H PRN PRN Reason: Pain (Mild 1-3)/fever Albuterol (Ventolin Hfa) 8.5 gm INH Q8H PRN PRN Reason: Wheezing Last Admin: 06/13/20 05:48 Dose: 1 puff Documented by: Carbidopa/Levodopa (Sinemet 25-100 Mg) 1 tab PO TID [facility] Last Admin: 06/14/20 06:32 Dose: 1 tab Documented by: Dexamethasone (Dexamethasone) 6 mg PO DAILY@1800 [facility] Enoxaparin Sodium (Lovenox) 40 mg SUBCUT Q24H [facility] Last Admin: 06/13/20 18:08 Dose: 40 mg Documented by: Levofloxacin (Levaquin) 500 mg PO DAILY [facility] Last Admin: 06/14/20 09:28 Dose: 500 mg Documented by: Metoprolol Succinate (Toprol Xl) 50 mg PO DAILY [facility] Last Admin: 06/14/20 09:29 Dose: 50 mg Documented by: Pantoprazole Sodium (Protonix) 40 mg PO DAILY [facility] Last Admin: 06/14/20 09:28 Dose: 40 mg Documented by: Fluorometholone 0.1% Ophth Soln 10 Ml Bottle 1 each EYERT TID [facility] Last Admin: 06/14/20 06:32 Dose: 1 each Documented by: Sertraline HCl (Zoloft) 75 mg PO DAILY [facility] Last Admin: 06/14/20 09:28 Dose: 75 mg Documented by: Discontinued Medications Albuterol (Proventil Hfa) 8.5 gm INH Q8HR PRN PRN Reason: Wheezing Albuterol/Ipratropium (Duoneb 3.0-0.5 Mg/3 Ml) 3 ml NEB ONETIME ONE Stop: 06/09/20 14:41 Last Admin: 06/09/20 14:52 Dose: 3 ml Documented by: Dexamethasone (Dexamethasone) 6 mg IVPUSH Q24H [facility] Last Admin: 06/13/20 17:46 Dose: 6 mg Documented by: Remdesivir 100 mg/ Sodium (Chloride) 100 mls @ 100 mls/hr IV Q24H [facility] Stop: 06/13/20 18:59 Last Admin: 06/13/20 17:44 Dose: 100 mls/hr Documented by: Remdesivir 200 mg/ Sodium (Chloride) 250 mls @ 250 mls/hr IV ONETIME ONE Stop: 06/09/20 17:50 Last Admin: 06/09/20 20:09 Dose: 250 mls/hr Documented by: Non-Formulary Medication (Carbidopa/Levodopa [Carbidopa-Levo 25-100 Mg Odt]) 1 tab PO TID [facility] Last Admin: 06/10/20 11:01 Dose: Not Given Documented by: Potassium Chloride (Klor-Con M20) 40 meq PO ONETIME ONE Stop: 06/10/20 10:35 Last Admin: 06/10/20 11:46 Dose: 40 meq Documented by: Sepsis Event Note - Focused Exam Vital Signs: Vital Signs Temp Pulse Pulse Resp BP BP Pulse Ox 06/14/20 12:24 36.3 C 69 16 109/50 L 93 L 06/14/20 09:29 64 137/64 06/14/20 09:21 36.6 C 64 18 137/64 95 06/14/20 07:00 06/14/20 03:35 36.6 C 60 14 133/63 95 Pulse Ox 06/14/20 12:24 06/14/20 09:29 06/14/20 09:21 06/14/20 07:00 95 06/14/20 03:35 - My Orders Last 24 Hours: My Active Orders 06/14/20 18:00 dexAMETHasone 6 mg PO DAILY@1800 - Plan Plan:: I have seen and evaluated the patient and agree with the residents note unless specified in my note
--- NOTE | 2020-06-14 13:55 | PCM.DCSUM1 ---
<Jai Perkins - Last Filed: 06/14/20 17:22> Discharge Summary - Hospital Course Free Text/Narrative:: 74-year-old female admitted for acute hypoxic respiratory failure secondary to COVID19. She has a PMH of Parkinson's disease and HTN. CXR showed b/l lower lobe infiltrates. Blood cultures were negative. Patient was treated with supplemental oxygen prn, dexamethasone and Combivent prn. She completed a 5-day course of Remdesivir and Levaquin. She also received 2 units of convalescent plasma. Patient was weaned down to 2 L of oxygen by day of discharge and was discharged with portable home oxygen. She was also discharged with home health consult. She was given scripts for 5 more days of dexamethasone, PPI, Combivent inhaler and aspirin 81 mg qd for 30 days. Advised to follow-up with PCP. - Discharge Data Discharge Date: 06/14/20 Discharge Disposition: Home, Home Health Agency 06 Condition: Stable - Referral to Home Health Date of Face to Face Encounter: 06/14/20 Reason for Homebound Status: They are able to ambulate less than 20 feet before becoming short of breath and needing to take a rest break. Weakness and dec onditioning due to hospitalization for exacerbation of disease process. Primary Care Physician: Rico Colmenares MD Skilled Need: Physical Therapy: Strengthening due to weakness from recent hospitalization, deconditioning due to disease process and gait instability. - Discharge Diagnosis/Problem(s) (1) Hypoxemia SNOMED Code(s): 509552242 ICD Code: R09.02 - HYPOXEMIA Status: Acute (2) COVID-19 SNOMED Code(s): 446935782 ICD Code: U07.1 - COVID-19 Status: Acute (3) Parkinson disease SNOMED Code(s): 56209115 ICD Code: G20 - PARKINSON'S DISEASE Status: Acute (4) HTN (hypertension) SNOMED Code(s): 51716801 ICD Code: I10 - ESSENTIAL (PRIMARY) HYPERTENSION Status: Acute - Patient Summary/Data Consults: Consultations 06/14/20 10:07 Consult to Home Health [CONS] Routine 06/14/20 11:56 Consult to Physical Therapy [PT Evaluation and Treatment] [CONS] Routine - Patient Instructions Diet: Usual Diet as Tolerated Activity: As Tolerated Notify Provider of: Fever, Increased Pain, Swelling and Redness, Drainage, Na usea and/or Vomiting Other/Special Instructions: worsening shortness of breath - Discharge Plan *PRESCRIPTION DRUG MONITORING PROGRAM REVIEWED*: Not Applicable *COPY OF PRESCRIPTION DRUG MONITORING REPORT IN PATIENT ALEX: Not Applicable Prescriptions/Med Rec: Aspirin 81 mg PO DAILY 30 Days #30 tab.chew Albuterol/Ipratropium [Combivent Respimat] 1 puff IH Q6HR PRN #1 inhaler PRN Reason: Shortness Of Breath dexAMETHasone [Dexamethasone] 6 mg PO DAILY 5 Days #15 tablet Pantoprazole [ProTONIX] 40 mg PO DAILY 5 Days #5 tab.cr Home Medications: Home Meds Metoprolol Succinate [Toprol XL 50mg] 50 mg PO DAILY 12/12/17 [History] Sertraline [Zoloft] 100 mg PO DAILY 02/03/20 [History] Acetaminophen [Tylenol] 650 mg PO Q4H PRN tablet 02/04/20 [Rx] Carbidopa/Levodopa [Carbidopa-Levo 25-100 MG ODT] 1 tab PO TID 06/09/20 [History] Fluorometholone [Fluorometholone 0.1% Ophth Susp] 1 drop EYERT TID 06/09/20 [History] Potassium Chloride 20 meq PO DAILY 06/09/20 [History] Albuterol/Ipratropium [Combivent Respimat] 1 puff IH Q6HR PRN #1 inhaler 06/14/20 [Rx] Aspirin 81 mg PO DAILY 30 Days #30 tab.chew 06/14/20 [Rx] Pantoprazole [ProTONIX] 40 mg PO DAILY 5 Days #5 tab.cr 06/14/20 [Rx] dexAMETHasone [Dexamethasone] 6 mg PO DAILY 5 Days #15 tablet 06/14/20 [Rx] Oxygen Therapy Mode: Nasal Cannula Oxygen Flow Rate (L/min): 2 Patient Handouts: Albuterol; Ipratropium respiratory inhalation spray (Combivent Respimat), COVID-19 Frequently Asked Questions, Hypoxemia, COVID-19: How to Protect Yourself and Others - [facility], Pantoprazole tablets, Aspirin, ASA oral tablets, Coronavirus Information 10/31/19, Dexamethasone tablets, Prevent the Spread of COVID-19 if You Are Sick - CDC Referrals: Tray Valadez MD [Resident] - 06/29/20 3:00 pm (Please arrive 15mins early. Bring insurance information, ID and own mask.) - Discharge Summary/Plan Comment DC Time >30 min.: No - Patient Data Vitals - Most Recent: Last Vital Signs Temp 36.3 C 06/14/20 12:24 Pulse 69 06/14/20 12:24 Resp 16 06/14/20 12:24 BP 109/50 L 06/14/20 12:24 Pulse Ox 93 L 06/14/20 12:24 Weight - Most Recent: 49.895 kg I&O - Last 24 hours: Intake & Output 06/13/20 06/14/20 06/14/20 22:59 06:59 14:59 Intake Total 360 100 Output Total 800 325 Balance -440 -225 Lab Results - Last 24 hrs: Laboratory Results - last 24 hr 06/14/20 06/14/20 Range/Units 06:40 06:40 WBC 7.03 (4.0-11.0) K/uL RBC 4.65 (4.30-5.90) M/uL Hgb 13.6 (12.0-16.0) g/dL Hct 42.0 (36.0-46.0) % MCV 90.3 (80.0-98.0) fL MCH 29.2 (27.0-32.0) pg MCHC 32.4 (31.0-37.0) g/dL RDW Std Deviation 46.8 (28.0-62.0) fl RDW Coeff of Bo 14 (11.0-15.0) % Plt Count 407 H (150-400) K/uL MPV 10.10 (7.40-12.00) fL Neut % (Auto) 62.9 (48.0-80.0) % Lymph % (Auto) 29.2 (16.0-40.0) % [place] % (Auto) 7.8 (0.0-15.0) % Eos % (Auto) 0.1 (0.0-7.0) % Baso % (Auto) 0.0 (0.0-1.5) % Neut # (Auto) 4.4 (1.4-5.7) K/uL Lymph # (Auto) 2.1 (0.6-2.4) K/uL [place] # (Auto) 0.6 (0.0-0.8) K/uL Eos # (Auto) 0.0 (0.0-0.7) K/uL Baso # (Auto) 0.0 (0.0-0.1) K/uL Nucleated RBC % 0.0 /100WBC Nucleated RBCs # 0 K/uL Sodium 137 (136-145) mmol/L Potassium 4.2 (3.5-5.1) mmol/L Chloride 103 (98-107) mmol/L Carbon Dioxide 28.2 (21.0-32.0) mmol/L BUN 22 H (7.0-18.0) mg/dL Creatinine 0.6 (0.6-1.0) mg/dL Est Cr Clr Drug Dosing 61.64 mL/min Estimated GFR (MDRD) > 60.0 ml/min Glucose 107 H (74-106) mg/dL Calcium 8.3 L (8.5-10.1) mg/dL Total Bilirubin 0.5 (0.2-1.0) mg/dL AST 14 L (15-37) IU/L ALT 14 (14-63) IU/L Alkaline Phosphatase 71 (46-116) U/L Total Protein 6.1 L (6.4-8.2) g/dL Albumin 2.5 L (3.4-5.0) g/dL Globulin 3.6 (2.6-4.0) g/dL Albumin/Globulin Ratio 0.7 L (0.9-1.6) IRMA Results - Last 24 hrs: Microbiology 06/09/20 15:12 Aerobic Blood Culture - Preliminary Blood - Venous - Lab Draw NO GROWTH AFTER 4 DAYS Anaerobic Blood Culture - Final 06/09/20 14:27 Aerobic Blood Culture - Preliminary Blood - Venous NO GROWTH AFTER 4 DAYS Anaerobic Blood Culture - Preliminary NO GROWTH AFTER 4 DAYS Med Orders - Current: Current Medications Acetaminophen (Tylenol) 650 mg PO Q4H PRN PRN Reason: Pain (Mild 1-3)/fever Albuterol (Ventolin Hfa) 8.5 gm INH Q8H PRN PRN Reason: Wheezing Last Admin: 06/13/20 05:48 Dose: 1 puff Documented by: Carbidopa/Levodopa (Sinemet 25-100 Mg) 1 tab PO TID [facility] Last Admin: 06/14/20 06:32 Dose: 1 tab Documented by: Dexamethasone (Dexamethasone) 6 mg PO DAILY@1800 GAYLE Enoxaparin Sodium (Lovenox) 40 mg SUBCUT Q24H [facility] Last Admin: 06/13/20 18:08 Dose: 40 mg Documented by: Levofloxacin (Levaquin) 500 mg PO DAILY [facility] Last Admin: 06/14/20 09:28 Dose: 500 mg Documented by: Metoprolol Succinate (Toprol Xl) 50 mg PO DAILY [facility] Last Admin: 06/14/20 09:29 Dose: 50 mg Documented by: Pantoprazole Sodium (Protonix) 40 mg PO DAILY [facility] Last Admin: 06/14/20 09:28 Dose: 40 mg Documented by: Fluorometholone 0.1% Ophth Soln 10 Ml Bottle 1 each EYERT TID [facility] Last Admin: 06/14/20 06:32 Dose: 1 each Documented by: Sertraline HCl (Zoloft) 75 mg PO DAILY [facility] Last Admin: 06/14/20 09:28 Dose: 75 mg Documented by: Discontinued Medications Albuterol (Proventil Hfa) 8.5 gm INH Q8HR PRN PRN Reason: Wheezing Albuterol/Ipratropium (Duoneb 3.0-0.5 Mg/3 Ml) 3 ml NEB ONETIME ONE Stop: 06/09/20 14:41 Last Admin: 06/09/20 14:52 Dose: 3 ml Documented by: Dexamethasone (Dexamethasone) 6 mg IVPUSH Q24H [facility] Last Admin: 06/13/20 17:46 Dose: 6 mg Documented by: Remdesivir 100 mg/ Sodium (Chloride) 100 mls @ 100 mls/hr IV Q24H [facility] Stop: 06/13/20 18:59 Last Admin: 06/13/20 17:44 Dose: 100 mls/hr Documented by: Remdesivir 200 mg/ Sodium (Chloride) 250 mls @ 250 mls/hr IV ONETIME ONE Stop: 06/09/20 17:50 Last Admin: 06/09/20 20:09 Dose: 250 mls/hr Documented by: Non-Formulary Medication (Carbidopa/Levodopa [Carbidopa-Levo 25-100 Mg Odt]) 1 tab PO TID [facility] Last Admin: 06/10/20 11:01 Dose: Not Given Documented by: Potassium Chloride (Klor-Con M20) 40 meq PO ONETIME ONE Stop: 06/10/20 10:35 Last Admin: 06/10/20 11:46 Dose: 40 meq Documented by: <Promise Preciado - Last Filed: 06/15/20 23:04> Discharge Summary - Hospital Course Free Text/Narrative:: I have seen and evaluated the patient and agree with the residents note unless specified in my note - Referral to Home Health Primary Care Physician: Rico Colmenares MD - Patient Summary/Data Consults: Consultations 06/14/20 10:07 Consult to Home Health [CONS] Routine 06/14/20 11:56 Consult to Physical Therapy [PT Evaluation and Treatment] [CONS] Routine - Patient Data Vitals - Most Recent: Last Vital Signs Temp 36.3 C 06/14/20 12:24 Pulse 69 06/14/20 12:24 Resp 16 06/14/20 12:24 BP 109/50 L 06/14/20 12:24 Pulse Ox 93 L 06/14/20 12:24 Med Orders - Current: Current Medications Discontinued Medications Acetaminophen (Tylenol) 650 mg PO Q4H PRN PRN Reason: Pain (Mild 1-3)/fever Albuterol (Proventil Hfa) 8.5 gm INH Q8HR PRN PRN Reason: Wheezing Albuterol (Ventolin Hfa) 8.5 gm INH Q8H PRN PRN Reason: Wheezing Last Admin: 06/13/20 05:48 Dose: 1 puff Documented by: Albuterol/Ipratropium (Duoneb 3.0-0.5 Mg/3 Ml) 3 ml NEB ONETIME ONE Stop: 06/09/20 14:41 Last Admin: 06/09/20 14:52 Dose: 3 ml Documented by: Carbidopa/Levodopa (Sinemet 25-100 Mg) 1 tab PO TID [facility] Last Admin: 06/14/20 13:57 Dose: 1 tab Documented by: Dexamethasone (Dexamethasone) 6 mg IVPUSH Q24H [facility] Last Admin: 06/13/20 17:46 Dose: 6 mg Documented by: Dexamethasone (Dexamethasone) 6 mg PO DAILY@1800 GAYLE Enoxaparin Sodium (Lovenox) 40 mg SUBCUT Q24H [facility] Last Admin: 06/13/20 18:08 Dose: 40 mg Documented by: Remdesivir 100 mg/ Sodium (Chloride) 100 mls @ 100 mls/hr IV Q24H [facility] Stop: 06/13/20 18:59 Last Admin: 06/13/20 17:44 Dose: 100 mls/hr Documented by: Remdesivir 200 mg/ Sodium (Chloride) 250 mls @ 250 mls/hr IV ONETIME ONE Stop: 06/09/20 17:50 Last Admin: 06/09/20 20:09 Dose: 250 mls/hr Documented by: Levofloxacin (Levaquin) 500 mg PO DAILY [facility] Last Admin: 06/14/20 09:28 Dose: 500 mg Documented by: Metoprolol Succinate (Toprol Xl) 50 mg PO DAILY [facility] Last Admin: 06/14/20 09:29 Dose: 50 mg Documented by: Non-Formulary Medication (Carbidopa/Levodopa [Carbidopa-Levo 25-100 Mg Odt]) 1 tab PO TID [facility] Last Admin: 06/10/20 11:01 Dose: Not Given Documented by: Pantoprazole Sodium (Protonix) 40 mg PO DAILY [facility] Last Admin: 06/14/20 09:28 Dose: 40 mg Documented by: Fluorometholone 0.1% Ophth Soln 10 Ml Bottle 1 each EYERT TID [facility] Last Admin: 06/14/20 13:57 Dose: 1 each Documented by: Potassium Chloride (Klor-Con M20) 40 meq PO ONETIME ONE Stop: 06/10/20 10:35 Last Admin: 06/10/20 11:46 Dose: 40 meq Documented by: Sertraline HCl (Zoloft) 75 mg PO DAILY [facility] Last Admin: 06/14/20 09:28 Dose: 75 mg Documented by:
[2020-06-14] MEDS ORDERED: Dexamethasone 4 MG Tab PO SCH (18:00)
== END 2020-06-14 15:25 | disposition home health service (06) | DRG 177 ==
LOC: MW.ED 14:15 → MW.MS 17:06
PROVIDERS: ADMIT Internal Medicine; ATTEND Internal Medicine
PROC: XW033E5 Introduction of Remdesivir Anti-infective into Peripheral Vein, Percutaneous Approach, New Technology Group 5 (ICD-10-PCS; principal; 2020-06-09)
PROC: XW13325 Transfusion of Convalescent Plasma (Nonautologous) into Peripheral Vein, Percutaneous Approach, New Technology Group 5 (ICD-10-PCS; 2020-06-09)
DX: U07.1 COVID-19 (principal); J18.9 Pneumonia, unspecified organism; R09.02 Hypoxemia; J96.01 Acute respiratory failure with hypoxia; I10 Essential (primary) hypertension; G20 Parkinson's disease; Z79.899 Other long term (current) drug therapy; Z85.3 Personal history of malignant neoplasm of breast; G70.00 Myasthenia gravis without (acute) exacerbation; Z79.82 Long term (current) use of aspirin; Z88.0 Allergy status to penicillin; Z88.1 Allergy status to other antibiotic agents; Z88.8 Allergy status to other drugs, medicaments and biological substances; Z91.048 Other nonmedicinal substance allergy status; K21.9 Gastro-esophageal reflux disease without esophagitis; H54.7 Unspecified visual loss; Z86.010 Personal history of colon polyps; F41.9 Anxiety disorder, unspecified; F32.9 Major depressive disorder, single episode, unspecified; Z90.49 Acquired absence of other specified parts of digestive tract; Z90.710 Acquired absence of both cervix and uterus
CPT/HCPCS: 36415; 71045; 80048; 84484; 85025; 87040 ×2; 93005; 99285; U0002; 36430; 80053; 81001; 85610; 85730; 86900; 86901; 93010; 97161-GP; A9270-GY; J1100; J1650; J3535-GY; J7050; J7620-GY; P9017

== ENCOUNTER 2022-01-04 22:06 | Emergency (ER) | payer MEDICARE, OTHER ==
[2022-01-04] MEDS ORDERED: Sodium Chloride 0.9% 10 ML Syringe FLUSH PRN (22:34)
[2022-01-04] MEDS ORDERED: Sodium Chloride 0.9% 2.5 ML Syringe FLUSH PRN (22:34)
[2022-01-04] MEDS ORDERED: fentaNYL 50 MCG/ML SDV IVPUSH ONE (23:24)
[2022-01-04 23:41] LABS: BLOOD UREA NITROGEN,BUN 25 mg/dL (7.0-18.0); CARBON DIOXIDE,CO2 26.6 mmol/L (21.0-32.0); CHLORIDE,CL 102 mmol/L (98-107); GLUCOSE RANDOM 128 mg/dL (74-106); SODIUM,NA 137 mmol/L (136-145)
== END 2022-01-05 02:18 ==
LOC: MW.ED 22:06
DX: S72.141A Displaced intertrochanteric fracture of right femur, initial encounter for closed fracture (principal); K21.9 Gastro-esophageal reflux disease without esophagitis; I10 Essential (primary) hypertension; Z90.49 Acquired absence of other specified parts of digestive tract; Z90.710 Acquired absence of both cervix and uterus; Z88.0 Allergy status to penicillin; Z88.8 Allergy status to other drugs, medicaments and biological substances; Z88.3 Allergy status to other anti-infective agents; Z91.048 Other nonmedicinal substance allergy status; Z79.899 Other long term (current) drug therapy; Z79.82 Long term (current) use of aspirin; Z20.822 Contact with and (suspected) exposure to COVID-19; W01.0XXA Fall on same level from slipping, tripping and stumbling without subsequent striking against object, initial encounter
CPT/HCPCS: 36415; 71045; 72170; 73502; 73552; 80053; 84484; 85025; 85610; 86850; 86900; 86901; 93005; 96374; 99285; J3010; J3490; U0002; 93010; 99284

== ENCOUNTER 2022-06-30 17:47 | Emergency (ER) | payer MEDICARE, OTHER ==
[2022-06-30] MEDS ORDERED: Acetaminophen/oxyCODONE 325-5 MG Tab PO ONE (18:55)
== END 2022-06-30 19:57 | disposition home or self-care (01) ==
LOC: MW.ED 17:47
DX: S42.031A Displaced fracture of lateral end of right clavicle, initial encounter for closed fracture (principal); S42.021A Displaced fracture of shaft of right clavicle, initial encounter for closed fracture; I10 Essential (primary) hypertension; K21.9 Gastro-esophageal reflux disease without esophagitis; Z88.0 Allergy status to penicillin; Z88.1 Allergy status to other antibiotic agents; Z88.8 Allergy status to other drugs, medicaments and biological substances; Z91.048 Other nonmedicinal substance allergy status; Z79.82 Long term (current) use of aspirin; Z79.899 Other long term (current) drug therapy; W18.30XA Fall on same level, unspecified, initial encounter
CPT/HCPCS: 71045; 73030; 99283; A9270

== ENCOUNTER 2023-05-06 17:57 | Emergency (ER) | payer MEDICARE, OTHER ==
[2023-05-06] MEDS ORDERED: Acetaminophen/Codeine 120-12 MG/5 ML Soln 5 ML UD Cup PO ONE (20:59)
[2023-05-06 21:20] LABS: BASOPHILS PERCENT AUTO 0.2 % (0.0-1.5); EOSINOPHILS ABSOLUTE AUTO 0.1 K/uL (0.0-0.7); EOSINOPHILS PERCENT AUTO 1.2 % (0.0-7.0); HEMATOCRIT 41.7 % (36.0-46.0); LYMPHOCYTES ABSOLUTE AUTO 2.3 K/uL (0.6-2.4); LYMPHOCYTES PERCENT AUTO 25.4 % (16.0-40.0); MEAN CORPUSCULAR HEMOGLOBIN 30.9 pg (27.0-32.0); MEAN CORPUSCULAR HGB CONC 33.6 g/dL (31.0-37.0); MEAN CORPUSCULAR VOLUME 92.1 fL (80.0-98.0); MONOCYTES ABSOLUTE AUTO 0.9 K/uL (0.0-0.8); NEUTROPHILS ABSOLUTE AUTO 5.8 K/uL (1.4-5.7); NEUTROPHILS PERCENT AUTO 63.2 % (48.0-80.0); NRBC ABSOLUTE 0 K/uL; PLATELET COUNT,PLT 209 K/uL (150-400); RED BLOOD CELL COUNT 4.53 M/uL (4.30-5.90)
[2023-05-06] MEDS ORDERED: Ketorolac 30 MG/ML SDV IM ONE (21:22)
[2023-05-06 21:39] LABS: A/G RATIO 0.8 (0.9-1.6); ALBUMIN 3.4 g/dL (3.4-5.0); BILIRUBIN TOTAL 0.5 mg/dL (0.2-1.0); CARBON DIOXIDE,CO2 30.7 mmol/L (21.0-32.0); CREATININE 0.7 mg/dL (0.6-1.0); EST CRCL DRUG DOSING (CG) 49.18 mL/min; POTASSIUM,K 4.3 mmol/L (3.5-5.1); PROTEIN TOTAL,TP 7.5 g/dL (6.4-8.2)
[2023-05-06 21:51] LABS: CORONAVIRUS COVID-19 NAA NEGATIVE (NEGATIVE); INFLUENZA A NAA NEGATIVE (NEGATIVE); INFLUENZA B NAA NEGATIVE (NEGATIVE)
[2023-05-06] MEDS ORDERED: Doxycycline 100 MG Cap PO ONE (21:52)
== END 2023-05-06 22:34 | disposition home or self-care (01) ==
LOC: MW.ED 17:57
DX: J40 Bronchitis, not specified as acute or chronic (principal); I10 Essential (primary) hypertension; K21.9 Gastro-esophageal reflux disease without esophagitis; Z88.0 Allergy status to penicillin; Z88.8 Allergy status to other drugs, medicaments and biological substances; Z91.048 Other nonmedicinal substance allergy status; Z79.899 Other long term (current) drug therapy; Z79.82 Long term (current) use of aspirin; Z90.49 Acquired absence of other specified parts of digestive tract; Z90.710 Acquired absence of both cervix and uterus; Z20.822 Contact with and (suspected) exposure to COVID-19
CPT/HCPCS: 0240U; 36415; 71045; 80053; 85025; 87651; 96372; 99283; J1885

== ENCOUNTER 2023-09-17 00:54 | Emergency (ER) | payer MEDICARE, OTHER ==
[2023-09-17] MEDS ORDERED: Sodium Chloride 0.9% 2.5 ML Syringe FLUSH PRN (00:55)
[2023-09-17] MEDS ORDERED: Sodium Chloride 0.9% 10 ML Syringe FLUSH PRN (00:55)
[2023-09-17] MEDS ORDERED: Albuterol/Ipratropium 3.0-0.5 MG/3 ML Neb Soln NEB ONE (01:08)
[2023-09-17 01:18] LABS: BASOPHILS ABSOLUTE AUTO 0.03 K/uL (0.00-0.20); BASOPHILS PERCENT AUTO 0.3 % (0.0-1.0); EOSINOPHILS ABSOLUTE AUTO 0.06 K/uL (0.00-0.45); EOSINOPHILS PERCENT AUTO 0.6 % (0.0-6.0); HEMATOCRIT 40.3 % (37.0-47.0); HEMOGLOBIN 14.1 g/dL (12.0-16.0); IMMATURE GRAN ABSOLUTE AUTO 0.03 K/uL (0.00-0.05); IMMATURE GRAN PERCENT AUTO 0.3 % (0.0-0.4); LYMPHOCYTES ABSOLUTE AUTO 1.79 K/uL (1.00-4.80); LYMPHOCYTES PERCENT AUTO 17.4 % (24.0-44.0); MEAN CORPUSCULAR HEMOGLOBIN 31.7 pg (28.0-32.0); MEAN CORPUSCULAR VOLUME 90.6 fL (83.0-99.0); MEAN PLATELET VOLUME 9.6 fL (9.4-12.3); MONOCYTES ABSOLUTE AUTO 1.09 K/uL (0.00-0.80); MONOCYTES PERCENT AUTO 10.6 % (0.0-8.0); NEUTROPHILS ABSOLUTE AUTO 7.27 K/uL (1.80-7.70); NEUTROPHILS PERCENT AUTO 70.8 % (41.0-71.0); PLATELET COUNT,PLT 185 K/uL (150-400); RED BLOOD CELL COUNT 4.45 M/uL (4.10-5.30); WHITE BLOOD CELL COUNT,WBC 10.27 K/uL (3.9-11.3)
[2023-09-17 01:47] LABS: ALBUMIN 3.3 g/dL (3.4-5.0); BILIRUBIN TOTAL 0.3 mg/dL (0.2-1.0); CARBON DIOXIDE,CO2 26.6 mmol/L (21.0-32.0); CREATININE 0.7 mg/dL (0.6-1.0); EST CRCL DRUG DOSING (CG) 49.18 mL/min; PROTEIN TOTAL,TP 7.2 g/dL (6.4-8.2)
[2023-09-17 01:48] LABS: LACTIC ACID 0.8 mmol/L (0.4-2.0)
[2023-09-17 01:51] LABS: A/G RATIO 0.9 (0.9-1.6)
[2023-09-17 01:58] LABS: CORONAVIRUS COVID-19 NAA NEGATIVE (NEGATIVE); INFLUENZA A NAA POSITIVE (NEGATIVE); INFLUENZA B NAA NEGATIVE (NEGATIVE); RESPIRATORY SYNCYTIAL VIR NAA NEGATIVE (NEGATIVE)
[2023-09-17 02:34] LABS: BICARBONATE,ARTERIAL 23 mEq/L (22-26); PCO2 ARTERIAL 37 mmHG (35-45); PO2 ARTERIAL 58 mmHG (80-105)
[2023-09-17] MEDS ORDERED: Oseltamivir 75 MG Cap ONE (03:15)
[2023-09-17 04:22] LABS: APPEARANCE,URINE CLOUDY; BILIRUBIN,URINE NEGATIVE (NEGATIVE); COLOR,URINE YELLOW; GLUCOSE,URINE NEGATIVE (NEGATIVE); KETONES,URINE NEGATIVE (NEGATIVE); LEUKOCYTE ESTERASE,URINE MODERATE (NEGATIVE); NITRITE,URINE POSITIVE (NEGATIVE); OCCULT BLOOD,URINE LARGE (NEGATIVE); PH,URINE 5.5 (5.0-8.0); PROTEIN,URINE 30 mg/dL (NEGATIVE); UROBILINOGEN,URINE 0.2 EU/dL (<2.0)
[2023-09-17 05:01] LABS: RBC,URINE 15-20 (0-2/HPF)
[2023-09-17 05:02] LABS: BACTERIA,URINE FEW (NEGATIVE); EPITHELIAL CELLS,URINE RARE (NONE-FEW); WBC,URINE 75-80 (0-5/HPF)
[2023-09-17] MEDS ORDERED: Oseltamivir 75 MG Cap PO SCH (09:00)
== END 2023-09-17 07:20 | disposition other institution (70) ==
LOC: MW.ED 00:54
DX: R09.02 Hypoxemia (principal); I10 Essential (primary) hypertension; Z79.899 Other long term (current) drug therapy; Z88.0 Allergy status to penicillin; Z88.8 Allergy status to other drugs, medicaments and biological substances; Z91.048 Other nonmedicinal substance allergy status; Z90.49 Acquired absence of other specified parts of digestive tract; Z90.710 Acquired absence of both cervix and uterus
CPT/HCPCS: 0241U; 36415; 36600; 70450; 71045; 80053; 81001; 82803; 83605; 84484; 85025; 86850; 86900; 86901; 87040; 93005; 99285; A9270; J3490; 93010; 99283; J7620-GY